=== PATIENT | male | born 1960 | race Caucasian/White ===

== ENCOUNTER 2023-10-11 23:22 | Emergency (ER) | payer BC, OTHER, MEDICAID, SELFPAY ==
[2023-10-11 23:32] VITALS: BP 146/77; PULSE 66; RESP 20; TEMP 37; O2SAT 92; BMI 33.2
--- NOTE | 2023-10-11 23:38 | DI.RAD.S_ITS ---
PROCEDURE: XR KNEE RT 3V INDICATIONS: pain, heard pop while walking up to curb TECHNIQUE: 3 views of the knee were acquired. COMPARISON: None. FINDINGS: Bones: No fractures or dislocations. No suspicious bony lesions. Tricompartmental degenerative changes. Soft tissues: Small joint effusion. No suspicious soft tissue calcifications. IMPRESSION: Right knee without acute fracture or dislocation. Small joint effusion with tricompartmental degenerative changes. If there are persistent symptoms or clinical suspicion for pathology, then repeat radiographs or advanced imaging (CT or MRI) may be considered for further evaluation. Dictated by: Bam Ramon M.D. on 10/12/2023 at 0:08 Approved by: Bam Ramon M.D. on 10/12/2023 at 0:11
--- NOTE | 2023-10-12 00:04 | ED_ITS ---
HPI - Extremity Injury (Lower) General Chief Complaint: Extremity Injury, Lower Stated Complaint: fall rt knee pain Time Seen by Provider: 10/11/23 23:25 Source: patient Mode of arrival: Ambulatory History of Present Illness HPI Narrative: 63-year-old male presents for 1 day of right knee pain. In computer stated complaint states ?fall right knee pain?, however patient states that he felt a ?pop? while walking up hill and did not fall. Denies any traumatic injury to his extremities. Reports pain with ambulation, particularly all over the kneecap area. Denies numbness, weakness, tingling. Significant other at bedside states ?we walked almost a mile to get here?. Related Data Allergies Allergy/AdvReac Type Severity Reaction Status Date / Time No Known Drug Allergies Allergy Verified 10/12/23 00:52 Review of Systems Review of Systems Narrative: See HPI Patient History Social History Smoking Status: Never smoker Smoking Status: Never smoker Substance Use Type: does not use Exam Initial Vital Signs Initial Vital Signs: Vital Signs Temperature 98.6 F 10/11/23 23:32 Pulse Rate 66 10/11/23 23:32 Respiratory Rate 20 10/11/23 23:32 Blood Pressure 146/77 H 10/11/23 23:32 Pulse Oximetry 92 10/11/23 23:32 Oxygen Delivery Method Room Air 10/11/23 23:32 Const: Awake, alert, no acute distress, nontoxic appearing MSK: No deformity, generalized tenderness over patellar region, 2+ DP pulses, sensation and movement intact bilaterally Skin: Warm, Dry, intact, no rashes Neuro: AO x3, CN II-XII grossly intact, moves all extremities Course Orders Ordered: ED Orders 10/11/23 23:36 Consult to ENVIRONMENTAL CONSERVATION OFFICER - Reclamation Kettle Tender Stat 10/11/23 23:38 XR knee RT 3V Stat Discontinued Medications Hydrocodone Bitart/Acetaminophen (Hydrocodone/Acet 5/325 Tablet) 1 tab PO NOW ONE Stop: 10/12/23 00:29 Last Admin: 10/12/23 00:41 Dose: Not Given Documented By: SB Vital Signs Vital signs: Vital Signs - 8 hr 10/11/23 23:32 10/12/23 01:09 Temperature 98.6 F 98.3 F Pulse Rate 66 59 L Respiratory Rate 20 16 Blood Pressure 146/77 H 122/63 Pulse Oximetry 92 93 Oxygen Delivery Method Room Air Room Air MDM - Extremity Injury (Lower) MDM Narrative Medical decision making narrative: Popping noise while walking and subsequent pain. Patient ambulated a great distance to come to the emergency department in his ambulatory in the emergency department. Generalized tenderness over knee without obvious deformity or abnormality. X-ray imaging negative for acute fracture. Possible ligamentous injury, however this would require MRI which can be obtained at a later date. Patient was placed in knee immobilizers, given crutches for support. Counseled on rice instructions and recommended orthopedic follow up. Discharge Plan Departure Patient Disposition: Home Clinical Impression: Knee sprain Qualifiers: Encounter type: initial encounter Laterality: right Instructions: DI for Knee Sprain Activity Restrictions/Additional Instructions: Take Tylenol and ibuprofen as needed for pain. You may apply ice as needed for comfort. Please follow up with Orthopedic surgery if you continued to have pain as you may eventually need an MRI, however this would not be gotten through the emergency department. Referrals: Edilberto Sumner MD [Physician] - Stand Alone Forms: Patient Portal/API
[2023-10-12 01:09] VITALS: BP 122/63; PULSE 59; RESP 16; TEMP 36.8; O2SAT 93
== END 2023-10-12 01:03 | disposition home or self-care (01) ==
PROVIDERS: Emergency Provider Emergency Medicine
DX: S83.91XA Sprain of unspecified site of right knee, initial encounter (principal); Y93.01 Activity, walking, marching and hiking
CPT/HCPCS: 29505; 73562; 99283

== ENCOUNTER 2023-11-02 19:23 | Observation (INO) | payer MEDICARE, BC, MEDICAID, SELFPAY ==
[2023-11-02] VITALS (15 sets, daily range): BP systolic 107–159; BP diastolic 62–81; PULSE 39–48; RESP 14–24; TEMP 36.8; O2SAT 94–97; BMI 32.5
--- NOTE | 2023-11-02 19:35 | DI.RAD.S_ITS ---
PROCEDURE: XR CHEST 1V INDICATIONS: chest pain TECHNIQUE: One view of the chest was acquired. COMPARISON: None. FINDINGS: Surgical changes and devices: None. Lungs and pleura: Lungs are clear. No pleural effusions or pneumothorax. Mediastinum: Mediastinal contours appear normal. Heart size is normal. Bones and chest wall: No suspicious bony lesions. Overlying soft tissues appear unremarkable. IMPRESSION: No acute cardiopulmonary abnormality is seen. Dictated by: Mina Paniagua M.D. on 11/02/2023 at 20:30 Approved by: Mina Paniagua M.D. on 11/02/2023 at 20:31
[2023-11-02 19:57] LABS: Add Manual Diff / Slide Review NO; Basophils Absolute Auto 0 /uL (0-100); Basophils Percent Auto 0.4 % (0-2); Eosinophils Absolute Auto 200 /uL (0-450); Eosinophils Percent Auto 2.4 % (2-4); Hematocrit 46.3 % (41-53); Hemoglobin 15.3 g/dL (13.5-17.5); Lymphocytes Absolute Auto 800 /uL (1100-4500); Lymphocytes Percent Auto 12.2 % (25-40); Mean Corpuscular Volume 81.8 fL (80-100); Monocytes Absolute Auto 400 /uL (0-900); Monocytes Percent Auto 5.4 % (3-14); Neutrophils Absolute Auto 5200 /uL (1500-7000); Neutrophils Percent Auto 79.6 % (50-75); Platelet Count 198 X10^3/uL (150-400); Red Blood Cell Count 5.66 X10^6/uL (4.5-5.9); Red Cell Distribution Width 13.6 % (11.6-14.8); White Blood Cell Count 6.5 X10^3/uL (4.5-11.0)
[2023-11-02 20:03] LABS: Prothrombin Time 11.1 SECONDS (9.4-12.5)
[2023-11-02] MEDS: ASPIRIN 81 MG CHEW TAB 324 MG PO (20:03)
[2023-11-02 20:06] LABS: PTT Partial Thromboplastin Tim 39 SECONDS (25.1-36.5)
[2023-11-02 20:08] LABS: Alanine Aminotransferase 25 IU/L (<50); Albumin 4.7 g/dL (3.5-5.0); Albumin Globulin Ratio 1.6 (1.0-2.8); Alkaline Phosphatase 82 U/L (38-126); Aspartate Aminotransferase 25 IU/L (17-59); BUN Creatinine Ratio 16.9 (6-22); Bilirubin Total 0.5 mg/dL (0.2-1.3); Blood Urea Nitrogen 20 mg/dL (9-20); Calcium 9.2 mg/dL (8.4-10.2); Carbon Dioxide 29 mmol/L (22-32); Chloride 103 mmol/L (98-107); Creatine Kinase 117 U/L (55-170); Estimated Glomerular Filt Rate > 60 mL/min (>60); Glucose 78 mg/dL (80-110); HEMOLYSIS < 15 (0-50); Lipase 46 U/L (23-300); Magnesium 2.1 mg/dL (1.6-2.3); Potassium 3.9 mmol/L (3.4-5.1); Sodium 137 mmol/L (137-145); Total Protein 7.7 g/dL (6.3-8.2)
[2023-11-02 20:19] LABS: Troponin I < 0.012 ng/mL (0.01-0.034)
--- NOTE | 2023-11-02 20:33 | ED_ITS ---
HPI - General Adult General Chief complaint: Chest Pain Stated complaint: shaky, sweaty, has heart issues Time Seen by Provider: 11/02/23 20:33 Source: patient Mode of arrival: Ambulatory History of Present Illness HPI narrative: 63-year-old male with no known CAD, awaiting stress test next week with Dr. Julio, had ZIO patch quality assurance monitor chassis placed in the office of Cardiology earlier today, this afternoon subsequent to that procedure he was sanding wood outside, with a fairly small digester hand, had severe anterior chest pain, became diaphoretic, when inside house and sat/laid down on couch, woke up 2 hours later, thinks he passed out on the couch, upon awakneing was still having chest discomfort aching in right upper anterior but less severe, some nausea, no longer having diaphoresis, residual chest pain not worse with upper extremity movements. Still having some nausea, no emesis. No blunt trauma or injury to his head. No headache. No focal weakness to face arm or leg. He did not try any medications to make the symptoms get better, though he did try to drink some ice tea, no change in symptoms. Here for further evaluation. Still having some chest discomfort. Related Data Home Medications Medication Instructions Recorded Confirmed lisinopril 30 mg tablet 30 mg PO DAILY 11/02/23 11/02/23 methadone 10 mg tablet 80 mg PO DAILY 11/02/23 11/03/23 tamsulosin 0.4 mg capsule (Flomax) 0.4 mg PO BEDTIME 11/02/23 11/02/23 Allergies Allergy/AdvReac Type Severity Reaction Status Date / Time No Known Drug Allergies Allergy Verified 10/12/23 00:52 Patient History Social History household members: spouse Smoking Status: Never smoker alcohol intake: never Smoking Status: Never smoker Substance Use Type: does not use Exam Narrative Exam Narrative: GENERAL: [] year old patient appears stated age. Well-developed patient, in mild distress. HEAD: Atraumatic. Normocephalic. EYES: Pupils equal round and reactive. Extraocular motions intact. No scleral icterus. No injection or drainage. ENT: Nose without bleeding, purulent drainage. Throat without erythema, tonsillar hypertrophy or exudate. Airway patent. NECK: Trachea midline. Non tender CARDIOVASCULAR: Regular rate and rhythm without murmurs, gallops, or rubs. RESPIRATORY: Clear to auscultation. Breath sounds equal bilaterally. No wheezes, rales, or rhonchi. Zio-like device left upper mid chest in place, was placed earlier today in cardiology clinic. GASTROINTESTINAL: Abdomen soft, non-tender, nondistended. EXTREMITIES: No edema or joint tenderness. BACK: Nontender without deformity or crepitance. No flank tenderness. NEURO: AOx3. SKIN: No rash or erythema of visible areas Initial Vital Signs Initial Vital Signs: Vital Signs Temperature 98.3 F 11/02/23 19:28 Pulse Rate 46 L 11/02/23 19:28 Respiratory Rate 18 11/02/23 19:28 Blood Pressure 117/77 11/02/23 19:28 Pulse Oximetry 96 11/02/23 19:28 Oxygen Delivery Method Room Air 11/02/23 19:28 Course Orders Ordered: Discontinued Medications Acetaminophen (Acetaminophen 325 Mg Tablet) 650 mg PO Q6H PRN PRN Reason: Fever/Mild Pain (1-3) Albuterol (Albuterol 2.5 Mg/3 Ml Neb (Adult)) 2.5 mg INH [id number] PRN PRN Reason: Dyspnea Aspirin (Aspirin 81 Mg Chew Tab) 324 mg PO NOW ONE Stop: 11/02/23 19:36 Last Admin: 11/02/23 20:03 Dose: 324 mg Documented By: LORETO Aspirin (Aspirin Ec 81 Mg Tablet) 81 mg PO DAILY [facility] Last Admin: 11/03/23 08:43 Dose: 81 mg Documented By: JACKSON Hydralazine HCl (Hydralazine 20 Mg/Ml Vial) 10 mg IV Q6HR PRN PRN Reason: SBP>= 160 or DBP >=110 Lisinopril (Lisinopril 10 Mg Tablet) 30 mg PO DAILY [facility] [place] Last Admin: 11/03/23 08:43 Dose: 30 mg Documented By: JACKSON Melatonin (Melatonin 3 Mg Tablet) 9 mg PO BEDTIME PRN PRN Reason: insomnia Methadone HCl (Methadone 10 Mg Tablet) 75 mg PO DAILY [facility] Last Admin: 11/03/23 08:42 Dose: 75 mg Documented By: JACKSON Morphine Sulfate (Morphine 2 Mg/Ml Inj) 2 mg IV NOW ONE Stop: 11/02/23 20:45 Last Admin: 05/16/24 21:31 Dose: 2 mg Documented By: LORETO Naloxone HCl (Naloxone 0.4 Mg/Ml Vial) 0.2 mg IV Q2MIN PRN PRN Reason: Opiate Reversal Ondansetron HCl (Ondansetron 4 Mg/2 Ml Inj) 4 mg IV NOW ONE Stop: 11/02/23 20:46 Last Admin: 11/02/23 21:32 Dose: 4 mg Documented By: LORETO Ondansetron HCl (Ondansetron 4 Mg/2 Ml Inj) 4 mg IV Q8HR PRN PRN Reason: Nausea And Vomiting Tamsulosin HCl (Tamsulosin 0.4 Mg Capsule) 0.4 mg PO BEDTIME ALON Vital Signs Vital signs: Vital Signs - 8 hr 11/02/23 19:28 11/02/23 19:53 11/02/23 19:53 Temperature 98.3 F Pulse Rate 46 L 44 L Respiratory Rate 18 23 Blood Pressure 117/77 107/62 Pulse Oximetry 96 96 Oxygen Delivery Method Room Air 11/02/23 20:00 11/02/23 20:00 11/02/23 20:30 Temperature Pulse Rate 48 L 44 L Respiratory Rate 22 20 Blood Pressure 159/81 H Pulse Oximetry 95 94 Oxygen Delivery Method 11/02/23 20:31 11/02/23 20:31 11/02/23 21:00 Temperature Pulse Rate 43 L 43 L Respiratory Rate 16 24 Blood Pressure 134/70 Pulse Oximetry 94 95 Oxygen Delivery Method 11/02/23 21:01 11/02/23 21:01 11/02/23 21:30 Temperature Pulse Rate 43 L 45 L Respiratory Rate 17 20 Blood Pressure 154/70 H Pulse Oximetry 95 94 Oxygen Delivery Method 11/02/23 21:31 11/02/23 21:31 11/02/23 22:00 Temperature Pulse Rate 43 L Respiratory Rate 19 Blood Pressure 148/75 H 135/66 Pulse Oximetry 97 Oxygen Delivery Method 11/02/23 22:00 11/02/23 22:30 11/02/23 22:31 Temperature Pulse Rate 41 L 41 L Respiratory Rate 16 14 Blood Pressure 148/70 H Pulse Oximetry 95 94 Oxygen Delivery Method 11/02/23 22:31 11/02/23 23:00 11/02/23 23:01 Temperature Pulse Rate 41 L 41 L 41 L Respiratory Rate 17 18 18 Blood Pressure Pulse Oximetry 95 94 95 Oxygen Delivery Method 11/02/23 23:01 11/02/23 23:30 11/02/23 23:30 Temperature Pulse Rate 39 L Respiratory Rate 18 Blood Pressure 139/67 148/69 H Pulse Oximetry 94 Oxygen Delivery Method 11/03/23 00:00 11/03/23 00:01 11/03/23 00:01 Temperature Pulse Rate 41 L 40 L Respiratory Rate 20 19 Blood Pressure 142/84 H Pulse Oximetry 93 92 Oxygen Delivery Method 11/03/23 00:30 11/03/23 00:30 Temperature Pulse Rate 43 L Respiratory Rate 14 Blood Pressure 151/81 H Pulse Oximetry 91 Oxygen Delivery Method Medical Decision Making Differential Diagnosis Differential Diagnosis: Exertional chest pain, ACS, PE, syncopal episode possible Lab Data Lab results reviewed: Yes I reviewed the patient's lab results. 11/02/23 19:45 11/03/23 04:53 Labs: Lab Results 11/02/23 11/02/23 Range/Units 19:45 21:41 WBC 6.5 (4.5-11.0) X10^3/uL RBC 5.66 (4.5-5.9) X10^6/uL Hgb 15.3 (13.5-17.5) g/dL Hct 46.3 (41-53) % MCV 81.8 (80-100) fL MCH 27.0 (26-34) PG MCHC 33.0 (30-36) % RDW 13.6 (11.6-14.8) % Plt Count 198 (150-400) X10^3/uL Neut % (Auto) 79.6 H (50-75) % Lymph % (Auto) 12.2 L (25-40) % Dolores % (Auto) 5.4 (3-14) % Eos % (Auto) 2.4 (2-4) % Baso % (Auto) 0.4 (0-2) % Neut # (Auto) 5200 (4807-3556) /uL Lymph # (Auto) 800 L (7064-5660) /uL Dolores # (Auto) 400 (0-900) /uL Eos # (Auto) 200 (0-450) /uL Baso # (Auto) 0 (0-100) /uL PT 11.1 (9.4-12.5) SECONDS INR 1.0 (0.9-1.3) APTT 39 H (25.1-36.5) SECONDS D-Dimer 338 (<500) ng/ml Sodium 137 (137-145) mmol/L Potassium 3.9 (3.4-5.1) mmol/L Chloride 103 (98-107) mmol/L Carbon Dioxide 29 (22-32) mmol/L BUN 20 (9-20) mg/dL Creatinine 1.18 (0.66-1.25) mg/dL Estimated GFR > 60 (>60) mL/min BUN/Creatinine Ratio 16.9 (6-22) Glucose 78 L (80-110) mg/dL Calcium 9.2 (8.4-10.2) mg/dL Magnesium 2.1 (1.6-2.3) mg/dL Total Bilirubin 0.5 (0.2-1.3) mg/dL AST 25 (17-59) IU/L ALT 25 (<50) IU/L Alkaline Phosphatase 82 (38-126) U/L Total Creatine Kinase 117 (55-170) U/L Troponin I < 0.012 < 0.012 (0.01-0.034) ng/mL Total Protein 7.7 (6.3-8.2) g/dL Albumin 4.7 (3.5-5.0) g/dL Globulin 3.0 (1.7-4.1) g/dL Albumin/Globulin Ratio 1.6 (1.0-2.8) Lipase 46 (23-300) U/L ECG Data Attestation: I personally reviewed and interpreted this ECG as follows: Interpretation: Sinus bradycardia with rate 43 bpm, no obvious ST sgment elevation or depression changes, normal PA interval, normal QRS interval, normal QTc MDM Narrative Medical decision making narrative: 63-year-old male with chest pain at onset 3:30 p.m. while standing would outside, sweatiness for about 30 minutes, then substernal chest discomfort, pressure sensation, he laid down, unclear if he fell asleep or if he passed out, woke up 2 hours later with chest discomfort persisting but less intense than prior. Screening EKG shows sinus bradycardia with rate of 43, normal intervals. No ST segment elevation depression changes obvious. T-wave inversion lead 3 but upright in leads F and 2. Initial troponin negative. Creatinine normal, D- dimer pending. CT head noncontrast study. Given oral aspirin here. Trial of morphine/Zofran for residual chest discomfort Additional Information: Interval repeat troponin negative. CT head negative. Syncope and chest pain, patient admits that he has had prior blood clot than tablets of the lungs, no longer on blood thinning medication. CTA chest ordered. CTA chest negative. Consider admission for syncope, we will consult with Cardiology on-call Spoke with Dr. Reynolds cardiology at [facility], who did not feel that patient needed to be transfer at this time. I spoke with Dr. Villegas cardiology on-call here at [place], she can consult, admit to observation telemetry, they can try to review records from [facility] tomorrow, she stated that patient will likely need follow-up Zio-device interrogation to evaluate if there was any bradycardia/tachycardia event causing syncope. We will contact hospitalist Dr. Phillips Case discussed with Dr. Phillips, accepts patient for admission to observation Critical Care Time Critical Care Time Total Critical Care Time: 35 Attestation: The high probability of a clinically significant, sudden or life threatening deterioration of the [cardiopulmonary] system(s) required my full and direct attention, intervention and personal management. The aggregate critical care time was [35] minutes. This time is in addition to time spent performing reported procedures but includes the following: [x] Data Review and interpretation [x] Patient assessment and monitoring of vital signs [x] Documentation [x] Medication orders and management Discharge Plan Departure Patient Disposition: Admitted as Observation Clinical Impression: Chest pain, Bradycardia Admit Date/Time: 11/03/23 01:03 Admit Provider: Brian Phillips
--- NOTE | 2023-11-02 20:43 | DI.CT.S_ITS ---
PROCEDURE: CT HEAD/BRAIN WO CON INDICATIONS: passed out, ?syncope TECHNIQUE: Noncontrast 4.5 mm thick angled axial sections acquired from the foramen magnum to the vertex, with coronal and sagittal reformats. For radiation dose reduction, the following was used: automated exposure control, adjustment of mA and/or kV according to patient size. COMPARISON: None. FINDINGS: Image quality: Diagnostic. CSF spaces: Basal cisterns are patent. No extra-axial fluid collections. Ventricles are normal in size and shape. Brain: No midline shift. No intracranial masses or hemorrhage. Delvalle-white matter interface is within normal limits. Skull and face: Calvarium and visualized facial bones are intact, without suspicious lesions. Sinuses: Visualized sinuses and mastoids are clear. IMPRESSION: No acute intracranial pathology. Dictated by: Mina Paniagua M.D. on 11/02/2023 at 22:19 Approved by: Mina Paniagua M.D. on 11/02/2023 at 22:21
[2023-11-02 20:58] LABS: D Dimer 338 ng/ml (<500)
[2023-11-02] MEDS: MORPHINE 2 MG/ML INJ IV (21:31)
[2023-11-02] MEDS: ONDANSETRON 4 MG/2 ML INJ IV (21:32)
[2023-11-02 22:32] LABS: Troponin I < 0.012 ng/mL (0.01-0.034)
--- NOTE | 2023-11-02 22:55 | DI.CT.S_ITS ---
PROCEDURE: CT ANGIO CHEST PE PROTOCOL INDICATIONS: syncope, chest pain, hx PE TECHNIQUE: After the administration of intravenous contrast, 2 mm thick sections acquired from the pulmonary apices to the posterior costophrenic angles. 3-dimensional maximum intensity projection (MIP) coronal and sagittal reformats were then acquired through the thorax. For radiation dose reduction, the following was used: automated exposure control, adjustment of mA and/or kV according to patient size. COMPARISON: [facility], CR, XR CHEST 1V, 11/02/2023, 19:52. FINDINGS: Image quality: Diagnostic. Pulmonary arteries: Pulmonary arteries are normal in size, and demonstrate no intraluminal filling defects to suggest central pulmonary embolism. Reflux into the IVC and hepatic veins. Lower Neck: No enlarged lymph nodes. Thyroid: No thyroid nodules which require sonographic follow up, per consensus guidelines. Axillae: No enlarged lymph nodes. Chest Wall: Unremarkable. Bones: Unremarkable. Lungs and Pleura: No pneumothorax or pleural effusions. No consolidation or suspicious nodules. Mild atelectasis at the lung bases. Heart: Heart size is normal. No pericardial effusion. Thoracic Vessels: No aortic aneurysm. Mediastinum and Liat: No enlarged lymph nodes. Esophagus: No wall thickening. No hiatal hernia. Upper Abdomen: Visualized upper abdomen solid organs and bowel loops appear normal. IMPRESSION: No pulmonary embolus. No acute cardiopulmonary process. Reflux of contrast into the IVC and hepatic veins. This could be seen in the setting of diastolic dysfunction. Dictated by: Mina Paniagua M.D. on 11/03/2023 at 0:23 Approved by: Mina Paniagua M.D. on 11/03/2023 at 0:28
[2023-11-03] VITALS (10 sets, daily range): BP systolic 122–179; BP diastolic 64–84; PULSE 40–53; RESP 14–20; TEMP 36.4–36.7; O2SAT 91–97; BMI 32.5
--- NOTE | 2023-11-03 01:13 | DI.ECHO.S_ITS ---
[facility]+ [facility] : : [address] : : [place] : : [id number] : : Phone: [phone] Echocardiogram Report + + :Name: RONNIE CARBAJAL Study Date: 11/03/2023 Height: 72 in : :[facility] ReadingLocation: Weight: 240 lb : : Gender: Male BSA: 2.3 m2 : :: 1960 Age: 63 yrs BP: 125/72 mmHg: :Reason For Study: SYNCOPE : :Ordering Physician: JOSÉ ANTONIO, : :HALEY Performed By: Antoni Maurice : :Referring: HALEY CHOU : + + Interpretation Summary 1. The left ventricular contractility is normal. Estimated ejection fraction is greater than 60% with no segmental wall motion abnormalities. No left ventricular hypertrophy is noted. No diastolic dysfunction present. 2. The right ventricular contractility is normal. 3. All cardiac chambers are of normal size. 4. There is mild aortic insufficiency noted. 5. No obvious intracardiac shunts noted. 6. No obvious intracardiac masses nor thrombi are appreciated. 7. No hemodynamically significant pericardial effusion present. Conclusion: Normal biventricular function with no significant valvular abnormalities. Procedure: A two-dimensional transthoracic echocardiogram with color flow and Doppler was performed. The study quality was technically adequate. There is no prior echocardiogram noted for this patient. The patient was in sinus bradycardia with heart rates between 38-47 bpm during the exam. Left Ventricle: Left ventricular wall thickness is borderline increased. The left ventricle is normal in size. The ejection fraction is estimated to be 60- 65%. Right Ventricle: The right ventricle is normal in size and function. Atria: The left atrial size is normal. The right atrium is normal in size. The interatrial septum grossly appears intact with no obvious evidence for an atrial septal defect. Mitral Valve: The mitral valve is normal in structure and function. There is no mitral valve stenosis. There is trace mitral regurgitation. Aortic Valve: The aortic valve is trileaflet. There is no aortic valve stenosis. There is mild aortic regurgitation. Tricuspid Valve: The tricuspid valve is normal. There is no tricuspid stenosis. There is trace tricuspid regurgitation. The right ventricular systolic pressure is estimated to be at least 37.8 mmHg based on an estimated right atrial pressure of 3 mm Hg. Pulmonic Valve: The pulmonic valve is not well visualized. There is no pulmonic valvular stenosis. There is no pulmonic valvular regurgitation. Great Vessels: The aortic root is mildly dilated. The dimensions of the ascending aorta are normal. The IVC is of normal diameter and collapses greater than 50% with a sniff. This suggests a low right atrial pressure of 3 mm Hg. Pericardium/ Pleura There is no pericardial effusion. There is no pleural effusion. MMode/2D Measurements & Calculations LVIDd: 5.6 cm LVOT diam: 2.5 cm LVIDs: 3.6 cm Ao root diam: 4.0 cm FS: 35.4 % asc Aorta Diam: 3.3 cm IVSd: 1.2 cm Ao Arch Diam (Prox Trans): 3.3 cm LVPWd: 1.0 cm LV larson. diameter/BSA (cm/m^2): 2.4 LV sys. diameter/BSA (cm/m^2): 1.6 LA A2 area: 20.9 cm2 RA long axis: 5.8 cm LA A4 area: 22.7 cm2 RA area: 21.6 cm2 LA length (vol): 5.5 cm RA vol: 68.2 ml LA vol: 72.5 ml RA : 29.6 ml/m2 LA vol index: 31.5 ml/m2 IVC diam: 1.8 cm RVD1 (basal): 3.6 cm RVD2 (mid): 3.3 cm TAPSE: 2.5 cm Doppler Measurements & Calculations Ao V2 max: 134.8 cm/sec LVOT Max Kieran: 108.4 cm/sec Ao V2 mean: 91.6 cm/sec LV V1 max P.7 mmHg Ao max P.3 mmHg LV V1 VTI: 27.5 cm Ao mean P.7 mmHg SONY(I,D): 3.7 cm2 Ao V2 VTI: 35.6 cm SONY(V,D): 3.8 cm2 sev ratio: 0.77 SONY indexed to BSA (cm^2/m^2): 1.6 AI P1/2t: 1062 msec AI dec slope: 141.2 cm/sec2 MV E max kieran: 69.6 cm/sec TR max kieran: 294.8 cm/sec MV A max kieran: 56.6 cm/sec TR max P.8 mmHg MV E/A: 1.2 Med Peak E' Kieran: 8.5 cm/sec E/E' med: 8.2 Lat Peak E' Kieran: 8.8 cm/sec E/E' lat: 7.9 E/e' average: 8.1 MV dec time: 0.25 sec SV(LVOT): 131.4 ml Reading Physician:
[2023-11-03 02:08] LABS: Troponin I < 0.012 ng/mL (0.01-0.034)
--- NOTE | 2023-11-03 04:46 | P.HP_ITS ---
History of Present Illness History of Present Illness Chief complaint: shaky, sweaty, has heart issues Narrative: 63 years old male with history of CAD, hypertension, BPH presented to the ER with syncopal episode and symptomatic bradycardia. Earlier today the patient became diaphoretic, dizzy, shaking, feeling thirsty and went inside and laid down. The patient does not remember what happened with him and thinks he might blacked out. Unclear if he laid down and fell asleep or he just passed out. He also was complaining of substernal chest discomfort. The patient was just seen by cardiology and had monitor car operator patch placed for 2 weeks and was supposed to be scheduled for stress test in the next few weeks. Denies any neurodeficits, palpitations, nausea, vomiting, abdominal pain, diarrhea or dysuria. Currently on methadone for several years due to chronic back pain. In the ER he was found to have bradycardia with down to 39 and sustaining mid 40?50. Cardiology was consulted and recommended admission for observation and further workup. CT of the chest was negative, interval repeat troponin negative, CT of the head negative, EKG shows sinus rhythm with T wave inversion in lead III. In the ER he was given aspirin, morphine, Zofran and was decided to be admitted for further management. Laboratory was essentially unremarkable except of glucose 79. [facility] Social History household members: spouse Smoking Status: Never smoker alcohol intake: never Meds Home Medications and Allergies Home Medications Medication Instructions Recorded Confirmed Type lisinopril 30 mg tablet 30 mg PO DAILY 11/02/23 11/02/23 History methadone 10 mg tablet 75 mg PO DAILY 11/02/23 11/02/23 History tamsulosin 0.4 mg capsule (Flomax) 0.4 mg PO BEDTIME 11/02/23 11/02/23 History Allergies Allergy/AdvReac Type Severity Reaction Status Date / Time No Known Drug Allergies Allergy Verified 10/12/23 00:52 Review of Systems Review of Systems ROS: Yes All systems reviewed with the patient and are negative except as otherwise documented Constitutional Constitutional: Reports as per HPI and Reports system reviewed and no additional complaints, except as documented Eyes Eyes: Reports as per HPI and Reports system reviewed and no additional complaints, except as documented ENT Ears, Nose, Mouth, and Throat: Yes as per HPI and Yes system reviewed and no additional complaints, except as documented Cardiovascular Cardiovascular: Reports system reviewed and no additional complaints, except as documented Respiratory Respiratory: Reports system reviewed and no additional complaints, except as documented Gastrointestinal Gastrointestinal: Reports system reviewed and no additional complaints, except as documented Genitourinary Genitourinary: Reports system reviewed and no additional complaints, except as documented Musculoskeletal Musculoskeletal: Reports system reviewed and no additional complaints, except as documented, Reports abnormal gait and Reports numbness Neurologic Neurologic: Reports system reviewed and no additional complaints, except as documented, Reports abnormal gait, Reports confusion and Reports numbness Psychiatric Psychiatric: Reports system reviewed and no additional complaints, except as documented and Reports confusion Exam Vital Signs (past 8 hours): - 11/02/23 21:00 11/02/23 21:01 11/02/23 21:01 Temperature Pulse Rate 43 L 43 L Respiratory Rate 24 17 Blood Pressure 154/70 H Pulse Oximetry 95 95 11/02/23 21:30 11/02/23 21:31 11/02/23 21:31 Temperature Pulse Rate 45 L 43 L Respiratory Rate 20 19 Blood Pressure 148/75 H Pulse Oximetry 94 97 11/02/23 22:00 11/02/23 22:00 11/02/23 22:30 Temperature Pulse Rate 41 L 41 L Respiratory Rate 16 14 Blood Pressure 135/66 Pulse Oximetry 95 94 11/02/23 22:31 11/02/23 22:31 11/02/23 23:00 Temperature Pulse Rate 41 L 41 L Respiratory Rate 17 18 Blood Pressure 148/70 H Pulse Oximetry 95 94 11/02/23 23:01 11/02/23 23:01 11/02/23 23:30 Temperature Pulse Rate 41 L 39 L Respiratory Rate 18 18 Blood Pressure 139/67 Pulse Oximetry 95 94 11/02/23 23:30 11/03/23 00:00 11/03/23 00:01 Temperature Pulse Rate 41 L 40 L Respiratory Rate 20 19 Blood Pressure 148/69 H Pulse Oximetry 93 92 11/03/23 00:01 11/03/23 00:30 11/03/23 00:30 Temperature Pulse Rate 43 L Respiratory Rate 14 Blood Pressure 142/84 H 151/81 H Pulse Oximetry 91 11/03/23 01:00 11/03/23 01:00 11/03/23 01:30 Temperature 97.7 F Pulse Rate 41 L 48 L Respiratory Rate 20 14 Blood Pressure 179/82 H 129/67 Pulse Oximetry 93 97 Oxygen Delivery Method Room Air Const General: cooperative, comfortable and well developed Orientation: alert and oriented x3 [facility] Head: normal to inspection, normocephalic and atraumatic Face and sinus: normal facial exam Mouth: oral mucosae normal and moist mucous membranes Throat: posterior oropharynx normal Eyes General: appearance normal, both eyes and all related structures Pupils: PERRL EOM: EOM intact bilaterally Neck Neck: normal visual inspection and full ROM Chest Chest: normal inspection of the chest Resp Effort & Inspection: normal respiratory effort and able to speak in complete sentences Auscultation: clear to auscultation bilaterally Cardio Palpation: normal PMI Rate: regular rate Rhythm: regular rhythm Heart Sounds: S1 normal and S2 normal GI Inspection: normal to inspection Palpation: soft and no hepatosplenomegaly Auscultation: normal bowel sounds Skin General: no rashes or lesions noted Lesions: no lesions Rashes: no rashes Trauma: no lacerations or abrasions Neuro General: patient alert, patient awake, patient oriented x3 and no focal motor deficits Cranial Nerves: CN's II-XI intact bilaterally Cognition: normal cognition Speech: speech normal Gait: normal gait Motor: muscle tone normal throughout Sensory Exam: no sensory deficits noted Extrem General: full ROM and no calf tenderness Psych Appearance: grossly normal Mental Status: mental status grossly normal Speech and Movement: speech and movement normal Objective Labs 11/02/23 19:45 11/02/23 19:45 Labs: Laboratory Results - last 24 hr 11/02/23 11/02/23 11/03/23 19:45 21:41 01:27 WBC 6.5 RBC 5.66 Hgb 15.3 Hct 46.3 MCV 81.8 MCH 27.0 MCHC 33.0 RDW 13.6 Plt Count 198 Neut % (Auto) 79.6 H Lymph % (Auto) 12.2 L Gilliam % (Auto) 5.4 Eos % (Auto) 2.4 Baso % (Auto) 0.4 Neut # (Auto) 5200 Lymph # (Auto) 800 L Gilliam # (Auto) 400 Eos # (Auto) 200 Baso # (Auto) 0 PT 11.1 INR 1.0 APTT 39 H D-Dimer 338 Sodium 137 Potassium 3.9 Chloride 103 Carbon Dioxide 29 BUN 20 Creatinine 1.18 Estimated GFR > 60 BUN/Creatinine Ratio 16.9 Glucose 78 L Calcium 9.2 Magnesium 2.1 Total Bilirubin 0.5 AST 25 ALT 25 Alkaline Phosphatase 82 Total Creatine Kinase 117 Troponin I < 0.012 < 0.012 < 0.012 Total Protein 7.7 Albumin 4.7 Globulin 3.0 Albumin/Globulin Ratio 1.6 Lipase 46 Assessment & Plan Assessment & Plan narrative: Symptomatic bradycardia with unclear etiology Syncope/Near Syncope -Telemonitoring to r/o any arrhythmias; -monitor K, Mg, Ca and replace as needed; -Check orthostatics; -Serial Troponins to rule out ACS; -check 2D echo, -Fall precautions/PT/OT -Start ASA -Cardiology consul Borderline hypoglycemia. Check A1c and monitor. Hypertension. Restart lisinopril. Monitor blood pressure closely Chronic back pain. Restart methadone. BPH. Restart Flomax. Time Spent With Patient Time with patient: 50 to 69 minutes with 50% spent counseling/coordinating care Quality VTE Deep Vein Thrombosis/Pulmonary Embolism Present on Admission: No MIPS - Admit I confirm the patient?s Advance Care Plan is present, Code status is documented, Surrogate decision maker is in patient?s record [If Yes, STOP here]: Yes MIPS - Meds 'Current medications' to include all prescriptions, [id number] products, herbals, cannabis/cannabidiol products, and vitamin/mineral/dietary (nutritional) supplements. I have utilized all available resources to obtain, update, or review the patient?s current medications. [If Yes, STOP here]: Yes
[2023-11-03 07:57] LABS: Troponin I < 0.012 ng/mL (0.01-0.034)
[2023-11-03] MEDS: METHADONE 10 MG TABLET 75 MG PO (08:42)
[2023-11-03] MEDS: ASPIRIN EC 81 MG TABLET PO (08:43)
[2023-11-03] MEDS: lisinopriL 10 MG TABLET 30 MG PO (08:43)
--- NOTE | 2023-11-03 11:50 | PM.DS.1 ---
History of Present Illness History of Present Illness Date Patient Seen: 11/03/23 Time Patient Seen: 11:50 Chief complaint: shaky, sweaty, has heart issues Narrative: Per admitting provider, 63 years old male with history of CAD, hypertension, BPH presented to the ER with syncopal episode and symptomatic bradycardia. Earlier today the patient became diaphoretic, dizzy, shaking, feeling thirsty and went inside and laid down. The patient does not remember what happened with him and thinks he might blacked out. Unclear if he laid down and fell asleep or he just passed out. He also was complaining of substernal chest discomfort. The patient was just seen by cardiology and had psychological operations officer patch placed for 2 weeks and was supposed to be scheduled for stress test in the next few weeks. Denies any neurodeficits, palpitations, nausea, vomiting, abdominal pain, diarrhea or dysuria. Currently on methadone for several years due to chronic back pain. In the ER he was found to have bradycardia with down to 39 and sustaining mid 40?50. Cardiology was consulted and recommended admission for observation and further workup. CT of the chest was negative, interval repeat troponin negative, CT of the head negative, EKG shows sinus rhythm with T wave inversion in lead III. In the ER he was given aspirin, morphine, Zofran and was decided to be admitted for further management. Laboratory was essentially unremarkable except of glucose 79. Discharge Providers Provider Date of admission: 11/03/23 01:03 Discharge Date: 11/03/23 Primary care physician: Doctor Kyra MD Consults: 11/03/23 01:11 Consult to Occupational Therapy Evaluate & Treat Comment: Physician Instructions: Evaluate and treat Consult to Physical Therapy Evaluate & Treat Comment: Physician Instructions: Evaluate and Treat Discharge provider: Pradeep Cooper DO Summary Hospital Course Discharge Diagnosis: Possible symptomatic bradycardia, Syncope or near syncope Borderline hypoglycemia. Hypertension. Chronic back pain. BPH. Hospital Course: This is a 63 M who presented with HTN, CAD, BPH who presented after a possible episode of diaphoresis with possible syncope. He is unable to recall much of the event, and was not seen until after the event. Initially heart rate was 39 but a sinus bradycardia and it was presumed this was possibly due to symptomatic bradycardia. His HR remained in the mid 40s on telemetry, no block was noted. Echocardiogram was unremarkable. Glucose was 78 on presentation, this may also have represented hypoglycemia however the patient had no recurrence of symptoms while here in the hospital. He already has a Zio patch on and was present during the episode. Outpatient follow up with cardiology is recommended for further review. Methadone can also cause a bradycardia, and patient would like to transition therapies away from methadone for his chronic back pain, and was given a list of local primary care providers to establish care after discharge. Time Spent with Patient Time spent: Greater than 30 minutes Exam Vital Signs (past 8 hours): - 11/03/23 05:19 11/03/23 08:43 11/03/23 08:59 Temperature 98.0 F Pulse Rate 46 L 46 L Pulse Rate [Orthostatic Lying] 44 L Pulse Rate [Orthostatic Sitting] 44 L Pulse Rate [Orthostatic Standing] 45 L Respiratory Rate 15 Blood Pressure 125/72 125/72 Blood Pressure [Orthostatic Lying] 122/64 Blood Pressure [Orthostatic Sitting] 130/73 Blood Pressure [Orthostatic Standing] 149/73 H Pulse Oximetry 95 Oxygen Flow Rate 11/03/23 09:00 Temperature 97.6 F Pulse Rate Pulse Rate [Orthostatic Lying] Pulse Rate [Orthostatic Sitting] Pulse Rate [Orthostatic Standing] Respiratory Rate Blood Pressure Blood Pressure [Orthostatic Lying] Blood Pressure [Orthostatic Sitting] Blood Pressure [Orthostatic Standing] Pulse Oximetry 93 Oxygen Flow Rate 0 Oxygen Delivery Method Room Air Oxygen Flow Rate 0 Narrative Exam Narrative: Gen: NAD CV: RRR Ext: no edema Objective Labs 11/02/23 19:45 11/03/23 04:53 Labs: Laboratory Results - last 24 hr 11/02/23 11/02/23 11/03/23 19:45 21:41 01:27 WBC 6.5 RBC 5.66 Hgb 15.3 Hct 46.3 MCV 81.8 MCH 27.0 MCHC 33.0 RDW 13.6 Plt Count 198 Neut % (Auto) 79.6 H Lymph % (Auto) 12.2 L Lipscomb % (Auto) 5.4 Eos % (Auto) 2.4 Baso % (Auto) 0.4 Neut # (Auto) 5200 Lymph # (Auto) 800 L Lipscomb # (Auto) 400 Eos # (Auto) 200 Baso # (Auto) 0 PT 11.1 INR 1.0 APTT 39 H D-Dimer 338 Sodium 137 Potassium 3.9 Chloride 103 Carbon Dioxide 29 BUN 20 Creatinine 1.18 Estimated GFR > 60 BUN/Creatinine Ratio 16.9 Glucose 78 L Calcium 9.2 Magnesium 2.1 Total Bilirubin 0.5 AST 25 ALT 25 Alkaline Phosphatase 82 Total Creatine Kinase 117 Troponin I < 0.012 < 0.012 < 0.012 Total Protein 7.7 Albumin 4.7 Globulin 3.0 Albumin/Globulin Ratio 1.6 Lipase 46 11/03/23 07:20 WBC RBC Hgb Hct MCV MCH MCHC RDW Plt Count Neut % (Auto) Lymph % (Auto) Lipscomb % (Auto) Eos % (Auto) Baso % (Auto) Neut # (Auto) Lymph # (Auto) Lipscomb # (Auto) Eos # (Auto) Baso # (Auto) PT INR APTT D-Dimer Sodium Potassium Chloride Carbon Dioxide BUN Creatinine Estimated GFR BUN/Creatinine Ratio Glucose Calcium Magnesium Total Bilirubin AST ALT Alkaline Phosphatase Total Creatine Kinase Troponin I < 0.012 Total Protein Albumin Globulin Albumin/Globulin Ratio Lipase PFSH Social History household members: spouse Smoking Status: Never smoker alcohol intake: never Discharge Plan Discharge Plan Patient Disposition: Home Provider Discharge Comment: You were admitted to the hospital with possible bradycardia. Echocardiogram is normal, no indication that you had a heart attack. Please reach out to the local offices for a primary care provider, I think you would benefit from transition away from Methadone to another opiate medication for your low back pain. No medication changes are recommended at this time. Discharge orders & Medications Prescriptions: Continued methadone 10 mg Tablet 80 mg PO DAILY tamsulosin [Flomax] 0.4 mg Capsule 0.4 mg PO BEDTIME lisinopril 30 mg Tablet 30 mg PO DAILY Follow up/Referrals: Doctor Rae MD [Primary Care Provider] - Diet/Activity/Treatments Diet: Diet as Tolerated and Regular Activity: As tolerated, no restrictions. Visit Report/Discharge Packet Stand Alone Forms: Patient Portal/API, Stroke Signs & Symptoms Discharge Data Primary Care Provider: Doctor Kyra Attending Provider: Brian Phillips Admit Date/Time: 11/03/23 01:03 Quality VTE Deep Vein Thrombosis/Pulmonary Embolism Present on Admission: No
[2023-11-03 12:47] LABS: Cholesterol 178 mg/dL (140-199); HDL Cholesterol 52 mg/dL (40-60); LDL Cholesterol Calculated 74 mg/dL (<100); Triglycerides 259 mg/dL (35-150)
[2023-11-03 12:48] LABS: Hemoglobin A1C% w Est Avg Glu 5.2 % (4.0-6.0)
[2023-11-03 12:59] LABS: Alanine Aminotransferase 20 IU/L (<50); Albumin 3.7 g/dL (3.5-5.0); Albumin Globulin Ratio 1.5 (1.0-2.8); Alkaline Phosphatase 77 U/L (38-126); Aspartate Aminotransferase 29 IU/L (17-59); BUN Creatinine Ratio 17.1 (6-22); Bilirubin Total 0.5 mg/dL (0.2-1.3); Blood Urea Nitrogen 18 mg/dL (9-20); Calcium 8.6 mg/dL (8.4-10.2); Carbon Dioxide 27 mmol/L (22-32); Chloride 104 mmol/L (98-107); Estimated Glomerular Filt Rate > 60 mL/min (>60); Globulin 2.4 g/dL (1.7-4.1); Glucose 101 mg/dL (80-110); HEMOLYSIS < 15 (0-50); Magnesium 2.2 mg/dL (1.6-2.3); Potassium 3.6 mmol/L (3.4-5.1); Sodium 134 mmol/L (137-145); Total Protein 6.1 g/dL (6.3-8.2)
[2023-11-03 13:50] LABS: Thyroid Stimulating Hormone 1.85 uIU/mL (0.47-4.68)
--- NOTE | 2023-11-03 14:54 | PC.NURSE ---
Patient is A&OX4, VSS, afebrile, Bradycardia HR in 40's on telemetry. He is ambulatory in the room and denies n/v, dizziness, SOB,CP or palpitations. He is evaluated by the hospitalist today after echo completed and cleared for discharge home today with follow up plan for PCP. He verbalizes understanding of discharge instructions, medications and plan of care. He is escorted to his private vehicle with all of his belongings this afternoon at 1345.
--- NOTE | 2023-11-03 15:26 | CM.DANOTE ---
Discharge Planning/Care Management CM Discharge Assessment Start: 11/03/23 15:24 Freq: Status: Active Protocol: Document 11/03/23 15:24 MATTHEW (Rec: 11/03/23 15:26 MATTHEW [id number]) Discharge Planning Assessment Assigned Line Supervisor RAGHAV Ni DPOA/Assigned Designee Name [place], spouse Contact Information [phone] Advance Directives? No History Provided By Patient,Medical Record Prior Living Arrangements House Household Members spouse Type of transporation used prior to Drives own vehicle admit Independent with ADL's Yes Is patient alert and oriented? Yes Needs Assistance With Home Chores / Shopping Comment Poor activity tolerance some days related to back pain Barriers to Discharge No Comment Home w/spouse, discharge order in. Close outpatient follow up. No needs from this CM team . Discharge Plan Home Transportation Arrangement Family Referrals Initiated None needed RAGHAV Black
== END 2023-11-03 13:45 | disposition home or self-care (01) ==
LOC: ED 11-03 00:51 → AC 11-03 01:04
PROVIDERS: Admitting Provider Internal Medicine; Emergency Provider Emergency Medicine; Visit Provider Internal Medicine
DX: R07.9 Chest pain, unspecified (principal); R00.1 Bradycardia, unspecified; R55 Syncope and collapse; I25.10 Atherosclerotic heart disease of native coronary artery without angina pectoris; I10 Essential (primary) hypertension
CPT/HCPCS: 36415; 70450; 71045; 71275; 80053; 80061; 82550; 83036; 83690; 83735; 84443; 84484; 85025; 85379; 85610; 85730; 93005; 93010; 93306; 96374; 96375; 99284; G0378; J2270; J2405; Q9967

== ENCOUNTER 2023-11-05 15:11 | Emergency (ER) | payer MEDICARE, BC, MEDICAID, SELFPAY ==
[2023-11-03 01:41] VITALS: BMI 32.5
[2023-11-05] VITALS (7 sets, daily range): BP systolic 116–181; BP diastolic 68–82; PULSE 40–48; RESP 15–22; TEMP 36.9; O2SAT 94–99; BMI 33.2
--- NOTE | 2023-11-05 15:26 | DI.RAD.S_ITS ---
PROCEDURE: XR CHEST 1V INDICATIONS: chest pain TECHNIQUE: One view of the chest was acquired. COMPARISON: [facility], CR, XR CHEST 1V, 11/02/2023, 19:52. FINDINGS: Surgical changes and devices: None. Lungs and pleura: Lungs are clear. No pleural effusions or pneumothorax. Mediastinum: Mediastinal contours appear normal. Heart size is normal. Bones and chest wall: No suspicious bony lesions. Overlying soft tissues appear unremarkable. IMPRESSION: No acute cardiopulmonary abnormality is seen. Dictated by: Ramiro Garcia M.D. on 11/05/2023 at 15:15 Approved by: Ramiro Garcia M.D. on 11/05/2023 at 15:16
[2023-11-05 15:51] LABS: INR 0.9 (0.9-1.3); Prothrombin Time 10.5 SECONDS (9.4-12.5)
[2023-11-05 15:53] LABS: PTT Partial Thromboplastin Tim 40 SECONDS (25.1-36.5)
[2023-11-05 15:54] LABS: Alanine Aminotransferase 24 IU/L (<50); Albumin 4.5 g/dL (3.5-5.0); Albumin Globulin Ratio 1.6 (1.0-2.8); Alkaline Phosphatase 90 U/L (38-126); Aspartate Aminotransferase 26 IU/L (17-59); BUN Creatinine Ratio 16.7 (6-22); Bilirubin Total 0.8 mg/dL (0.2-1.3); Blood Urea Nitrogen 18 mg/dL (9-20); Carbon Dioxide 29 mmol/L (22-32); Chloride 104 mmol/L (98-107); Creatine Kinase 86 U/L (55-170); Estimated Glomerular Filt Rate > 60 mL/min (>60); Globulin 2.8 g/dL (1.7-4.1); Glucose 102 mg/dL (80-110); HEMOLYSIS < 15 (0-50); Magnesium 2.3 mg/dL (1.6-2.3); Potassium 4.4 mmol/L (3.4-5.1); Sodium 137 mmol/L (137-145); Total Protein 7.3 g/dL (6.3-8.2)
[2023-11-05 15:56] LABS: Add Manual Diff / Slide Review NO; Basophils Absolute Auto 0 /uL (0-100); Basophils Percent Auto 0.5 % (0-2); Eosinophils Absolute Auto 200 /uL (0-450); Eosinophils Percent Auto 3.5 % (2-4); Hematocrit 46.6 % (41-53); Hemoglobin 15.5 g/dL (13.5-17.5); Lymphocytes Absolute Auto 900 /uL (1100-4500); Lymphocytes Percent Auto 14.2 % (25-40); Mean Corpuscular HGB Conc 33.2 % (30-36); Mean Corpuscular Hemoglobin 27.2 PG (26-34); Mean Corpuscular Volume 81.9 fL (80-100); Monocytes Absolute Auto 300 /uL (0-900); Monocytes Percent Auto 5.2 % (3-14); Neutrophils Absolute Auto 5000 /uL (1500-7000); Neutrophils Percent Auto 76.6 % (50-75); Platelet Count 201 X10^3/uL (150-400); Red Blood Cell Count 5.69 X10^6/uL (4.5-5.9); Red Cell Distribution Width 13.6 % (11.6-14.8); White Blood Cell Count 6.6 X10^3/uL (4.5-11.0)
--- NOTE | 2023-11-05 15:57 | ED.CHESTPAIN ---
HPI - Chest Pain General Chief Complaint: Chest Pain Stated Complaint: complications with his heart Time Seen by Provider: 11/05/23 15:51 Source: patient Mode of arrival: Ambulatory Limitations: no limitations History of Present Illness HPI narrative: Patient is 63-year-old male with known CAD awaiting stress test with Dr. Vasquez if he has ZIO patch monitor placed had a syncopal episode 3 days ago. He came to the ED and was evaluated, he had a full workup and was ultimately admitted for observation, thought that methadone may have caused his bradycardia. He would heart rate 40-41 which may have caused his syncopal episode. Fortunately he had the ZIO patch and at that time. Now he is presenting with just increasing shortness of breath no real chest pain or dizziness still not feeling great. He has not had recurrent episode of passing out. Heart rate remains in 40s at 44. He denies fever or chills feels like he can not take a deep breath. Denies cough, orthopnea or real significant dyspnea with exertion. Related Data Home Medications Medication Instructions Recorded Confirmed lisinopril 30 mg tablet 30 mg PO DAILY 11/02/23 11/02/23 methadone 10 mg tablet 80 mg PO DAILY 11/02/23 11/03/23 tamsulosin 0.4 mg capsule (Flomax) 0.4 mg PO BEDTIME 11/02/23 11/02/23 Allergies Allergy/AdvReac Type Severity Reaction Status Date / Time No Known Drug Allergies Allergy Verified 10/12/23 00:52 Patient History Social History household members: spouse Smoking Status: Never smoker alcohol intake: never Smoking Status: Never smoker Substance Use Type: does not use Exam Initial Vital Signs Initial Vital Signs: Vital Signs Temperature 98.4 F 11/05/23 15:26 Pulse Rate 48 L 11/05/23 15:26 Respiratory Rate 18 11/05/23 15:26 Blood Pressure 181/82 H 11/05/23 15:26 Pulse Oximetry 95 11/05/23 15:26 Oxygen Delivery Method Room Air 11/05/23 15:26 GENERAL: Alert pleasant well-appearing 63-year-old male and in no acute distress. HEENT: Head atraumatic,EOMI, pupils reactive, face symmetric, moist mucous membranes CARDIOVASCULAR: Regular rate and rhythm without murmurs, rubs or gallops. RESPIRATORY: Breath sounds equal bilaterally, no wheezes rales or rhonchi. ABDOMEN: Soft, nontender. Normoactive bowel sounds all 4 quadrants. No guarding or rebound. EXTREMITIES: Normal range of motion, no clubbing or edema. Neurovascularly intact NEUROLOGICAL: Alert and oriented x4.Normal gait and speech. Cranial nerves II through XII grossly intact. Intervention Manager strength equal bilaterally able to lift leg SKIN: Warm, dry, no laceration, no petechiae, no rashes or lesions. Course Orders Ordered: ED Orders 11/05/23 15:26 XR chest 1V Stat EKG-12 Lead Stat 11/05/23 15:33 Complete Blood Count AUTO DIFF Stat Comprehensive Metabolic Panel Stat Magnesium Stat PTT Partial Thromboplastin Jose Stat Prothrombin Time INR Stat Troponin & CK Cardiac Panel Stat Vital Signs Vital signs: Vital Signs - 8 hr 11/05/23 15:26 11/05/23 15:48 11/05/23 15:49 Temperature 98.4 F Pulse Rate 48 L 48 L 47 L Respiratory Rate 18 20 22 Blood Pressure 181/82 H Pulse Oximetry 95 94 94 Oxygen Delivery Method Room Air 11/05/23 15:49 11/05/23 16:00 11/05/23 16:00 Temperature Pulse Rate 46 L Respiratory Rate 22 Blood Pressure 162/77 H 142/78 H Pulse Oximetry 95 Oxygen Delivery Method 11/05/23 16:30 11/05/23 16:30 11/05/23 17:00 Temperature Pulse Rate 43 L 44 L Respiratory Rate 16 18 Blood Pressure 123/70 Pulse Oximetry 95 95 Oxygen Delivery Method 11/05/23 17:00 11/05/23 17:30 11/05/23 17:30 Temperature Pulse Rate 40 L Respiratory Rate 15 Blood Pressure 137/75 116/68 Pulse Oximetry 99 Oxygen Delivery Method MDM - Chest Pain Lab Data 11/05/23 15:33 11/05/23 15:33 Labs: Lab Results 11/05/23 Range/Units 15:33 WBC 6.6 (4.5-11.0) X10^3/uL RBC 5.69 (4.5-5.9) X10^6/uL Hgb 15.5 (13.5-17.5) g/dL Hct 46.6 (41-53) % MCV 81.9 (80-100) fL MCH 27.2 (26-34) PG MCHC 33.2 (30-36) % RDW 13.6 (11.6-14.8) % Plt Count 201 (150-400) X10^3/uL Neut % (Auto) 76.6 H (50-75) % Lymph % (Auto) 14.2 L (25-40) % [place] % (Auto) 5.2 (3-14) % Eos % (Auto) 3.5 (2-4) % Baso % (Auto) 0.5 (0-2) % Neut # (Auto) 5000 (5103-2194) /uL Lymph # (Auto) 900 L (4190-6519) /uL [place] # (Auto) 300 (0-900) /uL Eos # (Auto) 200 (0-450) /uL Baso # (Auto) 0 (0-100) /uL PT 10.5 (9.4-12.5) SECONDS INR 0.9 (0.9-1.3) APTT 40 H (25.1-36.5) SECONDS Sodium 137 (137-145) mmol/L Potassium 4.4 (3.4-5.1) mmol/L Chloride 104 (98-107) mmol/L Carbon Dioxide 29 (22-32) mmol/L BUN 18 (9-20) mg/dL Creatinine 1.08 (0.66-1.25) mg/dL Estimated GFR > 60 (>60) mL/min BUN/Creatinine Ratio 16.7 (6-22) Glucose 102 (80-110) mg/dL Calcium 9.0 (8.4-10.2) mg/dL Magnesium 2.3 (1.6-2.3) mg/dL Total Bilirubin 0.8 (0.2-1.3) mg/dL AST 26 (17-59) IU/L ALT 24 (<50) IU/L Alkaline Phosphatase 90 (38-126) U/L Total Creatine Kinase 86 (55-170) U/L Troponin I < 0.012 (0.01-0.034) ng/mL Total Protein 7.3 (6.3-8.2) g/dL Albumin 4.5 (3.5-5.0) g/dL Globulin 2.8 (1.7-4.1) g/dL Albumin/Globulin Ratio 1.6 (1.0-2.8) Imaging Data Chest x-ray: Radiologist's Impression: PROCEDURE: XR CHEST 1V INDICATIONS: chest pain TECHNIQUE: One view of the chest was acquired. COMPARISON: [facility], CR, XR CHEST 1V, 11/02/2023, 19:52. FINDINGS: Surgical changes and devices: None. Lungs and pleura: Lungs are clear. No pleural effusions or pneumothorax. Mediastinum: Mediastinal contours appear normal. Heart size is normal. Bones and chest wall: No suspicious bony lesions. Overlying soft tissues appear unremarkable. IMPRESSION: No acute cardiopulmonary abnormality is seen. Dictated by: Ramiro Garcia M.D. on 11/05/2023 at 15:15 ECG Data Attestation: I personally reviewed and interpreted this ECG as follows: Prior ECG tracings: available for review Interpretation: Sinus bradycardia rate 47 OK interval 182 QRS 92 QTC 403 no AV lo block no acute ischemic changes similar to previous EKGs MDM Narrative Medical decision making narrative: Patient 63-year-old male presents today with some shortness of breath and feels like he might pass out although he has not. He has known bradycardia he has a ZIO patch on in his recently admitted for a syncopal episode likely related to his bradycardia. Unclear exactly what is causing his bradycardia he has not on medications although he does take methadone which can cause some bradycardia. Patient is a in the process of possibly weaning off his methadone but has not really started yet. Today he did not pass out he has no focal deficits. He has not having any sort of chest pain. Blood work reviewed: No leukocytosis anemia IRINA electrolyte abnormality and a negative troponin. Chest x-ray has been reviewed no acute cardiopulmonary process EKG has been reviewed with out AV block third-degree block or ischemic changes [id number] cardiology on-call at [facility], updated on patient's symptoms, states that patient may actually require pacemaker however not emergently. We will definitely follow up with patient this week in clinic and tried to get an urgent evaluation. Patient updated on cardiology recommendations may require pacemaker he has not had a syncopal episode today he did have 1 this week. I suspect that this is secondary to his bradycardia. His heart rate is 42-46. However it has been this way for a number of days and documented. He has got a ZIO patch on and it was when he had a syncopal episode. Needs to follow up with Cardiology. I have discussed with him that if he should have recurrent syncopal episode or any worsening symptoms and he must return to the ED for evaluation. Discharge Plan Departure Patient Disposition: Home Clinical Impression: Symptomatic bradycardia Instructions: Bradycardia Activity Restrictions/Additional Instructions: *You have been diagnosed with bradycardia *What to do: At this time you need to be evaluated by Cardiology. You may require a pacemaker. Do not smoke cannabis Methadone it may or may not be causing her heart rate to be a little bit slower. *Continue to take medications as directed *Follow up with your primary care provider in 2-3 days or call [phone] Please call your flame brazing machine operator tomorrow to make sure that you have an appointment with them this week *Return to ER if you should have recurrent episode of passing out chest pain dizziness no Cipro or any new, worsening or concerning symptoms Prescriptions: No Action methadone 10 mg Tablet 80 mg PO DAILY tamsulosin [Flomax] 0.4 mg Capsule 0.4 mg PO BEDTIME lisinopril 30 mg Tablet 30 mg PO DAILY Referrals: Miscellaneous,Doctor, [Primary Care Provider] - Stand Alone Forms: Patient Portal/API
[2023-11-05 16:06] LABS: Troponin I < 0.012 ng/mL (0.01-0.034)
--- NOTE | 2023-11-05 16:31 | PC.NURSE ---
pt states he was here a few days ago because he had a syncopal episode that lasted a couple of hours? he was on the phone with his and then the phone rang and he asked her why she hung up on him. she told him she had been trying to get ahold of him for 2 hours. he has seen a environmental technician and currently has zio patch on currently. today he has some blurry vision and continued SOB and severe anxiety. he was worried enough he came to ER
== END 2023-11-05 18:08 | disposition home or self-care (01) ==
PROVIDERS: Emergency Provider Emergency Medicine
DX: R00.1 Bradycardia, unspecified (principal); R07.9 Chest pain, unspecified; R55 Syncope and collapse
CPT/HCPCS: 36415; 71045; 80053; 82550; 83735; 84484; 85025; 85610; 85730; 93005; 99283; 99284

== ENCOUNTER 2023-11-07 16:16 | Observation (INO) | payer MEDICARE, BC, MEDICAID, SELFPAY ==
[2023-11-03 01:41] VITALS: BMI 32.5
[2023-11-07] VITALS (44 sets, daily range): BP systolic 98–166; BP diastolic 52–100; PULSE 42–70; RESP 13–22; TEMP 36.2–36.8; O2SAT 94–99; BMI 33.2
--- NOTE | 2023-11-07 16:19 | ED_ITS ---
HPI - General Adult <Olga Lyman MD - Last Filed: 11/22/23 23:42> General Chief complaint: Chest Pain Stated complaint: chest pain/sweating/weak legs Time Seen by Provider: 11/07/23 16:19 History of Present Illness HPI narrative: 63-year-old gentleman with his 3rd visit now to the emergency department with chest pain and/or bradycardia. 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 He was seen in the emergency department on the of this month with severe anterior chest pain after doing some work in his shop. Workup at that time included CTs of the head CTA of the chest admission for syncope. Echocardiogram time of admission was unremarkable with no evidence of acute coronary syndrome. He was seen again in the emergency department on November 04 for general malaise no recurrent episodes of syncope, was found to be bradycardic with a heart rate sinus rhythm at 47. Only medication that could interfere with heart rate is methadone workup again was unremarkable. Throughout both of these visits he has had a Zio patch in place. Today he notes that he is having chest pressure and tightness that he rates as a 7/10 at home while I was working in his garage and currently at 6/10. He has been increasingly fatigued, complaining of central to right-sided chest pressure diaphoresis tremulous weakness. He had 30 minutes of nausea that has since resolved Related Data Home Medications Medication Instructions Recorded Confirmed lisinopril 30 mg tablet 30 mg PO BEDTIME 11/02/23 11/07/23 methadone 10 mg tablet 75 mg PO DAILY 11/02/23 11/07/23 tamsulosin 0.4 mg capsule (Flomax) 0.4 mg PO BEDTIME 11/02/23 11/07/23 Allergies Allergy/AdvReac Type Severity Reaction Status Date / Time No Known Drug Allergies Allergy Verified 11/20/23 18:21 Review of Systems <Olga Lyman MD - Last Filed: 11/22/23 23:42> Review of Systems Narrative: Pertinent positive and negative findings as per HPI Patient History <Olga Lyman MD - Last Filed: 11/22/23 23:42> Medical History Methadone maintenance therapy patient Hypertension BPH (benign prostatic hyperplasia) Chronic back pain Social History household members: spouse Smoking Status: Never smoker alcohol intake: never Smoking Status: Never smoker Substance Use Type: does not use Exam <Olga Lyman MD - Last Filed: 11/22/23 23:42> Initial Vital Signs Initial Vital Signs: Vital Signs Pulse Rate 60 11/07/23 16:22 Blood Pressure 166/86 H 11/07/23 16:22 General: Healthy appearing, in no acute distress. Able to give a complete and coherent history. Well-nourished well-developed HEENT: Moist mucous membranes, normal sclera with reactive pupils, Neck: No JVD, supple Respiratory: Lungs are clear to auscultation, no wheezing no rales no rhonchi. Full and symmetrical air movement Cardiac: Regular rate and rhythm no murmurs no bruits, does not have reproducible chest pain on palpation Abdomen: Soft, nontender, good bowel tones, no flank pain Skin: Warm and dry, no rashes Neurologic: Grossly neurologically intact with no obvious asymmetries or abnormalities Extremities: No trauma, well perfused Psych: Cooperative, appropriate insight and affect <Heri Isaacs DO - Last Filed: 11/07/23 21:01> Initial Vital Signs Initial Vital Signs: Vital Signs Pulse Rate 60 11/07/23 16:22 Blood Pressure 166/86 H 11/07/23 16:22 Course <Olga Lyman MD - Last Filed: 11/22/23 23:42> Orders Ordered: Discontinued Medications Acetaminophen (Acetaminophen 325 Mg Tablet) 650 mg PO Q6H PRN PRN Reason: Fever/Mild Pain (1-3) Aspirin (Aspirin 81 Mg Chew Tab) 324 mg PO NOW ONE Stop: 11/07/23 16:26 Last Admin: 11/07/23 16:31 Dose: 324 mg Documented By: ENEDELIA Aspirin (Aspirin Ec 81 Mg Tablet) 81 mg PO DAILY [facility] Last Admin: 11/08/23 08:27 Dose: 81 mg Documented By: DIEGO Enoxaparin Sodium (Enoxaparin 40 Mg/0.4 Ml Syringe) 40 mg SUBCUT DAILY [facility] Last Admin: 11/08/23 08:28 Dose: 40 mg Documented By: DIEGO Fish Oil (Fish Oil 1,000 Mg Capsule) 1,000 mg PO DAILY [facility] Last Admin: 11/08/23 08:27 Dose: 1,000 mg Documented By: DIEGO Sodium Chloride (Normal Saline 0.9%) 500 mls @ 1,000 mls/hr IV BOLUS ONE Stop: 11/07/23 17:23 Last Infusion: 11/07/23 17:35 Dose: Infused Documented By: Admin: 11/07/23 16:55 Dose: 1,000 mls/hr Documented By: ENEDELIA Lisinopril (Lisinopril 10 Mg Tablet) 30 mg PO DAILY [facility] Last Admin: 11/08/23 08:23 Dose: 30 mg Documented By: DIEGO Melatonin (Melatonin 3 Mg Tablet) 6 mg PO BEDTIME PRN PRN Reason: insomnia Methadone HCl (Methadone 10 Mg Tablet) 80 mg PO DAILY [facility] Last Admin: 11/08/23 08:27 Dose: 80 mg Documented By: DIEGO Morphine Sulfate (Morphine 4 Mg/Ml Inj) 3 mg IV Q2HR [facility] Last Admin: 11/07/23 23:21 Dose: Not Given Documented By: SH Morphine Sulfate (Morphine 4 Mg/Ml Inj) 3 mg IV Q2HR PRN PRN Reason: chest pain Nitroglycerin (Nitroglycerin 0.4 Mg Sl Tab) 0.4 mg SL [id number] PRN PRN Reason: Chest Pain Last Admin: 11/07/23 16:52 Dose: 0.4 mg Documented By: Admin: 11/07/23 16:36 Dose: 0.4 mg Documented By: ENEDELIA Nitroglycerin (Nitroglycerin 0.4 Mg Sl Tab) 0.4 mg SL [id number] PRN PRN Reason: Chest Pain Ondansetron HCl (Ondansetron 4 Mg/2 Ml Inj) 4 mg IV NOW ONE Stop: 11/07/23 16:29 Last Admin: 11/07/23 16:34 Dose: 4 mg Documented By: ENEDELIA Tamsulosin HCl (Tamsulosin 0.4 Mg Capsule) 0.4 mg PO BEDTIME [facility] Vital Signs Vital signs: Vital Signs - 8 hr 11/07/23 16:22 11/07/23 16:22 11/07/23 16:23 Temperature 97.2 F L Pulse Rate 60 59 L Respiratory Rate 18 Blood Pressure 166/86 H 166/86 H Pulse Oximetry 94 Oxygen Delivery Method Room Air 11/07/23 16:30 11/07/23 16:36 11/07/23 16:36 Temperature Pulse Rate 57 L 66 Respiratory Rate Blood Pressure 148/56 H 148/56 H Pulse Oximetry Oxygen Delivery Method 11/07/23 16:36 11/07/23 16:42 11/07/23 16:43 Temperature Pulse Rate 65 70 Respiratory Rate 21 21 Blood Pressure 116/57 L Pulse Oximetry 97 97 Oxygen Delivery Method 11/07/23 16:43 11/07/23 16:46 11/07/23 16:46 Temperature Pulse Rate 69 64 Respiratory Rate 22 19 Blood Pressure 114/59 L Pulse Oximetry 96 94 Oxygen Delivery Method Room Air 11/07/23 16:52 11/07/23 16:59 11/07/23 16:59 Temperature Pulse Rate 58 L 64 Respiratory Rate 17 Blood Pressure 114/59 L 116/56 L Pulse Oximetry 94 Oxygen Delivery Method 11/07/23 17:00 11/07/23 17:00 11/07/23 17:04 Temperature Pulse Rate 65 59 L Respiratory Rate 17 Blood Pressure 111/52 L Pulse Oximetry 94 95 Oxygen Delivery Method 11/07/23 17:04 11/07/23 17:10 11/07/23 17:10 Temperature Pulse Rate 55 L Respiratory Rate Blood Pressure 117/56 L 98/70 Pulse Oximetry 96 Oxygen Delivery Method 11/07/23 17:20 11/07/23 17:20 11/07/23 17:30 Temperature Pulse Rate 53 L Respiratory Rate 17 Blood Pressure 101/60 98/55 L Pulse Oximetry 97 Oxygen Delivery Method Room Air 11/07/23 17:30 11/07/23 17:38 11/07/23 17:38 Temperature Pulse Rate 50 L 51 L Respiratory Rate 17 Blood Pressure 107/58 L Pulse Oximetry 96 97 Oxygen Delivery Method 11/07/23 17:41 11/07/23 17:41 11/07/23 17:50 Temperature Pulse Rate 50 L Respiratory Rate 13 Blood Pressure 108/58 L 106/58 L Pulse Oximetry 97 Oxygen Delivery Method 11/07/23 17:50 11/07/23 18:00 11/07/23 18:00 Temperature Pulse Rate 50 L 50 L Respiratory Rate 16 19 Blood Pressure 99/57 L Pulse Oximetry 97 97 Oxygen Delivery Method 11/07/23 18:10 11/07/23 18:10 11/07/23 18:20 Temperature Pulse Rate 51 L 52 L Respiratory Rate 18 15 Blood Pressure 102/55 L Pulse Oximetry 97 97 Oxygen Delivery Method Room Air 11/07/23 18:20 11/07/23 18:30 11/07/23 18:30 Temperature Pulse Rate 49 L Respiratory Rate 15 Blood Pressure 105/58 L 105/56 L Pulse Oximetry 98 Oxygen Delivery Method 11/07/23 18:40 11/07/23 18:40 11/07/23 18:50 Temperature Pulse Rate 48 L Respiratory Rate 18 Blood Pressure 111/58 L 125/100 H Pulse Oximetry 99 Oxygen Delivery Method 11/07/23 18:50 11/07/23 19:00 11/07/23 19:00 Temperature Pulse Rate 47 L 46 L Respiratory Rate 21 13 Blood Pressure 111/93 H Pulse Oximetry 99 98 Oxygen Delivery Method 11/07/23 19:11 11/07/23 19:20 11/07/23 19:20 Temperature Pulse Rate 45 L Respiratory Rate 15 Blood Pressure 116/58 L 115/61 Pulse Oximetry 98 Oxygen Delivery Method 11/07/23 19:30 11/07/23 19:30 11/07/23 19:40 Temperature Pulse Rate 44 L Respiratory Rate 13 Blood Pressure 112/63 113/64 Pulse Oximetry 97 Oxygen Delivery Method 11/07/23 19:40 11/07/23 19:50 11/07/23 20:00 Temperature Pulse Rate 43 L 43 L Respiratory Rate 14 14 Blood Pressure 115/63 Pulse Oximetry 98 98 Oxygen Delivery Method Room Air 11/07/23 20:00 11/07/23 20:10 11/07/23 20:10 Temperature Pulse Rate 42 L Respiratory Rate 19 Blood Pressure 113/61 120/63 Pulse Oximetry 99 Oxygen Delivery Method 11/07/23 20:20 11/07/23 20:30 11/07/23 20:30 Temperature Pulse Rate 42 L Respiratory Rate 14 Blood Pressure 113/60 119/64 Pulse Oximetry 96 Oxygen Delivery Method 11/07/23 20:40 11/07/23 20:40 Temperature Pulse Rate 42 L Respiratory Rate 16 Blood Pressure 120/61 Pulse Oximetry 96 Oxygen Delivery Method Room Air <Heri Isaacs DO - Last Filed: 11/07/23 21:01> Orders Ordered: Discontinued Medications Acetaminophen (Acetaminophen 325 Mg Tablet) 650 mg PO Q6H PRN PRN Reason: Fever/Mild Pain (1-3) Aspirin (Aspirin 81 Mg Chew Tab) 324 mg PO NOW ONE Stop: 11/07/23 16:26 Last Admin: 11/07/23 16:31 Dose: 324 mg Documented By: ENEDELIA Aspirin (Aspirin Ec 81 Mg Tablet) 81 mg PO DAILY [facility] Last Admin: 11/08/23 08:27 Dose: 81 mg Documented By: DIEGO Enoxaparin Sodium (Enoxaparin 40 Mg/0.4 Ml Syringe) 40 mg SUBCUT DAILY [facility] Last Admin: 11/08/23 08:28 Dose: 40 mg Documented By: DIEGO Fish Oil (Fish Oil 1,000 Mg Capsule) 1,000 mg PO DAILY [facility] Last Admin: 11/08/23 08:27 Dose: 1,000 mg Documented By: DIEGO Sodium Chloride (Normal Saline 0.9%) 500 mls @ 1,000 mls/hr IV BOLUS ONE Stop: 11/07/23 17:23 Last Infusion: 11/07/23 17:35 Dose: Infused Documented By: Admin: 11/07/23 16:55 Dose: 1,000 mls/hr Documented By: ENEDELIA Lisinopril (Lisinopril 10 Mg Tablet) 30 mg PO DAILY [facility] Last Admin: 11/08/23 08:23 Dose: 30 mg Documented By: DIEGO Melatonin (Melatonin 3 Mg Tablet) 6 mg PO BEDTIME PRN PRN Reason: insomnia Methadone HCl (Methadone 10 Mg Tablet) 80 mg PO DAILY [facility] Last Admin: 11/08/23 08:27 Dose: 80 mg Documented By: DIEGO Morphine Sulfate (Morphine 4 Mg/Ml Inj) 3 mg IV Q2HR [facility] Last Admin: 11/07/23 23:21 Dose: Not Given Documented By: Morphine Sulfate (Morphine 4 Mg/Ml Inj) 3 mg IV Q2HR PRN PRN Reason: chest pain Nitroglycerin (Nitroglycerin 0.4 Mg Sl Tab) 0.4 mg SL [id number] PRN PRN Reason: Chest Pain Last Admin: 11/07/23 16:52 Dose: 0.4 mg Documented By: Admin: 11/07/23 16:36 Dose: 0.4 mg Documented By: ENEDELIA Nitroglycerin (Nitroglycerin 0.4 Mg Sl Tab) 0.4 mg SL [id number] PRN PRN Reason: Chest Pain Ondansetron HCl (Ondansetron 4 Mg/2 Ml Inj) 4 mg IV NOW ONE Stop: 11/07/23 16:29 Last Admin: 11/07/23 16:34 Dose: 4 mg Documented By: ENEDELIA Tamsulosin HCl (Tamsulosin 0.4 Mg Capsule) 0.4 mg PO BEDTIME ALON Vital Signs Vital signs: Vital Signs - 8 hr 11/07/23 16:22 11/07/23 16:22 11/07/23 16:23 Temperature 97.2 F L Pulse Rate 60 59 L Respiratory Rate 18 Blood Pressure 166/86 H 166/86 H Pulse Oximetry 94 Oxygen Delivery Method Room Air 11/07/23 16:30 11/07/23 16:36 11/07/23 16:36 Temperature Pulse Rate 57 L 66 Respiratory Rate Blood Pressure 148/56 H 148/56 H Pulse Oximetry Oxygen Delivery Method 11/07/23 16:36 11/07/23 16:42 11/07/23 16:43 Temperature Pulse Rate 65 70 Respiratory Rate 21 21 Blood Pressure 116/57 L Pulse Oximetry 97 97 Oxygen Delivery Method 11/07/23 16:43 11/07/23 16:46 11/07/23 16:46 Temperature Pulse Rate 69 64 Respiratory Rate 22 19 Blood Pressure 114/59 L Pulse Oximetry 96 94 Oxygen Delivery Method Room Air 11/07/23 16:52 11/07/23 16:59 11/07/23 16:59 Temperature Pulse Rate 58 L 64 Respiratory Rate 17 Blood Pressure 114/59 L 116/56 L Pulse Oximetry 94 Oxygen Delivery Method 11/07/23 17:00 11/07/23 17:00 11/07/23 17:04 Temperature Pulse Rate 65 59 L Respiratory Rate 17 Blood Pressure 111/52 L Pulse Oximetry 94 95 Oxygen Delivery Method 11/07/23 17:04 11/07/23 17:10 11/07/23 17:10 Temperature Pulse Rate 55 L Respiratory Rate Blood Pressure 117/56 L 98/70 Pulse Oximetry 96 Oxygen Delivery Method 11/07/23 17:20 11/07/23 17:20 11/07/23 17:30 Temperature Pulse Rate 53 L Respiratory Rate 17 Blood Pressure 101/60 98/55 L Pulse Oximetry 97 Oxygen Delivery Method Room Air 11/07/23 17:30 11/07/23 17:38 11/07/23 17:38 Temperature Pulse Rate 50 L 51 L Respiratory Rate 17 Blood Pressure 107/58 L Pulse Oximetry 96 97 Oxygen Delivery Method 11/07/23 17:41 11/07/23 17:41 11/07/23 17:50 Temperature Pulse Rate 50 L Respiratory Rate 13 Blood Pressure 108/58 L 106/58 L Pulse Oximetry 97 Oxygen Delivery Method 11/07/23 17:50 11/07/23 18:00 11/07/23 18:00 Temperature Pulse Rate 50 L 50 L Respiratory Rate 16 19 Blood Pressure 99/57 L Pulse Oximetry 97 97 Oxygen Delivery Method 11/07/23 18:10 11/07/23 18:10 11/07/23 18:20 Temperature Pulse Rate 51 L 52 L Respiratory Rate 18 15 Blood Pressure 102/55 L Pulse Oximetry 97 97 Oxygen Delivery Method Room Air 11/07/23 18:20 11/07/23 18:30 11/07/23 18:30 Temperature Pulse Rate 49 L Respiratory Rate 15 Blood Pressure 105/58 L 105/56 L Pulse Oximetry 98 Oxygen Delivery Method 11/07/23 18:40 11/07/23 18:40 11/07/23 18:50 Temperature Pulse Rate 48 L Respiratory Rate 18 Blood Pressure 111/58 L 125/100 H Pulse Oximetry 99 Oxygen Delivery Method 11/07/23 18:50 11/07/23 19:00 11/07/23 19:00 Temperature Pulse Rate 47 L 46 L Respiratory Rate 21 13 Blood Pressure 111/93 H Pulse Oximetry 99 98 Oxygen Delivery Method 11/07/23 19:11 11/07/23 19:20 11/07/23 19:20 Temperature Pulse Rate 45 L Respiratory Rate 15 Blood Pressure 116/58 L 115/61 Pulse Oximetry 98 Oxygen Delivery Method 11/07/23 19:30 11/07/23 19:30 11/07/23 19:40 Temperature Pulse Rate 44 L Respiratory Rate 13 Blood Pressure 112/63 113/64 Pulse Oximetry 97 Oxygen Delivery Method 11/07/23 19:40 11/07/23 19:50 11/07/23 20:00 Temperature Pulse Rate 43 L 43 L Respiratory Rate 14 14 Blood Pressure 115/63 Pulse Oximetry 98 98 Oxygen Delivery Method Room Air 11/07/23 20:00 11/07/23 20:10 11/07/23 20:10 Temperature Pulse Rate 42 L Respiratory Rate 19 Blood Pressure 113/61 120/63 Pulse Oximetry 99 Oxygen Delivery Method 11/07/23 20:20 11/07/23 20:30 11/07/23 20:30 Temperature Pulse Rate 42 L Respiratory Rate 14 Blood Pressure 113/60 119/64 Pulse Oximetry 96 Oxygen Delivery Method 11/07/23 20:40 11/07/23 20:40 Temperature Pulse Rate 42 L Respiratory Rate 16 Blood Pressure 120/61 Pulse Oximetry 96 Oxygen Delivery Method Room Air Medical Decision Making <Olga Lyman MD - Last Filed: 11/22/23 23:42> Lab Data 11/08/23 04:59 11/08/23 04:59 Labs: Lab Results 11/07/23 11/07/23 Range/Units 16:26 18:52 WBC 7.0 (4.5-11.0) X10^3/uL RBC 5.80 (4.5-5.9) X10^6/uL Hgb 16.0 (13.5-17.5) g/dL Hct 48.0 (41-53) % MCV 82.7 (80-100) fL MCH 27.6 (26-34) PG MCHC 33.3 (30-36) % RDW 13.7 (11.6-14.8) % Plt Count 197 (150-400) X10^3/uL Neut % (Auto) 68.8 (50-75) % Lymph % (Auto) 22.5 L (25-40) % [place] % (Auto) 5.7 (3-14) % Eos % (Auto) 2.1 (2-4) % Baso % (Auto) 0.9 (0-2) % Neut # (Auto) 4900 (4766-3668) /uL Lymph # (Auto) 1600 (7667-6743) /uL [place] # (Auto) 400 (0-900) /uL Eos # (Auto) 100 (0-450) /uL Baso # (Auto) 100 (0-100) /uL PT 10.8 (9.4-12.5) SECONDS INR 0.9 (0.9-1.3) APTT 44 H (25.1-36.5) SECONDS Sodium 136 L (137-145) mmol/L Potassium 4.0 (3.4-5.1) mmol/L Chloride 102 (98-107) mmol/L Carbon Dioxide 29 (22-32) mmol/L BUN 21 H (9-20) mg/dL Creatinine 1.29 H (0.66-1.25) mg/dL Estimated GFR > 60 (>60) mL/min BUN/Creatinine Ratio 16.3 (6-22) Glucose 96 (80-110) mg/dL Calcium 9.2 (8.4-10.2) mg/dL Magnesium 2.2 (1.6-2.3) mg/dL Total Bilirubin 0.9 (0.2-1.3) mg/dL AST 26 (17-59) IU/L ALT 28 (<50) IU/L Alkaline Phosphatase 99 (38-126) U/L Total Creatine Kinase 75 51 L (55-170) U/L Troponin I < 0.012 < 0.012 (0.01-0.034) ng/mL NT-Pro-B Natriuret Pep 89 (<125) pg/mL Total Protein 7.7 (6.3-8.2) g/dL Albumin 4.7 (3.5-5.0) g/dL Globulin 3.0 (1.7-4.1) g/dL Albumin/Globulin Ratio 1.6 (1.0-2.8) Lipase 35 (23-300) U/L MDM Narrative Medical decision making narrative: CC: Chest pressure and tightness Complicating co-morbidities: Hypertension, chronic back pain. This is his 3rd visit for similar complaints including an overnight hospital evaluation since November 01 Data collected from: patient Medical records reviewed: ER notes from the , discharge summary from the hospitalization in the , ER notes from the and all lab studies and echocardiogram etcetera are reviewed in detail Differential considered: Acute coronary syndrome. For similar complaints he has already had a CT angiogram to rule out pulmonary embolism or significant pulmonary abnormality. He has had an echocardiogram that does not show significant wall abnormalities. Lab work repeatedly has not had elevated troponins Exam documented above, pertinent findings include: Patient appears to be uncomfortable, left-sided chest tightness otherwise benign Lab Test results independently reviewed as above. Pertinent findings: CBC is unremarkable Coagulation studies are unremarkable Chemistries show slight bump in creatinine from 1-1.3 over 3 day period. No liver abnormalities Troponin is undetectable Lipase is reassuring Independently reviewed EKG: Sinus rhythm, leftward axis, normal intervals. No acute ischemic changes Imaging studies independently reviewed: Chest x-ray is unremarkable Consultations: Treatments: Re-evaluations: Discussion: <Heri Isaacs DO - Last Filed: 11/07/23 21:01> Medical Records Medical records reviewed: Yes I reviewed the patient's medical records. Lab Data Lab results reviewed: Yes I reviewed the patient's lab results. Labs: Lab Results 11/07/23 11/07/23 Range/Units 16:26 18:52 WBC 7.0 (4.5-11.0) X10^3/uL RBC 5.80 (4.5-5.9) X10^6/uL Hgb 16.0 (13.5-17.5) g/dL Hct 48.0 (41-53) % MCV 82.7 (80-100) fL MCH 27.6 (26-34) PG MCHC 33.3 (30-36) % RDW 13.7 (11.6-14.8) % Plt Count 197 (150-400) X10^3/uL Neut % (Auto) 68.8 (50-75) % Lymph % (Auto) 22.5 L (25-40) % [place] % (Auto) 5.7 (3-14) % Eos % (Auto) 2.1 (2-4) % Baso % (Auto) 0.9 (0-2) % Neut # (Auto) 4900 (6797-6521) /uL Lymph # (Auto) 1600 (5621-2505) /uL [place] # (Auto) 400 (0-900) /uL Eos # (Auto) 100 (0-450) /uL Baso # (Auto) 100 (0-100) /uL PT 10.8 (9.4-12.5) SECONDS INR 0.9 (0.9-1.3) APTT 44 H (25.1-36.5) SECONDS Sodium 136 L (137-145) mmol/L Potassium 4.0 (3.4-5.1) mmol/L Chloride 102 (98-107) mmol/L Carbon Dioxide 29 (22-32) mmol/L BUN 21 H (9-20) mg/dL Creatinine 1.29 H (0.66-1.25) mg/dL Estimated GFR > 60 (>60) mL/min BUN/Creatinine Ratio 16.3 (6-22) Glucose 96 (80-110) mg/dL Calcium 9.2 (8.4-10.2) mg/dL Magnesium 2.2 (1.6-2.3) mg/dL Total Bilirubin 0.9 (0.2-1.3) mg/dL AST 26 (17-59) IU/L ALT 28 (<50) IU/L Alkaline Phosphatase 99 (38-126) U/L Total Creatine Kinase 75 51 L (55-170) U/L Troponin I < 0.012 < 0.012 (0.01-0.034) ng/mL NT-Pro-B Natriuret Pep 89 (<125) pg/mL Total Protein 7.7 (6.3-8.2) g/dL Albumin 4.7 (3.5-5.0) g/dL Globulin 3.0 (1.7-4.1) g/dL Albumin/Globulin Ratio 1.6 (1.0-2.8) Lipase 35 (23-300) U/L MDM Narrative Medical decision making narrative: CC: Chest pressure and tightness Complicating co-morbidities: Hypertension, chronic back pain. This is his 3rd visit for similar complaints including an overnight hospital evaluation since November 01 Data collected from: patient Medical records reviewed: ER notes from the , discharge summary from the hospitalization in the , ER notes from the and all lab studies and echocardiogram etcetera are reviewed in detail Differential considered: Acute coronary syndrome. For similar complaints he has already had a CT angiogram to rule out pulmonary embolism or significant pulmonary abnormality. He has had an echocardiogram that does not show significant wall abnormalities. Lab work repeatedly has not had elevated troponins Exam documented above, pertinent findings include: Patient appears to be uncomfortable, left-sided chest tightness otherwise benign Lab Test results independently reviewed as above. Pertinent findings: CBC is unremarkable Coagulation studies are unremarkable Chemistries show slight bump in creatinine from 1-1.3 over 3 day period. No liver abnormalities Troponin is undetectable Lipase is reassuring Independently reviewed EKG: Sinus rhythm, leftward axis, normal intervals. No acute ischemic changes Imaging studies independently reviewed: Chest x-ray is unremarkable Consultations: Treatments: Re-evaluations: Discussion: Dr Isaacs: Received turned over. Review patient's history and physical and workup up to this point. Patient has had 2- troponins. A nonischemic EKG. He returns for the 3rd time for cardiac symptoms. He remains bradycardic which is most likely related to his methadone. He did get some improvement with the chest discomfort with nitro. When he was admitted here to the hospital a couple days ago he had an echocardiogram but no stress test. I did discuss the case with Dr. 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 Torres recommended admission to the hospital for stress test as he stated that he was going to need a stress test at some point whether that has with an admission to the hospital or as an outpatient and given this is his 3rd visit to the emergency department who recommended admission for further testing. Discussed the case with Dr. Duncan who will admit for further evaluation and treatment. Discharge Plan Departure Patient Disposition: Admitted as Observation Clinical Impression: Chest pain, Bradycardia Admit Date/Time: 11/07/23 20:56 Admit Provider: Arnav Lino
--- NOTE | 2023-11-07 16:25 | DI.RAD.S_ITS ---
PROCEDURE: XR CHEST 1V INDICATIONS: chest pain TECHNIQUE: One view of the chest was acquired. COMPARISON: [facility], CR, XR CHEST 1V, 11/05/2023, 15:54. [facility], CR, XR CHEST 1V, 11/02/2023, 19:52. FINDINGS: Surgical changes and devices: Left chest wall generator Lungs and pleura: Lungs are clear. No pleural effusions or pneumothorax. Mediastinum: Mediastinal contours appear normal. Heart size is normal. Bones and chest wall: No suspicious bony lesions. Overlying soft tissues appear unremarkable. IMPRESSION: No acute cardiopulmonary abnormality is seen. Dictated by: Martin Day M.D. on 11/07/2023 at 17:19 Approved by: Martin Day M.D. on 11/07/2023 at 17:19
[2023-11-07] MEDS: ASPIRIN 81 MG CHEW TAB 324 MG PO (16:31)
[2023-11-07] MEDS: ONDANSETRON 4 MG/2 ML INJ IV (16:34)
[2023-11-07 16:36] LABS: Add Manual Diff / Slide Review NO; Basophils Absolute Auto 100 /uL (0-100); Basophils Percent Auto 0.9 % (0-2); Eosinophils Absolute Auto 100 /uL (0-450); Eosinophils Percent Auto 2.1 % (2-4); Lymphocytes Absolute Auto 1600 /uL (1100-4500); Lymphocytes Percent Auto 22.5 % (25-40); Mean Corpuscular HGB Conc 33.3 % (30-36); Mean Corpuscular Hemoglobin 27.6 PG (26-34); Mean Corpuscular Volume 82.7 fL (80-100); Monocytes Absolute Auto 400 /uL (0-900); Monocytes Percent Auto 5.7 % (3-14); Neutrophils Absolute Auto 4900 /uL (1500-7000); Neutrophils Percent Auto 68.8 % (50-75); Platelet Count 197 X10^3/uL (150-400); Red Cell Distribution Width 13.7 % (11.6-14.8)
[2023-11-07] MEDS: NITROGLYCERIN 0.4 MG SL TAB SL ×2 (16:36→16:52)
[2023-11-07 16:41] LABS: INR 0.9 (0.9-1.3); Prothrombin Time 10.8 SECONDS (9.4-12.5)
--- NOTE | 2023-11-07 16:41 | PC.NURSE ---
Pt RIGHT hand is cold and cap refill is greater than 2 seconds with blue discoloration to his RIGHT hand fingers.
[2023-11-07 16:43] LABS: PTT Partial Thromboplastin Tim 44 SECONDS (25.1-36.5)
[2023-11-07 16:54] LABS: Alanine Aminotransferase 28 IU/L (<50); Albumin 4.7 g/dL (3.5-5.0); Albumin Globulin Ratio 1.6 (1.0-2.8); Alkaline Phosphatase 99 U/L (38-126); Aspartate Aminotransferase 26 IU/L (17-59); BUN Creatinine Ratio 16.3 (6-22); Bilirubin Total 0.9 mg/dL (0.2-1.3); Blood Urea Nitrogen 21 mg/dL (9-20); Calcium 9.2 mg/dL (8.4-10.2); Carbon Dioxide 29 mmol/L (22-32); Chloride 102 mmol/L (98-107); Creatine Kinase 75 U/L (55-170); Estimated Glomerular Filt Rate > 60 mL/min (>60); Glucose 96 mg/dL (80-110); HEMOLYSIS < 15 (0-50); Lipase 35 U/L (23-300); Magnesium 2.2 mg/dL (1.6-2.3); Sodium 136 mmol/L (137-145); Total Protein 7.7 g/dL (6.3-8.2)
[2023-11-07] MEDS: SODIUM CHLORIDE 0.9% 500 ML 1000 ML IV (16:55)
--- NOTE | 2023-11-07 16:57 | PC.NURSE ---
Pt right hand now warm after being wrapped in warm blanket. Cap refill is less than 2 seconds and color is normal.
[2023-11-07 17:05] LABS: Troponin I < 0.012 ng/mL (0.01-0.034)
[2023-11-07 18:56] LABS: NT-proBNP (BNP-Adult 18+) 89 pg/mL (<125)
[2023-11-07 19:19] LABS: Creatine Kinase 51 U/L (55-170)
[2023-11-07 19:32] LABS: Troponin I < 0.012 ng/mL (0.01-0.034)
--- NOTE | 2023-11-07 21:13 | P.HP_ITS ---
History of Present Illness History of Present Illness Date Patient Seen: 11/07/23 Time Patient Seen: 22:15 Chief complaint: chest pain/sweating/weak legs Narrative: 63 y/o with PMH of HTN, BPH, methadone treatment for chronic back pain / opiate use, who had several visits to hospital over the past few weeks with recurrent chest pain, SOB, diaphoresis. He was placed in observation last week, had negative troponins, unremarkable echocardiogram. He was bradycardic on both prior and today's visit. He had one syncopal episode that was suspected to be related to it. He established with cardiology at [facility] and has currently Zio patch. Supposed to see Dr Julio this week. ED attending, Dr Isaacs discussed patient's 3rd visit for chest pain in 1-[address] Torres, connie scratcher for [facility] cardiology who recommended placement in observation for stress test. [facility] Medical History (Updated 11/07/23 @ 21:44 by Arnav Gill MD) Methadone maintenance therapy patient Hypertension BPH (benign prostatic hyperplasia) Chronic back pain Social History household members: spouse Smoking Status: Never smoker alcohol intake: never Meds Home Medications and Allergies Home Medications Medication Instructions Recorded Confirmed Type lisinopril 30 mg tablet 30 mg PO BEDTIME 11/02/23 11/07/23 History methadone 10 mg tablet 75 mg PO DAILY 11/02/23 11/07/23 History tamsulosin 0.4 mg capsule (Flomax) 0.4 mg PO BEDTIME 11/02/23 11/07/23 History Allergies Allergy/AdvReac Type Severity Reaction Status Date / Time No Known Drug Allergies Allergy Verified 10/12/23 00:52 Review of Systems Constitutional Comments: w/o fever, chills, weight changes, malaise, generalized weakness, sweats Cardiovascular Comments: chest pain - substernal, sharp, sometimes radiates to left sometimes to right. Occasionally accompanied by diaphoresis and SOB. No aggravating or alleviating factors. Intensity anywhere from 3-9/10 Respiratory Comments: No cough, episodic SOB Gastrointestinal Comments: w/o N/V, bloody or dark stool Genitourinary Comments: some voiding hesitancy, on Flomax. Without dysuria or hematuria Musculoskeletal Comments: severe degenerative disease of LS with chronic LBP, sciatica, claudication and Rt foot drop. He had limited surgery with Dr Campbell, remains in pain. Neurologic Comments: RLE weakness - neurogenic claudication Hematologic/Lymphatic Comments: w/o easy bruising or bleeding Exam Vital Signs (past 8 hours): - 11/07/23 16:22 11/07/23 16:22 11/07/23 16:23 Temperature 97.2 F L Pulse Rate 60 59 L Respiratory Rate 18 Blood Pressure 166/86 H 166/86 H Pulse Oximetry 94 Oxygen Delivery Method Room Air 11/07/23 16:30 11/07/23 16:36 11/07/23 16:36 Temperature Pulse Rate 57 L 66 Respiratory Rate Blood Pressure 148/56 H 148/56 H Pulse Oximetry Oxygen Delivery Method 11/07/23 16:36 11/07/23 16:42 11/07/23 16:43 Temperature Pulse Rate 65 70 Respiratory Rate 21 21 Blood Pressure 116/57 L Pulse Oximetry 97 97 Oxygen Delivery Method 11/07/23 16:43 11/07/23 16:46 11/07/23 16:46 Temperature Pulse Rate 69 64 Respiratory Rate 22 19 Blood Pressure 114/59 L Pulse Oximetry 96 94 Oxygen Delivery Method Room Air 11/07/23 16:52 11/07/23 16:59 11/07/23 16:59 Temperature Pulse Rate 58 L 64 Respiratory Rate 17 Blood Pressure 114/59 L 116/56 L Pulse Oximetry 94 Oxygen Delivery Method 11/07/23 17:00 11/07/23 17:00 11/07/23 17:04 Temperature Pulse Rate 65 59 L Respiratory Rate 17 Blood Pressure 111/52 L Pulse Oximetry 94 95 Oxygen Delivery Method 11/07/23 17:04 11/07/23 17:10 11/07/23 17:10 Temperature Pulse Rate 55 L Respiratory Rate Blood Pressure 117/56 L 98/70 Pulse Oximetry 96 Oxygen Delivery Method 11/07/23 17:20 11/07/23 17:20 11/07/23 17:30 Temperature Pulse Rate 53 L Respiratory Rate 17 Blood Pressure 101/60 98/55 L Pulse Oximetry 97 Oxygen Delivery Method Room Air 11/07/23 17:30 11/07/23 17:38 11/07/23 17:38 Temperature Pulse Rate 50 L 51 L Respiratory Rate 17 Blood Pressure 107/58 L Pulse Oximetry 96 97 Oxygen Delivery Method 11/07/23 17:41 11/07/23 17:41 11/07/23 17:50 Temperature Pulse Rate 50 L Respiratory Rate 13 Blood Pressure 108/58 L 106/58 L Pulse Oximetry 97 Oxygen Delivery Method 11/07/23 17:50 11/07/23 18:00 11/07/23 18:00 Temperature Pulse Rate 50 L 50 L Respiratory Rate 16 19 Blood Pressure 99/57 L Pulse Oximetry 97 97 Oxygen Delivery Method 11/07/23 18:10 11/07/23 18:10 11/07/23 18:20 Temperature Pulse Rate 51 L 52 L Respiratory Rate 18 15 Blood Pressure 102/55 L Pulse Oximetry 97 97 Oxygen Delivery Method Room Air 11/07/23 18:20 11/07/23 18:30 11/07/23 18:30 Temperature Pulse Rate 49 L Respiratory Rate 15 Blood Pressure 105/58 L 105/56 L Pulse Oximetry 98 Oxygen Delivery Method 11/07/23 18:40 11/07/23 18:40 11/07/23 18:50 Temperature Pulse Rate 48 L Respiratory Rate 18 Blood Pressure 111/58 L 125/100 H Pulse Oximetry 99 Oxygen Delivery Method 11/07/23 18:50 11/07/23 19:00 11/07/23 19:00 Temperature Pulse Rate 47 L 46 L Respiratory Rate 21 13 Blood Pressure 111/93 H Pulse Oximetry 99 98 Oxygen Delivery Method 11/07/23 19:11 11/07/23 19:20 11/07/23 19:20 Temperature Pulse Rate 45 L Respiratory Rate 15 Blood Pressure 116/58 L 115/61 Pulse Oximetry 98 Oxygen Delivery Method 11/07/23 19:30 11/07/23 19:30 11/07/23 19:40 Temperature Pulse Rate 44 L Respiratory Rate 13 Blood Pressure 112/63 113/64 Pulse Oximetry 97 Oxygen Delivery Method 11/07/23 19:40 11/07/23 19:50 11/07/23 20:00 Temperature Pulse Rate 43 L 43 L Respiratory Rate 14 14 Blood Pressure 115/63 Pulse Oximetry 98 98 Oxygen Delivery Method Room Air 11/07/23 20:00 11/07/23 20:10 11/07/23 20:10 Temperature Pulse Rate 42 L Respiratory Rate 19 Blood Pressure 113/61 120/63 Pulse Oximetry 99 Oxygen Delivery Method 11/07/23 20:20 11/07/23 20:30 11/07/23 20:30 Temperature Pulse Rate 42 L Respiratory Rate 14 Blood Pressure 113/60 119/64 Pulse Oximetry 96 Oxygen Delivery Method 11/07/23 20:40 11/07/23 20:40 Temperature Pulse Rate 42 L Respiratory Rate 16 Blood Pressure 120/61 Pulse Oximetry 96 Oxygen Delivery Method Room Air Oxygen Delivery Method Room Air Const Other: Sitting in bed in no distress HENMT Other: normocephalic, glasses, EOMI Neck Other: supple Resp Other: normal respiratory effort Cardio Other: Sinus bradycardia - in 50-ies GI Other: w/o abdominal distension or tenderness Back/Spine/Pelvis Other: severe degenerative disease of LS with chric LBP, sciatica, claudication and Rt foot drop. He had limited surgery with Dr Campbell, remains in pain. Skin Other: no rashes Neuro Other: w/o focal weakness or numbness, headache. Extrem Other: w/lo swelling Psych Other: Lucid, appropriate mood Objective ECG Impression: NSR, w/o ischemic changes, 1st degree AV block Labs 11/07/23 16:26 11/07/23 16:26 Labs: Laboratory Results - last 24 hr 11/07/23 11/07/23 16:26 18:52 WBC 7.0 RBC 5.80 Hgb 16.0 Hct 48.0 MCV 82.7 MCH 27.6 MCHC 33.3 RDW 13.7 Plt Count 197 Neut % (Auto) 68.8 Lymph % (Auto) 22.5 L [place] % (Auto) 5.7 Eos % (Auto) 2.1 Baso % (Auto) 0.9 Neut # (Auto) 4900 Lymph # (Auto) 1600 [place] # (Auto) 400 Eos # (Auto) 100 Baso # (Auto) 100 PT 10.8 INR 0.9 APTT 44 H Sodium 136 L Potassium 4.0 Chloride 102 Carbon Dioxide 29 BUN 21 H Creatinine 1.29 H Estimated GFR > 60 BUN/Creatinine Ratio 16.3 Glucose 96 Calcium 9.2 Magnesium 2.2 Total Bilirubin 0.9 AST 26 ALT 28 Alkaline Phosphatase 99 Total Creatine Kinase 75 51 L Troponin I < 0.012 < 0.012 NT-Pro-B Natriuret Pep 89 Total Protein 7.7 Albumin 4.7 Globulin 3.0 Albumin/Globulin Ratio 1.6 Lipase 35 Assessment & Plan Assessment and plan (1) Drug-induced sinus bradycardia: Status: Acute (2) Chest pain: Status: Acute (3) Hypertriglyceridemia: Status: Acute (4) Hypertension: Status: Acute (5) BPH (benign prostatic hyperplasia): Status: Acute (6) Methadone maintenance therapy patient: Status: Acute (7) S/P spinal surgery: Status: Acute Assessment & Plan narrative: 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 - stress test - started ASA Methadone Maintenance / Chronic LBP with sciatica - 80 mg / day for several months, prescribed in [place], recently moved to [place] - possibly causing bradycardia - he used to be on Oxycontin and Dilaudid HTN - Lisinopril 30 mg daily Hypertryglicidemia - > 300, not diabetic, LDL, HDL WNR - started fish oil BPH - Flomax DVT prophylaxis - Lovenox Time Spent With Patient Time with patient: 50 to 69 minutes with 50% spent counseling/coordinating care Quality MIPS - Admit I confirm the patient?s Advance Care Plan is present, Code status is documented, Surrogate decision maker is in patient?s record [If Yes, STOP here]: Yes MIPS - Meds 'Current medications' to include all prescriptions, [id number] products, herbals, cannabis/cannabidiol products, and vitamin/mineral/dietary (nutritional) supplements. I have utilized all available resources to obtain, update, or review the patient?s current medications. [If Yes, STOP here]: Yes
[2023-11-08] VITALS: BP 130/74; PULSE 53; RESP 18; TEMP 37.1; O2SAT 94
[2023-11-08 04:00] VITALS: BP 127/70; PULSE 47; RESP 16; TEMP 36.4; O2SAT 96
[2023-11-08 05:46] LABS: Add Manual Diff / Slide Review NO; Basophils Absolute Auto 0 /uL (0-100); Basophils Percent Auto 0.4 % (0-2); Eosinophils Absolute Auto 200 /uL (0-450); Eosinophils Percent Auto 3.6 % (2-4); Hematocrit 43.1 % (41-53); Hemoglobin 14.4 g/dL (13.5-17.5); Lymphocytes Absolute Auto 1200 /uL (1100-4500); Lymphocytes Percent Auto 22.1 % (25-40); Mean Corpuscular HGB Conc 33.3 % (30-36); Mean Corpuscular Hemoglobin 27.5 PG (26-34); Mean Corpuscular Volume 82.5 fL (80-100); Monocytes Absolute Auto 400 /uL (0-900); Monocytes Percent Auto 6.7 % (3-14); Neutrophils Absolute Auto 3800 /uL (1500-7000); Neutrophils Percent Auto 67.2 % (50-75); Platelet Count 180 X10^3/uL (150-400); Red Blood Cell Count 5.23 X10^6/uL (4.5-5.9); Red Cell Distribution Width 13.8 % (11.6-14.8); White Blood Cell Count 5.6 X10^3/uL (4.5-11.0)
--- NOTE | 2023-11-08 05:53 | PC.ADMIT ---
[email or web address] Admission Note: Patient admitted to AC unit at 22:00. Alert and oriented x 4, ambulating independently. NPO @ 04:00. Oriented to room and call light, call light within reach. The patient,Mahendra Norwood,63 y/o, was given written information regarding hospital policies, unit procedures and contact persons. Patient's smoking status: Never smoker. Vital Signs - 8 hr 11/07/23 22:00 11/08/23 00:00 11/08/23 04:00 Temperature 98.2 F 98.8 F 97.6 F Pulse Rate 44 L 53 L 47 L Respiratory Rate 17 18 16 Blood Pressure 122/79 130/74 127/70 Pulse Oximetry 96 94 96 Oxygen Flow Rate 0 0 0
[2023-11-08 05:57] LABS: BUN Creatinine Ratio 16.5 (6-22); Blood Urea Nitrogen 20 mg/dL (9-20); Calcium 8.2 mg/dL (8.4-10.2); Carbon Dioxide 28 mmol/L (22-32); Chloride 104 mmol/L (98-107); Estimated Glomerular Filt Rate > 60 mL/min (>60); Glucose 103 mg/dL (80-110); HEMOLYSIS < 15 (0-50); Potassium 4.1 mmol/L (3.4-5.1); Sodium 135 mmol/L (137-145)
[2023-11-08 08:00] VITALS: BP 111/56; PULSE 50; RESP 20; TEMP 37.1; O2SAT 94; O2SAT 99
[2023-11-08 08:23] VITALS: BP 111/56
[2023-11-08] MEDS: lisinopriL 10 MG TABLET 30 MG PO (08:23)
[2023-11-08] MEDS: FISH OIL 1,000 MG CAPSULE 1000 MG PO (08:27)
[2023-11-08] MEDS: ASPIRIN EC 81 MG TABLET PO (08:27)
[2023-11-08] MEDS: METHADONE 10 MG TABLET 80 MG PO (08:27)
[2023-11-08] MEDS: ENOXAPARIN 40 MG/0.4 ML SYRINGE SUBCUT (08:28)
--- NOTE | 2023-11-08 10:56 | CM.DANOTE ---
DCP Assessment Note Pt is a 63yo M here following chest pain. Pt had a recent admission 11/03/23 and two recent ED visits, 10/11/23 and 11/05/23, for similar reasons. PCP None listed. SPRING BENDER gave him info card for arranging SOC with provider here. Payer out of state [employer] and [facility]. SPRING BENDER reviewed EMR. Per hospitalist in morning rounds, stress test pending, potential dc today pending results. SPRING BENDER met with pt in room. Pt reports is active/indep/drives at baseline. Pt lives with spouse in [place]. Pt denies any CM needs at this time. Pt hopeful to dc by 2pm. SPRING BENDER updated RN/provider on hopeful dc by 2pm. Plan: Anticipate home later today, denies any CM need. No barriers to safe dc home identified at this time. Transport with friend in POV. CM team will continue to follow as needed. RAGHAV Sosa Discharge Planning/Care Management CM Discharge Assessment Start: 11/08/23 10:55 Freq: Status: Active Protocol: Document 11/08/23 10:55 (Rec: 11/08/23 10:56 [email or web address]) Discharge Planning Assessment Assigned Lumber Carrier Operator RAGHAV Ge DPOA/Assigned Designee Name roby Golden Contact Information [phone] Advance Directives? No History Provided By Patient,Medical Record Prior Living Arrangements House Household Members spouse Type of transporation used prior to Drives own vehicle admit Independent with ADL's Yes Is patient alert and oriented? Yes Barriers to Discharge No Comment Home w/spouse, Close outpatient follow up. No needs from this CM team. Discharge Plan Home Transportation Arrangement Family Referrals Initiated None needed Whiteboard Updated in Patient Room with Yes name and ext. # of Lumber Carrier Operator Review Status In Process Please Provide Date Initial DC 11/08/23 Assessment Was Performed Next Review Type Continued Stay Review
--- NOTE | 2023-11-08 11:15 | PC.NURSE ---
Pt to Nuclear Medicine for Stress test.
--- NOTE | 2023-11-08 12:53 | PM.DS.1 ---
History of Present Illness History of Present Illness Chief complaint: chest pain/sweating/weak legs Narrative: 63 y/o with PMH of HTN, BPH, methadone treatment for chronic back pain / opiate use, who had several visits to hospital over the past few weeks with recurrent chest pain, SOB, diaphoresis. He was placed in observation last week, had negative troponins, unremarkable echocardiogram. He was bradycardic on both prior and today's visit. He had one syncopal episode that was suspected to be related to it. He established with cardiology at [facility] and has currently Zio patch. Supposed to see Dr Julio this week. ED attending, Dr Isaacs discussed patient's 3rd visit for chest pain in 1-[address] Torres, commercial production editor for [facility] cardiology who recommended placement in observation for stress test. 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 Underwent nuclear stress test which showed no ischemic changes and was therefore a low-risk study. Already had normal outpatient echo. Will f/up with stitcher standard machine Dr. Julio as outpatient. Exam Vital Signs (past 8 hours): - 11/08/23 08:00 11/08/23 08:00 11/08/23 08:23 Temperature 98.7 F 98.7 F Pulse Rate 50 L 50 L Respiratory Rate 20 20 Blood Pressure 111/56 L 111/56 L 111/56 L Pulse Oximetry 94 99 Oxygen Flow Rate 0 Oxygen Delivery Method Room Air Oxygen Flow Rate 0 Const Other: Sitting in bed in no distress HENMT Other: normocephalic, glasses, EOMI Neck Other: supple Resp Other: normal respiratory effort Cardio Other: Sinus bradycardia - in 50-ies GI Other: w/o abdominal distension or tenderness Back/Spine/Pelvis Other: severe degenerative disease of LS with chric LBP, sciatica, claudication and Rt foot drop. He had limited surgery with Dr Campbell, remains in pain. Skin Other: no rashes Neuro Other: w/o focal weakness or numbness, headache. Extrem Other: w/lo swelling Psych Other: Lucid, appropriate mood Objective Labs 11/08/23 04:59 11/08/23 04:59 Labs: Laboratory Results - last 24 hr 11/07/23 11/07/23 11/08/23 16:26 18:52 04:59 WBC 7.0 5.6 RBC 5.80 5.23 Hgb 16.0 14.4 Hct 48.0 43.1 MCV 82.7 82.5 MCH 27.6 27.5 MCHC 33.3 33.3 RDW 13.7 13.8 Plt Count 197 180 Neut % (Auto) 68.8 67.2 Lymph % (Auto) 22.5 L 22.1 L [place] % (Auto) 5.7 6.7 Eos % (Auto) 2.1 3.6 Baso % (Auto) 0.9 0.4 Neut # (Auto) 4900 3800 Lymph # (Auto) 1600 1200 [place] # (Auto) 400 400 Eos # (Auto) 100 200 Baso # (Auto) 100 0 PT 10.8 INR 0.9 APTT 44 H Sodium 136 L 135 L Potassium 4.0 4.1 Chloride 102 104 Carbon Dioxide 29 28 BUN 21 H 20 Creatinine 1.29 H 1.21 Estimated GFR > 60 > 60 BUN/Creatinine Ratio 16.3 16.5 Glucose 96 103 Calcium 9.2 8.2 L Magnesium 2.2 Total Bilirubin 0.9 AST 26 ALT 28 Alkaline Phosphatase 99 Total Creatine Kinase 75 51 L Troponin I < 0.012 < 0.012 NT-Pro-B Natriuret Pep 89 Total Protein 7.7 Albumin 4.7 Globulin 3.0 Albumin/Globulin Ratio 1.6 Lipase 35 PFSH Medical History (Updated 11/07/23 @ 21:44 by Arnav Gill MD) Methadone maintenance therapy patient Hypertension BPH (benign prostatic hyperplasia) Chronic back pain Social History household members: spouse Smoking Status: Never smoker alcohol intake: never Discharge Plan Discharge Plan Patient Disposition: Home Provider Discharge Comment: Your stress test was normal suggesting your chest pain is not from your heart. Please follow-up with your stitcher standard machine. Discharge orders & Medications Prescriptions: Continued methadone 10 mg Tablet 75 mg PO DAILY tamsulosin [Flomax] 0.4 mg Capsule 0.4 mg PO BEDTIME lisinopril 30 mg Tablet 30 mg PO BEDTIME Follow up/Referrals: Doctor Rae MD [Primary Care Provider] - Visit Report/Discharge Packet Stand Alone Forms: Patient Portal/API, Stroke Signs & Symptoms Discharge Data Primary Care Provider: Doctor Kyra Attending Provider: Arnav Lino Admit Date/Time: 11/07/23 20:56
--- NOTE | 2023-11-08 13:13 | PC.NURSE ---
Pt is dressed and ready for discharge home. IV and tele have been removed. No change in prescriptions. Went over d/c instructions with Pt-discussed d/c meds, time of last dose, reviewed stroke education, encouraged Pt to drink plenty of fluids to prevent constipation or dehydration, discussed coming to the ER if he has chest pain or shortness of breath that does not resolve with rest. 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 Pt denied further questions and will be taken out via w/c by TECHNICAL PROGRAMS MANAGER to POV with friend and all belongings when he finishes his lunch.
--- NOTE | 2023-11-08 13:32 | PC.NURSE ---
Pt decided that he would just walk home rather than calling a friend since he lives only a few blocks away. Pt out via w/c to front entrance to go home.
--- NOTE | 2023-11-08 19:31 | DI.NM.S_ITS ---
DATE OF SERVICE: 11/07/2023 PROCEDURE: Exercise perfusion study. INDICATIONS: Hypertension, recurrent chest pain. RADIOPHARMACEUTICAL: 27.5 mCi technetium-99m Myoview IV was injected at stress and 10.7 mCi technetium-99m Myoview IV was injected at rest. It is a 1-day protocol. CARDIAC STRESS: The patient underwent exercise stress test under the supervision of an attending staff using standard Pieter protocol. The patient walked on Pieter protocol for 10.1 minutes. Achieved maximum heart rate of 144, which was 93% of target heart rate. Resting blood pressure 116/80 and peak blood pressure 152/86. Achieved 10.1 METs of workload. SORAYA 0%. Baseline rhythm sinus with sinus bradycardia, heart rate in the 40s. During stress, no convincing ischemic changes seen. No significant arrhythmias. The patient had atypical left mid axillary chest discomfort, which was on a scale of 1 to 10, 6 in intensity at peak exercise, which got resolved at rest. This was a different pain than the pain he had at the time of admission. At that time, he had right chest and shoulder pressure. RAW DATA: There is increased subdiaphragmatic activity. The patient's weight is 245 pounds. GATED STUDY: Stress LV ejection fraction 65% without any obvious wall motion abnormalities. Resting end-diastolic volume 146 mL. TID ratio 0.84, which is within normal limit. Lung/heart ratio 0.38, which is within normal limit. MYOCARDIAL PERFUSION SCAN: Stress supine, resting supine and stress prone images were compared to each other. Stress supine and resting supine images revealed moderate-size, mildly decreased perfusion of inferior wall extending into the inferoapex, which got significantly resolved during stress prone images, suggestive of diaphragmatic tissue attenuation artifact. Summed stress score and summed rest score is zero. CONCLUSION: This is a normal myocardial perfusion study with evidence of diaphragmatic tissue attenuation artifact, which got resolved during stress prone images. Summed stress score and summed rest score is zero. Preserved LV function. Average exercise tolerance. Normal hemodynamic response. Baseline sinus bradycardia with preserved chronotropic response. No significant arrhythmias. Atypical chest discomfort. Overall, low-risk exercise perfusion study. Mahendra Norwood - HARMONY/alejandrina/AY doc#: [id number]/job#: [id number] dd: 11/08/2023 12:55:00 dt: 11/08/2023 19:05:00 DICTATING MD/COPIES TO: Sera Hayward MD COPIES MNE: ZAIDA;
== END 2023-11-08 13:33 | disposition home or self-care (01) ==
LOC: ED 20:56 → AC 20:57
PROVIDERS: Emergency Medicine; Admitting Provider Internal Medicine; Emergency Provider Emergency Medicine; Referring Provider Emergency Medicine; Visit Provider Internal Medicine
DX: R07.9 Chest pain, unspecified (principal); R00.1 Bradycardia, unspecified; T40.2X5A Adverse effect of other opioids, initial encounter; F11.21 Opioid dependence, in remission; I10 Essential (primary) hypertension; E78.1 Pure hyperglyceridemia; N40.0 Benign prostatic hyperplasia without lower urinary tract symptoms; Z98.890 Other specified postprocedural states
CPT/HCPCS: 36415; 71045; 78452; 80048; 80053; 82550; 83690; 83735; 83880; 84484; 85025; 85610; 85730; 93005; 93017; 96361; 96372; 96374; 99284; G0378; A9270; A9502; J1650; J2405

== ENCOUNTER 2023-11-20 18:17 | Emergency (ER) | payer BC, OTHER, MEDICAID, SELFPAY ==
[2023-11-07 21:09] VITALS: BMI 33.2
[2023-11-20 18:21] VITALS: BP 153/81; PULSE 56; RESP 17; TEMP 36.5; O2SAT 97; BMI 32.5
--- NOTE | 2023-11-20 18:24 | DI.RAD.S_ITS ---
PROCEDURE: XR CHEST 1V INDICATIONS: chest pain TECHNIQUE: One view of the chest was acquired. COMPARISON: [facility], CR, XR CHEST 1V, 11/07/2023, 16:35. FINDINGS: Surgical changes and devices: None. Lungs and pleura: Lungs are clear. No pleural effusions or pneumothorax. Mediastinum: Mediastinal contours appear normal. Heart size is normal. Bones and chest wall: No suspicious bony lesions. Overlying soft tissues appear unremarkable. IMPRESSION: No acute cardiopulmonary abnormality is seen. Approved by: Laney Morton M.D.,Ph.D. on 11/20/2023 at 21:25
[2023-11-20] MEDS: ASPIRIN 81 MG CHEW TAB 324 MG PO (18:45)
[2023-11-20 18:57] LABS: Add Manual Diff / Slide Review NO; Basophils Absolute Auto 0 /uL (0-100); Basophils Percent Auto 0.4 % (0-2); Eosinophils Absolute Auto 100 /uL (0-450); Eosinophils Percent Auto 2.2 % (2-4); Hematocrit 45.6 % (41-53); Hemoglobin 15.5 g/dL (13.5-17.5); Lymphocytes Absolute Auto 1000 /uL (1100-4500); Lymphocytes Percent Auto 15.5 % (25-40); Mean Corpuscular Hemoglobin 27.9 PG (26-34); Mean Corpuscular Volume 82.2 fL (80-100); Monocytes Absolute Auto 400 /uL (0-900); Monocytes Percent Auto 6.8 % (3-14); Neutrophils Absolute Auto 4800 /uL (1500-7000); Neutrophils Percent Auto 75.1 % (50-75); Platelet Count 201 X10^3/uL (150-400); Red Blood Cell Count 5.54 X10^6/uL (4.5-5.9); Red Cell Distribution Width 13.7 % (11.6-14.8); White Blood Cell Count 6.4 X10^3/uL (4.5-11.0)
[2023-11-20 19:02] LABS: Prothrombin Time 11.7 SECONDS (9.4-12.5)
[2023-11-20 19:04] LABS: PTT Partial Thromboplastin Tim 41 SECONDS (25.1-36.5)
[2023-11-20 19:06] LABS: Alanine Aminotransferase 23 IU/L (<50); Albumin 4.4 g/dL (3.5-5.0); Albumin Globulin Ratio 1.5 (1.0-2.8); Alkaline Phosphatase 90 U/L (38-126); Aspartate Aminotransferase 26 IU/L (17-59); Bilirubin Total 0.9 mg/dL (0.2-1.3); Blood Urea Nitrogen 14 mg/dL (9-20); Calcium 8.9 mg/dL (8.4-10.2); Carbon Dioxide 30 mmol/L (22-32); Chloride 104 mmol/L (98-107); Creatine Kinase 108 U/L (55-170); Estimated Glomerular Filt Rate > 60 mL/min (>60); Globulin 2.9 g/dL (1.7-4.1); Glucose 95 mg/dL (80-110); HEMOLYSIS < 15 (0-50); Lipase 30 U/L (23-300); Magnesium 2.2 mg/dL (1.6-2.3); Potassium 4.2 mmol/L (3.4-5.1); Sodium 137 mmol/L (137-145); Total Protein 7.3 g/dL (6.3-8.2)
[2023-11-20 19:17] LABS: Troponin I < 0.012 ng/mL (0.01-0.034)
[2023-11-20 21:08] VITALS: O2SAT 96
[2023-11-20 21:09] VITALS: BP 148/80; PULSE 47; RESP 15; O2SAT 96
[2023-11-20 21:30] VITALS: BP 161/80; PULSE 52; RESP 18; O2SAT 93
[2023-11-20 21:45] LABS: Creatine Kinase 107 U/L (55-170)
[2023-11-20 21:58] LABS: Troponin I < 0.012 ng/mL (0.01-0.034)
[2023-11-20 22:00] VITALS: PULSE 51; RESP 25; O2SAT 95
[2023-11-20 22:01] VITALS: BP 148/72; PULSE 50; RESP 24; O2SAT 95
--- NOTE | 2023-11-20 22:23 | ED_ITS ---
HPI - Chest Pain General Chief Complaint: Chest Pain Stated Complaint: chest px Time Seen by Provider: 11/20/23 21:04 Source: patient Mode of arrival: Ambulatory Limitations: no limitations History of Present Illness HPI narrative: Patient is a 63-year-old male. Is here for evaluation of chest discomfort that he states has been intermittent since this morning. No shortness of breath. Not worse with palpation and movement. No fevers. He has had discomfort like this in the past. He states he was scheduled for a cardiac catheterization approximately 24 hours from now as an outpatient. At the time my evaluation he was not having any chest discomfort. He denies any lightheadedness. No abdominal pain, nausea vomiting. No lower extremity swelling. Related Data Home Medications Medication Instructions Recorded Confirmed lisinopril 30 mg tablet 30 mg PO BEDTIME 11/02/23 11/07/23 methadone 10 mg tablet 75 mg PO DAILY 11/02/23 11/07/23 tamsulosin 0.4 mg capsule (Flomax) 0.4 mg PO BEDTIME 11/02/23 11/07/23 Allergies Allergy/AdvReac Type Severity Reaction Status Date / Time No Known Drug Allergies Allergy Verified 11/20/23 18:21 Review of Systems Review of Systems ROS Unobtainable: All systems reviewed & are unremarkable except as noted in HPI and below Patient History Medical History Methadone maintenance therapy patient Hypertension BPH (benign prostatic hyperplasia) Chronic back pain Social History household members: spouse Smoking Status: Never smoker alcohol intake: never Smoking Status: Never smoker Substance Use Type: does not use Exam Initial Vital Signs Initial Vital Signs: Vital Signs Temperature 97.7 F 11/20/23 18:21 Pulse Rate 56 L 11/20/23 18:21 Respiratory Rate 17 11/20/23 18:21 Blood Pressure 153/81 H 11/20/23 18:21 Pulse Oximetry 97 11/20/23 18:21 Oxygen Delivery Method Room Air 11/20/23 18:21 Const General: cooperative, comfortable and No ill appearing HENMT Head: normal to inspection and normocephalic Resp Effort & Inspection: normal respiratory effort Auscultation: clear to auscultation bilaterally Cardio Rate: regular rate Rhythm: regular rhythm GI Inspection: normal to inspection and non-distended Skin General: no rashes or lesions noted Neuro General: patient alert, patient awake, patient oriented x3 and moves all extremities Extrem General: capillary refill normal Course Orders Ordered: ED Orders 11/20/23 21:23 Troponin & CK Cardiac Panel Stat Discontinued Medications Aspirin (Aspirin 81 Mg Chew Tab) 324 mg PO NOW ONE Stop: 11/20/23 18:25 Last Admin: 11/20/23 18:45 Dose: 324 mg Documented By: CASEY Vital Signs Vital signs: Vital Signs - 8 hr 11/20/23 21:08 11/20/23 21:09 11/20/23 21:09 Pulse Rate 47 L Respiratory Rate 15 Blood Pressure 148/80 H Pulse Oximetry 96 96 11/20/23 21:30 11/20/23 21:30 11/20/23 22:00 Pulse Rate 52 L 51 L Respiratory Rate 18 25 H Blood Pressure 161/80 H Pulse Oximetry 93 95 11/20/23 22:01 11/20/23 22:01 Pulse Rate 50 L Respiratory Rate 24 Blood Pressure 148/72 H Pulse Oximetry 95 MDM - Chest Pain Lab Data Attestation: I reviewed the patient's lab results. 11/20/23 18:32 11/20/23 18:32 Labs: Lab Results 11/20/23 11/20/23 Range/Units 18:32 21:23 WBC 6.4 (4.5-11.0) X10^3/uL RBC 5.54 (4.5-5.9) X10^6/uL Hgb 15.5 (13.5-17.5) g/dL Hct 45.6 (41-53) % MCV 82.2 (80-100) fL MCH 27.9 (26-34) PG MCHC 34.0 (30-36) % RDW 13.7 (11.6-14.8) % Plt Count 201 (150-400) X10^3/uL Neut % (Auto) 75.1 H (50-75) % Lymph % (Auto) 15.5 L (25-40) % [place] % (Auto) 6.8 (3-14) % Eos % (Auto) 2.2 (2-4) % Baso % (Auto) 0.4 (0-2) % Neut # (Auto) 4800 (9730-5159) /uL Lymph # (Auto) 1000 L (5381-6181) /uL [place] # (Auto) 400 (0-900) /uL Eos # (Auto) 100 (0-450) /uL Baso # (Auto) 0 (0-100) /uL PT 11.7 (9.4-12.5) SECONDS INR 1.0 (0.9-1.3) APTT 41 H (25.1-36.5) SECONDS Sodium 137 (137-145) mmol/L Potassium 4.2 (3.4-5.1) mmol/L Chloride 104 (98-107) mmol/L Carbon Dioxide 30 (22-32) mmol/L BUN 14 (9-20) mg/dL Creatinine 1.27 H (0.66-1.25) mg/dL Estimated GFR > 60 (>60) mL/min BUN/Creatinine Ratio 11.0 (6-22) Glucose 95 (80-110) mg/dL Calcium 8.9 (8.4-10.2) mg/dL Magnesium 2.2 (1.6-2.3) mg/dL Total Bilirubin 0.9 (0.2-1.3) mg/dL AST 26 (17-59) IU/L ALT 23 (<50) IU/L Alkaline Phosphatase 90 (38-126) U/L Total Creatine Kinase 108 107 (55-170) U/L Troponin I < 0.012 < 0.012 (0.01-0.034) ng/mL Total Protein 7.3 (6.3-8.2) g/dL Albumin 4.4 (3.5-5.0) g/dL Globulin 2.9 (1.7-4.1) g/dL Albumin/Globulin Ratio 1.5 (1.0-2.8) Lipase 30 (23-300) U/L Imaging Data Chest x-ray: Radiologist's Impression: PROCEDURE: XR CHEST 1V INDICATIONS: chest pain TECHNIQUE: One view of the chest was acquired. COMPARISON: [facility], CR, XR CHEST 1V, 11/07/2023, 16:35. FINDINGS: Surgical changes and devices: None. Lungs and pleura: Lungs are clear. No pleural effusions or pneumothorax. Mediastinum: Mediastinal contours appear normal. Heart size is normal. Bones and chest wall: No suspicious bony lesions. Overlying soft tissues appear unremarkable. IMPRESSION: No acute cardiopulmonary abnormality is seen. ECG Data Attestation: I personally reviewed and interpreted this ECG as follows: Interpretation: Sinus bradycardia Ventricular rate of 57 Left axis deviation Normal QRS No ST T wave changes MDM Narrative Medical decision making narrative: Patient has negative troponin. Nonischemic EKG. Chest x-ray is unremarkable. He is currently asymptomatic. Patient has a scheduled cardiac catheterization approximately 24 hours now by his piece goods clerk. Plan will be is to discharge patient home so that he can keep that appointment to have the catheterizations. Do feel the patient needs admitted today for emergent catheterization. He was given return precautions follow-up instructions. He expressed understanding and agreement. Discharge Plan Departure Patient Disposition: Home Clinical Impression: Chest pain Instructions: DI for Chest Pain Activity Restrictions/Additional Instructions: Continue to take all of your medications as directed and keep your scheduled appointment on Monday morning with your piece goods clerk. Return to the emergency department for new or worsening symptoms. Prescriptions: No Action methadone 10 mg Tablet 75 mg PO DAILY tamsulosin [Flomax] 0.4 mg Capsule 0.4 mg PO BEDTIME lisinopril 30 mg Tablet 30 mg PO BEDTIME Referrals: Miscellaneous,Doctor, [Primary Care Provider] - Stand Alone Forms: Patient Portal/API
== END 2023-11-20 22:32 | disposition home or self-care (01) ==
PROVIDERS: Emergency Provider Emergency Medicine
DX: R07.9 Chest pain, unspecified (principal)
CPT/HCPCS: 36415; 71045; 80053; 82550; 83690; 83735; 84484; 85025; 85610; 85730; 93005; 99283; 99284

== ENCOUNTER 2023-12-04 23:54 | Emergency (ER) | payer MEDICARE, BC, MEDICAID, SELFPAY ==
[2023-11-07 21:09] VITALS: BMI 33.2
--- NOTE | 2023-12-05 00:04 | DI.RAD.S_ITS ---
PROCEDURE: XR CHEST 1V INDICATIONS: chest pain TECHNIQUE: One view of the chest was acquired. COMPARISON: [facility], CR, XR CHEST 1V, 11/20/2023, 18:43. FINDINGS: Surgical changes and devices: None. Lungs and pleura: Lungs are clear. No pleural effusions or pneumothorax. Mediastinum: Mediastinal contours appear normal. Heart size is normal. Bones and chest wall: No suspicious bony lesions. Overlying soft tissues appear unremarkable. IMPRESSION: No acute cardiopulmonary abnormality is seen. Dictated by: Bam Ramon M.D. on 12/05/2023 at 0:30 Approved by: Bam Ramon M.D. on 12/05/2023 at 0:30
[2023-12-05 00:05] VITALS: BP 149/75; PULSE 53; RESP 16; TEMP 36.5; O2SAT 94; BMI 32.5
--- NOTE | 2023-12-05 00:05 | EKG_ITS ---
[address] [address] Test Date: 2023-12-05 Pat Name: Mahendra Norwood Department: Room: Gender: Male Physician Assistant Certified: Gui CRUZ RN : 1960 Requested By: Order Number: [id number] Reading MD: Rene Perez Measurements Intervals [place] Rate: 51 P: 45 [place]: 182 QRS: -47 QRSD: 96 T: 6 QT: 444 QTc: 409 Interpretive Statements Sinus bradycardia Left axis deviation Inferior infarct , age undetermined Electronically Signed On 12-06-2023 18:37:30 PDT by Rene Perez
[2023-12-05 00:19] LABS: Add Manual Diff / Slide Review NO; Basophils Absolute Auto 0 /uL (0-100); Basophils Percent Auto 0.5 % (0-2); Eosinophils Absolute Auto 200 /uL (0-450); Eosinophils Percent Auto 3.7 % (2-4); Hematocrit 44.8 % (41-53); Hemoglobin 14.9 g/dL (13.5-17.5); Lymphocytes Absolute Auto 1100 /uL (1100-4500); Lymphocytes Percent Auto 16.6 % (25-40); Mean Corpuscular HGB Conc 33.3 % (30-36); Mean Corpuscular Hemoglobin 27.3 PG (26-34); Mean Corpuscular Volume 82.1 fL (80-100); Monocytes Absolute Auto 500 /uL (0-900); Monocytes Percent Auto 7.1 % (3-14); Neutrophils Absolute Auto 4800 /uL (1500-7000); Neutrophils Percent Auto 72.1 % (50-75); Platelet Count 184 X10^3/uL (150-400); Red Blood Cell Count 5.45 X10^6/uL (4.5-5.9); Red Cell Distribution Width 13.4 % (11.6-14.8); White Blood Cell Count 6.6 X10^3/uL (4.5-11.0)
[2023-12-05 00:24] VITALS: BP 98/65; PULSE 68; RESP 15; TEMP 36.9; O2SAT 98
[2023-12-05 00:31] LABS: Alanine Aminotransferase 22 IU/L (<50); Albumin 4.4 g/dL (3.5-5.0); Albumin Globulin Ratio 1.5 (1.0-2.8); Alkaline Phosphatase 87 U/L (38-126); Aspartate Aminotransferase 25 IU/L (17-59); Bilirubin Total 0.5 mg/dL (0.2-1.3); Blood Urea Nitrogen 23 mg/dL (9-20); Calcium 8.8 mg/dL (8.4-10.2); Carbon Dioxide 29 mmol/L (22-32); Chloride 105 mmol/L (98-107); Creatine Kinase 129 U/L (55-170); Estimated Glomerular Filt Rate 58 mL/min (>60); Globulin 2.9 g/dL (1.7-4.1); Glucose 83 mg/dL (80-110); HEMOLYSIS < 15 (0-50); Lipase 30 U/L (23-300); Potassium 3.8 mmol/L (3.4-5.1); Sodium 137 mmol/L (137-145); Total Protein 7.3 g/dL (6.3-8.2)
[2023-12-05 00:43] LABS: Troponin I < 0.012 ng/mL (0.01-0.034)
[2023-12-05] MEDS: ASPIRIN 81 MG CHEW TAB 324 MG PO (00:50)
[2023-12-05] MEDS: SODIUM CHLORIDE 0.9% 1,000 ML 150 ML IV (00:55)
--- NOTE | 2023-12-05 01:08 | ED.CHESTPAIN ---
HPI - Chest Pain General Chief Complaint: Chest Pain Stated Complaint: chest pain Time Seen by Provider: 12/05/23 00:10 Source: patient Mode of arrival: Ambulatory Limitations: no limitations History of Present Illness HPI narrative: 63-year-old gentleman with a history of hypertension, chronic pain on methadone, BPH on Flomax was seen on November 19 with complaints of chest pain with unremarkable workup. Was reportedly having a outpatient scheduled heart catheterization that was reportedly done last week [facility]. He has not outpatient cardiology appointment on the to find out results. He was started on isosorbide and atorvastatin at that time. 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 Slight dyspnea no palpitations. This is similar to prior pain. Currently describes it as minimal but gives a a 5/6 for pressure. He does not note that he has had increased swelling in his lower extremities. No exertional dyspnea or exertional chest pain. No recent orthopnea. Related Data Home Medications Medication Instructions Recorded Confirmed lisinopril 30 mg tablet 30 mg PO BEDTIME 11/02/23 11/07/23 methadone 10 mg tablet 75 mg PO DAILY 11/02/23 11/07/23 tamsulosin 0.4 mg capsule (Flomax) 0.4 mg PO BEDTIME 11/02/23 11/07/23 Allergies Allergy/AdvReac Type Severity Reaction Status Date / Time No Known Drug Allergies Allergy Verified 11/20/23 18:21 Review of Systems Review of Systems Narrative: Pertinent positive and negative findings as per HPI Patient History Medical History Methadone maintenance therapy patient Hypertension BPH (benign prostatic hyperplasia) Chronic back pain Social History household members: spouse Smoking Status: Never smoker alcohol intake: never Smoking Status: Never smoker Substance Use Type: does not use Exam Initial Vital Signs Initial Vital Signs: Vital Signs Temperature 97.7 F 12/05/23 00:05 Pulse Rate 53 L 12/05/23 00:05 Respiratory Rate 16 12/05/23 00:05 Blood Pressure 149/75 H 12/05/23 00:05 Pulse Oximetry 94 12/05/23 00:05 Oxygen Delivery Method Room Air 12/05/23 00:05 General: Healthy appearing, in no acute distress. Able to give a complete and coherent history. Well-nourished well-developed HEENT: Moist mucous membranes, normal sclera with reactive pupils, Neck: No JVD, supple Respiratory: Lungs are clear to auscultation, no wheezing no rales no rhonchi. Full and symmetrical air movement Cardiac: Regular rate and rhythm no murmurs no bruits Abdomen: Soft, nontender, good bowel tones, no flank pain Skin: Warm and dry, no rashes Neurologic: Grossly neurologically intact with no obvious asymmetries or abnormalities Extremities: No trauma, well perfused Psych: Cooperative, appropriate insight and affect Course Orders Ordered: ED Orders 12/05/23 00:04 XR chest 1V Stat EKG-12 Lead Stat 12/05/23 00:10 Complete Blood Count AUTO DIFF Stat Comprehensive Metabolic Panel Stat Lipase Stat Troponin & CK Cardiac Panel Stat 12/05/23 02:09 Trop I [Troponin I] Stat Sodium Chloride (Normal Saline 0.9%) 1,000 mls @ 150 mls/hr IV CONT ALON Last Admin: 12/05/23 00:55 Dose: 150 mls/hr Documented By: Nitroglycerin (Nitroglycerin 0.4 Mg Sl Tab) 0.4 mg SL [id number] PRN PRN Reason: Chest Pain Last Admin: 12/05/23 01:24 Dose: 0.4 mg Documented By: Discontinued Medications Aspirin (Aspirin 81 Mg Chew Tab) 324 mg PO NOW ONE Stop: 12/05/23 00:04 Last Admin: 12/05/23 00:50 Dose: 324 mg Documented By: Vital Signs Vital signs: Vital Signs - 8 hr 12/05/23 00:05 12/05/23 00:24 12/05/23 01:24 Temperature 97.7 F 98.5 F Pulse Rate 53 L 68 45 L Respiratory Rate 16 15 Blood Pressure 149/75 H 98/65 117/64 Pulse Oximetry 94 98 Oxygen Delivery Method Room Air Room Air 12/05/23 01:30 Temperature Pulse Rate 51 L Respiratory Rate Blood Pressure 116/72 Pulse Oximetry Oxygen Delivery Method MDM - Chest Pain Lab Data 12/05/23 00:10 12/05/23 00:10 Labs: Lab Results 12/05/23 12/05/23 Range/Units 00:10 02:09 WBC 6.6 (4.5-11.0) X10^3/uL RBC 5.45 (4.5-5.9) X10^6/uL Hgb 14.9 (13.5-17.5) g/dL Hct 44.8 (41-53) % MCV 82.1 (80-100) fL MCH 27.3 (26-34) PG MCHC 33.3 (30-36) % RDW 13.4 (11.6-14.8) % Plt Count 184 (150-400) X10^3/uL Neut % (Auto) 72.1 (50-75) % Lymph % (Auto) 16.6 L (25-40) % [place] % (Auto) 7.1 (3-14) % Eos % (Auto) 3.7 (2-4) % Baso % (Auto) 0.5 (0-2) % Neut # (Auto) 4800 (4110-7040) /uL Lymph # (Auto) 1100 (6351-6302) /uL [place] # (Auto) 500 (0-900) /uL Eos # (Auto) 200 (0-450) /uL Baso # (Auto) 0 (0-100) /uL Sodium 137 (137-145) mmol/L Potassium 3.8 (3.4-5.1) mmol/L Chloride 105 (98-107) mmol/L Carbon Dioxide 29 (22-32) mmol/L BUN 23 H (9-20) mg/dL Creatinine 1.35 H (0.66-1.25) mg/dL Estimated GFR 58 L (>60) mL/min BUN/Creatinine Ratio 17.0 (6-22) Glucose 83 (80-110) mg/dL Calcium 8.8 (8.4-10.2) mg/dL Total Bilirubin 0.5 (0.2-1.3) mg/dL AST 25 (17-59) IU/L ALT 22 (<50) IU/L Alkaline Phosphatase 87 (38-126) U/L Total Creatine Kinase 129 (55-170) U/L Troponin I < 0.012 < 0.012 (0.01-0.034) ng/mL Total Protein 7.3 (6.3-8.2) g/dL Albumin 4.4 (3.5-5.0) g/dL Globulin 2.9 (1.7-4.1) g/dL Albumin/Globulin Ratio 1.5 (1.0-2.8) Lipase 30 (23-300) U/L MDM Narrative Medical decision making narrative: CC: Chest pain Complicating co-morbidities: Seen on November 19 for chest pain, apparently had a heart catheterization on November 20. Was started on isosorbide and atorvastatin at that time and has a follow up appointment scheduled on the to review results Data collected from: patient Medical records reviewed: ED visit on November 19 for similar complaints reviewed Hospitalization November 02 for chest pain is reviewed. Similar complaints to today possible syncopal episode, CT angiogram at that time was unremarkable. He was noted to be in a sinus bradycardia through out his hospital stay. Echocardiogram at that time was unremarkable. Recommendation with this visit was to consider transitioning away from methadone for his chronic back pain Hospitalization on October 28 with recurrent episodes of chest pain hospitalize this time for a stress test. Nuclear medicine stress test showed no ischemic changes and was felt to be low risk. Differential considered: Acute coronary syndrome, costochondritis, pleurisy Exam documented above, pertinent findings include: Patient is still having chest pressure but exam is otherwise benign Lab Test results independently reviewed as above. Pertinent findings: Initial chemistries are unremarkable Initial CBC is reassuring Initial troponin is undetectable, repeat at 2:00 a.m. remains undetectable Independently reviewed EKG: Sinus bradycardia at a rate of 51. Left axis deviation. No acute ischemic changes Imaging studies independently reviewed: Chest x-ray shows no acute finding cardiac workup to date: ER visits 11/01 for chest pain with admission, 11/04 for bradycardia, 11/06 for chest pain with hospital admission, November 19 for chest pain Cardiac catheterization November 20 shows essentially no significant cardiac disease Zio patch has been in place for much of October. I do not have results of this immediately available He has had head CT that was unremarkable CT angiogram of the chest that did not show abnormality Echocardiogram demonstrating relative bradycardia at 02/15/2047 with ejection fraction at 60-65%. Myocardial perfusion scan is interpreted as normal Consultations: We will discuss with his [place]'s email marketing specialist and see if we can review findings of the recently completed heart catheterization 150am Dr [place], cardiology. Heart catheterization done on November 21 was basically normal. He has mild, 10-30% disease that should not be causing his recurrent chest pain. Treatments: Aspirin, sublingual nitro Re-evaluations: 150am patient states that his pain has not changed with 2 sublingual nitroglycerin. Still short of breath and now with a good pleth oxygen saturations were dropping to 88%. He remains relatively bradycardic in the 50 range. Discussion: 63-year-old gentleman with recurrent episodes of chest pain and bradycardia. Zio patch results are still outstanding. He is recently moved from [place] does not have a primary care physician. Is following up with Cardiology. He has had a thorough cardiac workup with no cardiac etiology identified. He currently is on 75 mg of methadone for chronic back pain. Methadone can be associated with bradycardia as well as decreased respiratory drive. Apparently somebody had talked to him about starting Suboxone which may be an excellent idea. Unfortunately they it also consider the idea of simultaneous methadone and Suboxone which can cause significant precipitated withdrawals. Told him that typically the recommendation is being off methadone for at least a week and beginning with a very small Suboxone doses. I think Suboxone maybe a very good option for him in terms of pain control for his chronic back issues. At this time I am seeing no evidence of acute coronary findings. His pain is similar to that that has been bothering him for almost a month with extensive workup as outlined above. Encouraged him to follow up with his email marketing specialist as scheduled and to continue working on finding a primary care physician. Discharge Plan Departure Patient Disposition: Home Clinical Impression: Atypical chest pain Instructions: DI for Atypical Chest Pain Activity Restrictions/Additional Instructions: Thank you for coming in today You had multiple ER visits, hospital admissions and extensive workup for your heart pain. To date, your heart catheterization is essentially normal, your heart stress test is normal, CT of your chest looking for blood clots is normal, CT of your brain looking for any additional abnormalities is reassuring, your echocardiogram(ultrasound picture of your heart) is reassuring. The Zio patch results (the heart monitor that was in place for approximately 2 weeks) still needs to be factored in. Your workup today was equally unremarkable. Your pain does not seem to resolve with any cardiac interventions. It is possible that the pain is related to arthritis or muscles, joints or similar type finding. One of the side effects of methadone can be bradycardia. This may be contributing to your problems. You had mentioned that 1 of your physicians had discussed with you switching from methadone to Suboxone. I think this may be an excellent option for you. Suboxone can be quite helpful for chronic pain. Sometimes getting off of methadone and onto Suboxone can be a bit of a process but in the end I believe it will be time while spent Please make sure you follow up with your email marketing specialist. Please continue to work on finding a primary care physician. Primary care physicians are in high demand in the entire [place] and you may be told that it is months before our 1st visit, please accept that 1st visit and do continue to look for other options. If you find that you are getting worse or develop any new symptoms, please feel free to return to the emergency department for further evaluation. Prescriptions: No Action methadone 10 mg Tablet 75 mg PO DAILY tamsulosin [Flomax] 0.4 mg Capsule 0.4 mg PO BEDTIME lisinopril 30 mg Tablet 30 mg PO BEDTIME Referrals: Miscellaneous,Doctor, [Primary Care Provider] - Stand Alone Forms: Patient Portal/API
[2023-12-05 01:24] VITALS: BP 117/64; PULSE 45
[2023-12-05] MEDS: NITROGLYCERIN 0.4 MG SL TAB SL ×2 (01:24→01:30)
[2023-12-05 01:30] VITALS: BP 116/72; PULSE 51
[2023-12-05 02:35] LABS: Troponin I < 0.012 ng/mL (0.01-0.034)
[2023-12-05 03:04] VITALS: BP 117/62; PULSE 46; RESP 16; O2SAT 94
== END 2023-12-05 03:06 | disposition home or self-care (01) ==
PROVIDERS: Emergency Provider Emergency Medicine
DX: R07.89 Other chest pain (principal)
CPT/HCPCS: 36415; 71045; 80053; 82550; 83690; 84484; 85025; 93005; 99284

== ENCOUNTER 2023-12-25 19:00 | Emergency (ER) | payer BC, OTHER, MEDICAID, SELFPAY ==
[2023-11-07 21:09] VITALS: BMI 33.2
[2023-12-25] VITALS (20 sets, daily range): BP systolic 105–145; BP diastolic 59–76; PULSE 41–58; RESP 16–25; TEMP 37.3; O2SAT 88–97; BMI 32.5
--- NOTE | 2023-12-25 19:09 | DI.RAD.S_ITS ---
PROCEDURE: XR CHEST 1V INDICATIONS: chest pain TECHNIQUE: One view of the chest was acquired. COMPARISON: [facility], CR, XR CHEST 1V, 12/05/2023, 0:04. FINDINGS: Surgical changes and devices: None. Lungs and pleura: Lungs are clear. No pleural effusions or pneumothorax. Mediastinum: Mediastinal contours appear normal. Heart size is normal. Bones and chest wall: No suspicious bony lesions. Overlying soft tissues appear unremarkable. IMPRESSION: No acute cardiopulmonary pathology. Dictated by: Rikki George M.D. on 12/25/2023 at 19:36 Approved by: Rikki George M.D. on 12/25/2023 at 19:36
--- NOTE | 2023-12-25 19:09 | EKG_ITS ---
[place] [id number] [place] [id number] Test Date: 2023-12-25 Pat Name: Mahendra Norwood Department: [facility] Room: Gender: Male Tenter Frame Back Tender: LILA Villafana : 1960 Requested By: Order Number: [id number] Reading MD: Riley Kaiser MD Measurements Intervals [place] Rate: 55 P: 35 ID: [id number] QRS: -44 QRSD: 96 T: 63 QT: 438 QTc: 419 Interpretive Statements Sinus bradycardia Left axis deviation Inferior infarct , age undetermined Electronically Signed On 12-26-2023 7:28:27 PDT by Riley Kaiser MD
[2023-12-25] MEDS: ASPIRIN 81 MG CHEW TAB 324 MG PO (19:10)
[2023-12-25 19:33] LABS: Add Manual Diff / Slide Review NO; Basophils Absolute Auto 0 /uL (0-100); Basophils Percent Auto 0.5 % (0-2); Eosinophils Absolute Auto 200 /uL (0-450); Eosinophils Percent Auto 3.8 % (2-4); Hematocrit 41.5 % (41-53); Lymphocytes Absolute Auto 1100 /uL (1100-4500); Lymphocytes Percent Auto 20.3 % (25-40); Mean Corpuscular HGB Conc 33.7 % (30-36); Mean Corpuscular Hemoglobin 27.6 PG (26-34); Mean Corpuscular Volume 81.9 fL (80-100); Monocytes Absolute Auto 400 /uL (0-900); Monocytes Percent Auto 7.1 % (3-14); Neutrophils Absolute Auto 3800 /uL (1500-7000); Neutrophils Percent Auto 68.3 % (50-75); Platelet Count 192 X10^3/uL (150-400); Red Blood Cell Count 5.06 X10^6/uL (4.5-5.9); Red Cell Distribution Width 13.5 % (11.6-14.8); White Blood Cell Count 5.6 X10^3/uL (4.5-11.0)
[2023-12-25 19:43] LABS: Prothrombin Time 11.5 SECONDS (9.4-12.5)
[2023-12-25 19:45] LABS: PTT Partial Thromboplastin Tim 38 SECONDS (25.1-36.5)
--- NOTE | 2023-12-25 19:50 | ED.CHESTPAIN ---
HPI - Chest Pain General Chief Complaint: Chest Pain Stated Complaint: chest pressure Time Seen by Provider: 12/25/23 19:07 Source: patient Mode of arrival: Ambulatory Limitations: no limitations History of Present Illness HPI narrative: 63-year-old male with chronic pain for which he takes methadone, ongoing chest discomfort, evaluated in November 2023 at [facility] with cardiac catheterization that he reports seemed okay, no coronary interventions from that hospitalization. Complains of left upper anterior sharp pain, somewhat worse with deep breathing, some radiation to left shoulder. No blunt truncal trauma, no new activities, no injuries known. Patient equivocal about prior blood clots, seemed to think that he had had blood clots in the past. He denies pain to his legs or arms, no swelling legs or arms. No recent cough, fevers, chills. Related Data Home Medications Medication Instructions Recorded Confirmed lisinopril 30 mg tablet 30 mg PO BEDTIME 11/02/23 11/07/23 methadone 10 mg tablet 75 mg PO DAILY 11/02/23 11/07/23 tamsulosin 0.4 mg capsule (Flomax) 0.4 mg PO BEDTIME 11/02/23 11/07/23 Allergies Allergy/AdvReac Type Severity Reaction Status Date / Time No Known Drug Allergies Allergy Verified 11/20/23 18:21 Review of Systems Review of Systems Narrative: Per HPI Patient History Medical History Methadone maintenance therapy patient Hypertension BPH (benign prostatic hyperplasia) Chronic back pain Social History household members: spouse Smoking Status: Never smoker alcohol intake: never Smoking Status: Never smoker alcohol intake frequency: 0-2 drinks per day Substance Use Type: does not use Exam Narrative Exam Narrative: GENERAL: Well-developed patient, in mild distress. HEAD: Atraumatic. Normocephalic. EYES: Pupils equal round and reactive. Extraocular motions intact. No scleral icterus. No injection or drainage. ENT: Nose without bleeding, purulent drainage. Throat without erythema, tonsillar hypertrophy or exudate. Airway patent. NECK: Trachea midline. Non tender CARDIOVASCULAR: Regular rate and rhythm without murmurs, gallops, or rubs. RESPIRATORY: Clear to auscultation. Breath sounds equal bilaterally. No wheezes, rales, or rhonchi. GASTROINTESTINAL: Abdomen soft, non-tender, nondistended. EXTREMITIES: No edema or joint tenderness. BACK: Nontender without deformity or crepitance. No flank tenderness. NEURO: AOx3. SKIN: No rash or erythema of visible areas Initial Vital Signs Initial Vital Signs: Vital Signs Pulse Rate 53 L 12/25/23 19:10 Blood Pressure 145/76 H 12/25/23 19:10 Pulse Oximetry 96 12/25/23 19:10 Oxygen Delivery Method Nasal Cannula 12/25/23 19:10 Oxygen Flow Rate 3 12/25/23 19:10 Course Orders Ordered: ED Orders 12/25/23 19:09 XR chest 1V Stat EKG-12 Lead Stat 12/25/23 19:25 Complete Blood Count AUTO DIFF Stat Comprehensive Metabolic Panel Stat D Dimer Stat Lipase Stat Magnesium Stat NT-proBNP (BNP-Adult 18+) Stat PTT Partial Thromboplastin Jose Stat Prothrombin Time INR Stat Troponin & CK Cardiac Panel Stat 12/25/23 21:00 Respiratory Panel (Film Array) Stat 12/25/23 21:18 Trop I [Troponin I] Stat 12/25/23 21:41 CT angio chest PE protocol Stat Discontinued Medications Albuterol (Albuterol 2.5 Mg/3 Ml Neb (Adult)) 2.5 mg INH NOW ONE Stop: 12/25/23 21:57 Last Admin: 12/25/23 22:09 Dose: 2.5 mg Documented By: MASON Aspirin (Aspirin 81 Mg Chew Tab) 324 mg PO NOW ONE Stop: 12/25/23 19:10 Last Admin: 12/25/23 19:10 Dose: 324 mg Documented By: TALA Sodium Chloride (Normal Saline 0.9%) 1,000 mls @ 1,000 mls/hr IV BOLUS ONE Stop: 12/25/23 21:11 Last Infusion: 12/25/23 21:04 Dose: Infused Documented By: Admin: 12/25/23 20:19 Dose: 1,000 mls/hr Documented By: HUONG Morphine Sulfate (Morphine 2 Mg/Ml Inj) 2 mg IV NOW ONE Stop: 12/25/23 20:12 Last Admin: 12/25/23 20:19 Dose: 2 mg Documented By: HUONG Nitroglycerin (Nitroglycerin 0.4 Mg Sl Tab) 0.4 mg SL [id number] PRN PRN Reason: Chest Pain Last Admin: 12/25/23 19:56 Dose: 0.4 mg Documented By: HUONG Ondansetron HCl (Ondansetron 4 Mg/2 Ml Inj) 4 mg IV NOW ONE Stop: 12/25/23 20:30 Last Admin: 12/25/23 20:30 Dose: 4 mg Documented By: HUONG Vital Signs Vital signs: Vital Signs - 8 hr 12/25/23 19:10 12/25/23 19:10 12/25/23 19:20 Temperature 99.2 F Pulse Rate 53 L 54 L Respiratory Rate 18 Blood Pressure 145/76 H 145/76 H Pulse Oximetry 96 94 Oxygen Delivery Method Nasal Cannula Room Air Oxygen Flow Rate 3 Fraction of Inspired Oxygen 12/25/23 19:30 12/25/23 19:56 12/25/23 19:58 Temperature Pulse Rate 55 L 54 L Respiratory Rate Blood Pressure 119/59 L 119/59 L Pulse Oximetry 93 Oxygen Delivery Method Nasal Cannula Oxygen Flow Rate 3 Fraction of Inspired Oxygen 12/25/23 19:58 12/25/23 20:00 12/25/23 20:06 Temperature Pulse Rate 56 L 58 L 55 L Respiratory Rate 22 23 23 Blood Pressure Pulse Oximetry 92 94 90 L Oxygen Delivery Method Nasal Cannula Oxygen Flow Rate 3 Fraction of Inspired Oxygen 12/25/23 20:06 12/25/23 20:15 12/25/23 20:18 Temperature Pulse Rate Respiratory Rate Blood Pressure 105/61 Pulse Oximetry 88 L 93 Oxygen Delivery Method Room Air Nasal Cannula Oxygen Flow Rate 3 Fraction of Inspired Oxygen 12/25/23 20:23 12/25/23 20:23 12/25/23 20:30 Temperature Pulse Rate 52 L 54 L Respiratory Rate 19 16 Blood Pressure 106/61 Pulse Oximetry 92 92 Oxygen Delivery Method Nasal Cannula Nasal Cannula Oxygen Flow Rate 3 3 Fraction of Inspired Oxygen 12/25/23 20:30 12/25/23 21:00 12/25/23 21:01 Temperature Pulse Rate 45 L 45 L Respiratory Rate 17 18 Blood Pressure 110/60 Pulse Oximetry 96 96 Oxygen Delivery Method Nasal Cannula Oxygen Flow Rate 3 Fraction of Inspired Oxygen 12/25/23 21:01 12/25/23 21:30 12/25/23 21:31 Temperature Pulse Rate 43 L 41 L Respiratory Rate 18 18 Blood Pressure 129/71 Pulse Oximetry 96 97 Oxygen Delivery Method Oxygen Flow Rate Fraction of Inspired Oxygen 12/25/23 21:31 12/25/23 22:00 12/25/23 22:09 Temperature Pulse Rate 42 L 41 L Respiratory Rate 18 18 Blood Pressure 113/65 Pulse Oximetry 96 97 Oxygen Delivery Method Nasal Cannula Oxygen Flow Rate 3 Fraction of Inspired Oxygen 32 12/25/23 22:30 12/25/23 23:00 12/25/23 23:33 Temperature Pulse Rate 47 L 47 L Respiratory Rate 25 H 23 Blood Pressure 113/65 Pulse Oximetry 95 95 Oxygen Delivery Method Oxygen Flow Rate Fraction of Inspired Oxygen MDM - Chest Pain Lab Data Attestation: I reviewed the patient's lab results. 12/25/23 19:25 12/25/23 19:25 Labs: Lab Results 12/25/23 12/25/23 12/25/23 Range/Units 19:25 21:00 21:18 WBC 5.6 (4.5-11.0) X10^3/uL RBC 5.06 (4.5-5.9) X10^6/uL Hgb 14.0 (13.5-17.5) g/dL Hct 41.5 (41-53) % MCV 81.9 (80-100) fL MCH 27.6 (26-34) PG MCHC 33.7 (30-36) % RDW 13.5 (11.6-14.8) % Plt Count 192 (150-400) X10^3/uL Neut % (Auto) 68.3 (50-75) % Lymph % (Auto) 20.3 L (25-40) % Kern % (Auto) 7.1 (3-14) % Eos % (Auto) 3.8 (2-4) % Baso % (Auto) 0.5 (0-2) % Neut # (Auto) 3800 (6060-4840) /uL Lymph # (Auto) 1100 (1433-3296) /uL Kern # (Auto) 400 (0-900) /uL Eos # (Auto) 200 (0-450) /uL Baso # (Auto) 0 (0-100) /uL PT 11.5 (9.4-12.5) SECONDS INR 1.0 (0.9-1.3) APTT 38 H (25.1-36.5) SECONDS D-Dimer 418 (<500) ng/ml Sodium 136 L (137-145) mmol/L Potassium 3.9 (3.4-5.1) mmol/L Chloride 105 (98-107) mmol/L Carbon Dioxide 27 (22-32) mmol/L BUN 14 (9-20) mg/dL Creatinine 1.25 (0.66-1.25) mg/dL Estimated GFR > 60 (>60) mL/min BUN/Creatinine Ratio 11.2 (6-22) Glucose 90 (80-110) mg/dL Calcium 8.5 (8.4-10.2) mg/dL Magnesium 2.2 (1.6-2.3) mg/dL Total Bilirubin 0.6 (0.2-1.3) mg/dL AST 33 (17-59) IU/L ALT 26 (<50) IU/L Alkaline Phosphatase 93 (38-126) U/L Total Creatine Kinase 288 H (55-170) U/L Troponin I < 0.012 < 0.012 (0.01-0.034) ng/mL NT-Pro-B Natriuret Pep 146 H (<125) pg/mL Total Protein 6.9 (6.3-8.2) g/dL Albumin 4.1 (3.5-5.0) g/dL Globulin 2.8 (1.7-4.1) g/dL Albumin/Globulin Ratio 1.5 (1.0-2.8) Lipase 30 (23-300) U/L Chlamy pneumoniae PCR Not detected (Not Detect) Adenovirus (PCR) Not detected (Not Detect) B.parapertussis DNA PCR Not detected (Not Detecte) Coronavirus OC43 (PCR) Not detected (Not Detect) Coronavirus HKU1 (PCR) Not detected (Not Detect) Coronavirus 229E (PCR) Not detected (Not Detect) SARS-CoV-2 (PCR) Not detected (Not Detecte) Coronavirus NL63 (PCR) Not detected (Not Detect) Human Metapneumovir PCR Not detected (Not Detect) Influenza Type A (PCR) Not detected (Not Detect) Influenza Type B (PCR) Not detected (Not Detect) M. pneumoniae (PCR) Not detected (Not Detect) Parainfluenza 1 (PCR) Not detected (Not Detect) Parainfluenza 2 (PCR) Not detected (Not Detect) Parainfluenza 3 (PCR) Not detected (Not Detect) Parainfluenza 4 (PCR) Not detected (Not Detect) RSV (PCR) Not detected (Not Detect) Entero/Rhino (PCR) Not detected (Not Detect) Imaging Data Chest x-ray: Radiologist's Impression: Close Chest X-Ray (Signed) Rikki George - 12/25/23 Launch?Image [address] [address] XRay Report Signed Patient: Mahendra Norwood MR#: [id number] : 1960 Acct:[id number] Age/Sex: 63 / M Date of Service: 12/25/23 Loc: ED Accession Number: [id number] Procedure: XR chest 1V Ordering Provider: Buck Stein MD PROCEDURE: XR CHEST 1V INDICATIONS: chest pain TECHNIQUE: One view of the chest was acquired. COMPARISON: [facility], , XR CHEST 1V, 12/05/2023, 0:04. FINDINGS: Surgical changes and devices: None. Lungs and pleura: Lungs are clear. No pleural effusions or pneumothorax. Mediastinum: Mediastinal contours appear normal. Heart size is normal. Bones and chest wall: No suspicious bony lesions. Overlying soft tissues appear unremarkable. IMPRESSION: No acute cardiopulmonary pathology. Dictated by: Rikki George M.D. on 12/25/2023 at 19:36 Approved by: Rikki George M.D. on 12/25/2023 at 19:36 CT Angio Chest: Radiologist's Impression: [address] [address] [address] Scan Report Signed Patient: Mahendra Norwood MR#: [id number] : 1960 Acct:[id number] Age/Sex: 63 / M Date of Service: 12/25/23 Loc: ED Accession Number: [id number] Procedure: CT angio chest PE protocol Ordering Provider: Buck Stein MD PROCEDURE: CT ANGIO CHEST PE PROTOCOL INDICATIONS: chest pain, hypoxia, eval for PE TECHNIQUE: After the administration of intravenous contrast, 2 mm thick sections acquired from the pulmonary apices to the posterior costophrenic angles. 3-dimensional maximum intensity projection (MIP) coronal and sagittal reformats were then acquired through the thorax. For radiation dose reduction, the following was used: automated exposure control, adjustment of mA and/or kV according to patient size. COMPARISON: [facility], CT, CT ANGIO CHEST PE PROTOCOL, 11/02/2023, 23:06. FINDINGS: Image quality: Diagnostic. Pulmonary arteries: Pulmonary arteries are normal in size, and demonstrate no intraluminal filling defects to suggest central pulmonary embolism. Lower Neck: No enlarged lymph nodes. Thyroid: No thyroid nodules which require sonographic follow up, per consensus guidelines. Axillae: No enlarged lymph nodes. Chest Wall: Unremarkable. Bones: Unremarkable. Lungs and Pleura: No pneumothorax or pleural effusions. No consolidation or suspicious nodules. Heart: Heart size is normal. No pericardial effusion. Thoracic Vessels: No aortic aneurysm. Mediastinum and Liat: No enlarged lymph nodes. Esophagus: No wall thickening. No hiatal hernia. Upper Abdomen: Visualized upper abdomen solid organs and bowel loops appear normal. IMPRESSION: No pulmonary embolus. No acute cardiopulmonary process. Approved by: Laney Morton M.D.,Ph.D. on 12/25/2023 at 22:44 ECG Data Interpretation: Sinus bradycardia with rate 55, movement baseline artifact noted, but no obvious ST segment elevation or depression changes, limited study. MA 200, QRS 96, QTC 419. MDM Narrative Medical decision making narrative: 63-year-old male with history of recurrent chest pain, on methadone for chronic pain, had cardiac catheterization [place] last month November 2023 requiring no coronary interventions, seen later in November with chest pain with negative workup and was sent home, now with chest discomfort since this morning left sided left upper, not usually on oxygen, hypoxia noted. thinks he has had blood clots before, no leg pain or swelling symptoms, no recent trauma. Left arm is not swollen from recent procedure last month. Screening EKG without obvious ischemic changes, initial troponin negative. Chest x-ray unremarkable. Aspirin given. First nitroglycerin given, low blood pressure, IV fluids, no further nitroglycerin. IV morphine 2 mg when blood pressure recovered, chest pain significantly decreased. D-dimer 400s, not elevated, BNP normal, chest x-ray unremarkable, respiratory panel unremarkable, moving air well, no obvious wheezes, chest discomfort. Albuterol SVN, did not change chest discomfort symptoms. IV morphine, chest pain resolved. CT angiogram further evaluation PE protocol patient agreeable. CT angiogram chest showed no pulmonary embolus, no acute changes. Interval repeat troponin also negative. Further evaluation as outpatient, discharged home with . Return precautions discussed Critical Care Time Critical Care Time Critical Care Time: Yes Total Critical Care Time: 31 Attestation: The high probability of a clinically significant, sudden or life threatening deterioration of the [cardiopulmonary] system(s) required my full and direct attention, intervention and personal management. The aggregate critical care time was [31] minutes. This time is in addition to time spent performing reported procedures but includes the following: [x] Data Review and interpretation [x] Patient assessment and monitoring of vital signs [x] Documentation [x] Medication orders and management Discharge Plan Departure Patient Disposition: Home Clinical Impression: Chest pain Activity Restrictions/Additional Instructions: Left chest pain unclear cause. Heart catheterization November 2023 in [place] did not show coronary artery disease to warrant any interventions. Tonight EKG showed no obvious ischemic changes, blood testing not showing evidence of heart attack at this time. CT angiogram of the chest showed normal arteries including the aorta, and no acute changes, no blood clots to the lungs. Take Tylenol and or Motrin as needed for chest discomfort. Follow up with your regular provider in the next couple of days. Continue to take your methadone for chronic pain. Return to this/nearest emergency department for any change worsening symptoms or any concerns prior Prescriptions: No Action methadone 10 mg Tablet 75 mg PO DAILY tamsulosin [Flomax] 0.4 mg Capsule 0.4 mg PO BEDTIME lisinopril 30 mg Tablet 30 mg PO BEDTIME Referrals: Miscellaneous,DoctorMD [Primary Care Provider] - Stand Alone Forms: Patient Portal/API
[2023-12-25 19:52] LABS: Alanine Aminotransferase 26 IU/L (<50); Albumin 4.1 g/dL (3.5-5.0); Albumin Globulin Ratio 1.5 (1.0-2.8); Alkaline Phosphatase 93 U/L (38-126); Aspartate Aminotransferase 33 IU/L (17-59); BUN Creatinine Ratio 11.2 (6-22); Bilirubin Total 0.6 mg/dL (0.2-1.3); Blood Urea Nitrogen 14 mg/dL (9-20); Calcium 8.5 mg/dL (8.4-10.2); Carbon Dioxide 27 mmol/L (22-32); Chloride 105 mmol/L (98-107); Creatine Kinase 288 U/L (55-170); Estimated Glomerular Filt Rate > 60 mL/min (>60); Globulin 2.8 g/dL (1.7-4.1); Glucose 90 mg/dL (80-110); HEMOLYSIS < 15 (0-50); Lipase 30 U/L (23-300); Magnesium 2.2 mg/dL (1.6-2.3); Potassium 3.9 mmol/L (3.4-5.1); Sodium 136 mmol/L (137-145); Total Protein 6.9 g/dL (6.3-8.2)
[2023-12-25] MEDS: NITROGLYCERIN 0.4 MG SL TAB SL (19:56)
[2023-12-25 20:04] LABS: NT-proBNP (BNP-Adult 18+) 146 pg/mL (<125); Troponin I < 0.012 ng/mL (0.01-0.034)
--- NOTE | 2023-12-25 20:07 | PC.NURSE ---
gave first dose of nitro and patients systolic pressure dropped 15 points to 105/61, pain remained at 7/[address] Stein notified
[2023-12-25] MEDS: MORPHINE 2 MG/ML INJ IV (20:19)
[2023-12-25] MEDS: SODIUM CHLORIDE 0.9% 1,000 ML 1000 ML IV (20:19)
[2023-12-25] MEDS: ONDANSETRON 4 MG/2 ML INJ IV (20:30)
[2023-12-25 21:13] LABS: D Dimer 418 ng/ml (<500)
--- NOTE | 2023-12-25 21:41 | DI.CT.S_ITS ---
PROCEDURE: CT ANGIO CHEST PE PROTOCOL INDICATIONS: chest pain, hypoxia, eval for PE TECHNIQUE: After the administration of intravenous contrast, 2 mm thick sections acquired from the pulmonary apices to the posterior costophrenic angles. 3-dimensional maximum intensity projection (MIP) coronal and sagittal reformats were then acquired through the thorax. For radiation dose reduction, the following was used: automated exposure control, adjustment of mA and/or kV according to patient size. COMPARISON: [facility], CT, CT ANGIO CHEST PE PROTOCOL, 11/02/2023, 23:06. FINDINGS: Image quality: Diagnostic. Pulmonary arteries: Pulmonary arteries are normal in size, and demonstrate no intraluminal filling defects to suggest central pulmonary embolism. Lower Neck: No enlarged lymph nodes. Thyroid: No thyroid nodules which require sonographic follow up, per consensus guidelines. Axillae: No enlarged lymph nodes. Chest Wall: Unremarkable. Bones: Unremarkable. Lungs and Pleura: No pneumothorax or pleural effusions. No consolidation or suspicious nodules. Heart: Heart size is normal. No pericardial effusion. Thoracic Vessels: No aortic aneurysm. Mediastinum and Liat: No enlarged lymph nodes. Esophagus: No wall thickening. No hiatal hernia. Upper Abdomen: Visualized upper abdomen solid organs and bowel loops appear normal. IMPRESSION: No pulmonary embolus. No acute cardiopulmonary process. Approved by: Laney Morton M.D.,Ph.D. on 12/25/2023 at 22:44
[2023-12-25 21:46] LABS: Troponin I < 0.012 ng/mL (0.01-0.034)
[2023-12-25] MEDS: ALBUTEROL 2.5 MG/3 ML NEB (ADULT) INH (22:09)
[2023-12-25 22:28] LABS: Adenovirus Not Detected (Not Detect); B. parapertussis Not Detected (Not Detecte); Bordetella pertussis Not Detected (Not Detect); Chlamydophila pneumoniae Not Detected (Not Detect); Coronavirus 229E Not Detected (Not Detect); Coronavirus HKU1 Not Detected (Not Detect); Coronavirus NL 63 Not Detected (Not Detect); Coronavirus OC43 Not Detected (Not Detect); Human Metapneumovirus Not Detected (Not Detect); Human Rhinovirus/Enterovirus Not Detected (Not Detect); Influenza A Not Detected (Not Detect); Influenza B Not Detected (Not Detect); Mycoplasma pneumoniae Not Detected (Not Detect); Parainfluenza Virus 1 Not Detected (Not Detect); Parainfluenza Virus 2 Not Detected (Not Detect); Parainfluenza Virus 3 Not Detected (Not Detect); Parainfluenza Virus 4 Not Detected (Not Detect); Respiratory Syncytial Virus Not Detected (Not Detect); SARS- CoV-2 Not Detected (Not Detecte)
--- NOTE | 2023-12-25 23:25 | PC.NURSE ---
BAKERY WORKER note: Ambulated patient around department with a pulse oximeter. Patient was 94% on room air. Told Annabella Astorga RN about it.
== END 2023-12-25 23:38 | disposition home or self-care (01) ==
PROVIDERS: Emergency Provider Emergency Medicine
DX: R07.9 Chest pain, unspecified (principal); R10.12 Left upper quadrant pain
CPT/HCPCS: 36415; 71045; 71275; 80053; 82550; 83690; 83735; 83880; 84484; 85025; 85379; 85610; 85730; 87633; 93005; 94640; 96374; 96375; 99284; 99285; J2270; J2405; J7613; Q9967

== ENCOUNTER 2024-02-07 22:06 | Emergency (ER) | payer BC, OTHER, MEDICAID, SELFPAY ==
[2023-11-07 21:09] VITALS: BMI 33.2
[2024-02-07 22:17] VITALS: BP 138/65; PULSE 53; RESP 16; TEMP 37.1; O2SAT 96; BMI 32.5
--- NOTE | 2024-02-07 22:22 | DI.RAD.S_ITS ---
PROCEDURE: XR HAND LT MIN 3V INDICATIONS: Injury/pain/wound TECHNIQUE: 3 views of the hand(s) acquired. COMPARISON: None. FINDINGS: Bones: No fractures or dislocations. Carpal bones are normally aligned. No suspicious bony lesions. Soft tissues: No suspicious soft tissue calcifications. IMPRESSION: No acute bony abnormality. Dictated by: Yony Adams M.D. on 02/07/2024 at 22:39 Approved by: Yony Adams M.D. on 02/07/2024 at 22:40
--- NOTE | 2024-02-07 22:52 | ED.WOUNDLAC ---
HPI - Wound/Laceration General Chief Complaint: Wound/Laceration Stated Complaint: lt hand injury, possible infection Time Seen by Provider: 02/07/24 22:32 Source: patient Mode of arrival: Ambulatory History of Present Illness HPI narrative: Patient is a 64-year-old male who stated that a couple days ago he injured his left middle finger last evening when a piece of wood fell on it. He states that today he was noticed increased redness and swelling and then this morning noticed drainage from the knuckle on the back of his left middle finger. He is right-hand dominant. He states it has been draining all day. Also feels like the back of his hand is also swollen. Related Data Home Medications Medication Instructions Recorded Confirmed lisinopril 30 mg tablet 30 mg PO BEDTIME 11/02/23 11/07/23 methadone 10 mg tablet 75 mg PO DAILY 11/02/23 11/07/23 tamsulosin 0.4 mg capsule (Flomax) 0.4 mg PO BEDTIME 11/02/23 11/07/23 Previous Rx's Medication Instructions Recorded doxycycline hyclate 100 mg capsule 100 mg PO BID 7 days #14 caps 02/07/24 Allergies Allergy/AdvReac Type Severity Reaction Status Date / Time No Known Drug Allergies Allergy Verified 11/20/23 18:21 Review of Systems Constitutional Constitutional: Reports system reviewed and no additional complaints, except as documented Musculoskeletal Musculoskeletal: Reports system reviewed and no additional complaints, except as documented Integumentary/Breasts Skin/Breast: Reports system reviewed and no additional complaints, except as documented Neurologic Neurologic: Reports system reviewed and no additional complaints, except as documented Patient History Medical History Methadone maintenance therapy patient Hypertension BPH (benign prostatic hyperplasia) Chronic back pain Social History household members: spouse Smoking Status: Never smoker alcohol intake: never Smoking Status: Never smoker alcohol intake frequency: 0-2 drinks per day Substance Use Type: does not use Exam Initial Vital Signs Initial Vital Signs: Vital Signs Temperature 98.7 F 02/07/24 22:17 Pulse Rate 53 L 02/07/24 22:17 Respiratory Rate 16 02/07/24 22:17 Blood Pressure 138/65 02/07/24 22:17 Pulse Oximetry 96 02/07/24 22:17 Oxygen Delivery Method Room Air 02/07/24 22:17 Cardio Pulses: radial pulses present on the left Skin Other: Patient has areas of what appeared to be infection over the dorsum of the left middle finger specifically over the PIP joint. Extrem Other: Swelling of the left middle finger in between the MCP and PIP joint. Course Orders Ordered: ED Orders 02/07/24 22:22 XR hand LT min 3V Stat 02/07/24 22:50 Wound Culture and Gram Stain Stat Discontinued Medications Doxycycline Hyclate (Doxycycline Hyclate 100 Mg Tablet) 100 mg PO NOW ONE Stop: 02/07/24 22:54 Last Admin: 02/07/24 22:58 Dose: 100 mg Documented By: HNGlory Vital Signs Vital signs: Vital Signs - 8 hr 02/07/24 22:17 02/07/24 23:06 Temperature 98.7 F Pulse Rate 53 L 47 L Respiratory Rate 16 15 Blood Pressure 138/65 130/62 Pulse Oximetry 96 93 Oxygen Delivery Method Room Air Room Air MDM - Wound/Laceration Imaging Data Extremity x-ray #1: Radiologist's Impression: PROCEDURE: XR HAND LT MIN 3V INDICATIONS: Injury/pain/wound TECHNIQUE: 3 views of the hand(s) acquired. COMPARISON: None. FINDINGS: Bones: No fractures or dislocations. Carpal bones are normally aligned. No suspicious bony lesions. Soft tissues: No suspicious soft tissue calcifications. IMPRESSION: No acute bony abnormality. [facility] Narrative Medical decision making narrative: Small area of drainage over the PIP joint of the left middle finger. This was cultured. His findings are consistent with a cellulitis. Will place on antibiotics. X-ray showed no signs of fracture. Low suspicion for septic joint. He was given 1st dose of antibiotics here in the ER. Prescription was sent to the pharmacy of his choice. He was given return precautions and follow-up instructions. He expressed understanding and agreement with plan. Discharge Plan Departure Patient Disposition: Home Clinical Impression: Cellulitis Instructions: DI for Cellulitis -- Adult Activity Restrictions/Additional Instructions: You can wash your hands like normal. Take the antibiotics as directed. Return to the emergency department for new or worsening symptoms. Prescriptions: New doxycycline hyclate 100 mg capsule 100 mg PO BID 7 Days Qty: 14 0RF No Action methadone 10 mg Tablet 75 mg PO DAILY tamsulosin [Flomax] 0.4 mg Capsule 0.4 mg PO BEDTIME lisinopril 30 mg Tablet 30 mg PO BEDTIME Referrals: Miscellaneous,Doctor, MD [Primary Care Provider] - Stand Alone Forms: Patient Portal/API
[2024-02-07] MEDS: DOXYCYCLINE HYCLATE 100 MG TABLET PO (22:58)
[2024-02-07 23:06] VITALS: BP 130/62; PULSE 47; RESP 15; O2SAT 93
== END 2024-02-07 23:07 | disposition home or self-care (01) ==
PROVIDERS: Emergency Provider Emergency Medicine
DX: L03.012 Cellulitis of left finger (principal)
CPT/HCPCS: 73130; 87070; 87075; 87077; 87147; 87205; 99283

== ENCOUNTER 2024-02-18 18:17 | Emergency (ER) | payer BC, OTHER, MEDICAID, SELFPAY ==
[2023-11-07 21:09] VITALS: BMI 33.2
[2024-02-18 18:26] VITALS: BP 151/77; PULSE 68; RESP 18; TEMP 37; O2SAT 95; BMI 32.5
--- NOTE | 2024-02-18 20:45 | PC.NURSE ---
pt c/o continued infection in the left hand after round of antibiotics
--- NOTE | 2024-02-18 21:18 | ED.SKABFB ---
HPI - Skin/Abscess/Foreign Bdy General Chief complaint: Skin/Abscess/Foreign Body Stated complaint: swollen possibly infected left hand Time Seen by Provider: 02/18/24 20:43 History of Present Illness HPI narrative: 64-year-old male presents for evaluation of wounds on his hands. 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 His wounds were cultured and he was discharged with antibiotics. He states that he has completed the antibiotics but he still has wounds on his hands and he was concerned that they are still infected. He states that his hand will throb if he keeps his hand down too long. Related Data Home Medications Medication Instructions Recorded Confirmed lisinopril 30 mg tablet 30 mg PO BEDTIME 11/02/23 11/07/23 methadone 10 mg tablet 75 mg PO DAILY 11/02/23 11/07/23 tamsulosin 0.4 mg capsule (Flomax) 0.4 mg PO BEDTIME 11/02/23 11/07/23 Previous Rx's Medication Instructions Recorded sulfamethoxazole 800 1 tab PO BID #10 tabs 02/18/24 mg-trimethoprim 160 mg tablet Allergies Allergy/AdvReac Type Severity Reaction Status Date / Time No Known Drug Allergies Allergy Verified 11/20/23 18:21 Patient History Medical History Methadone maintenance therapy patient Hypertension BPH (benign prostatic hyperplasia) Chronic back pain Social History household members: spouse Smoking Status: Never smoker alcohol intake: never Smoking Status: Never smoker alcohol intake frequency: 0-2 drinks per day Substance Use Type: does not use Exam Initial Vital Signs Initial Vital Signs: Vital Signs Temperature 98.6 F 02/18/24 18:26 Pulse Rate 68 02/18/24 18:26 Respiratory Rate 18 02/18/24 18:26 Blood Pressure 151/77 H 02/18/24 18:26 Pulse Oximetry 95 02/18/24 18:26 Oxygen Delivery Method Room Air 02/18/24 18:26 Const: Awake, alert, no acute distress, nontoxic appearing MSK: Atraumatic, full range of motion, pulses equal Skin: Warm, Dry, paronychia R index finger, scabs middle and index finger L hand. No obvious surrounding erythema or fluctuance Neuro: AO x3, CN II-XII grossly intact, moves all extremities Course Orders Ordered: ED Orders 02/18/24 21:19 XR hand LT min 3V Stat Vital Signs Vital signs: Vital Signs - 8 hr 02/18/24 18:26 Temperature 98.6 F Pulse Rate 68 Respiratory Rate 18 Blood Pressure 151/77 H Pulse Oximetry 95 Oxygen Delivery Method Room Air MDM - Skin/Abscess/Foreign Bdy MDM Narrative Medical decision making narrative: Well-appearing patient with concerned that wounds on his hands are persistent and not correctly healing. 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 Patient has paronychia at the base of his R index finger, some wouund on his L hand in various stages of healing. I do not appreciate any obvious infection, however based out of precaution antibiotics will be continued for several extra days. Culture results reviewed, antibiotics sent to pharmacy of choice. Discharge Plan Departure Patient Disposition: Home Clinical Impression: Cellulitis Instructions: DI for Cellulitis -- Adult Activity Restrictions/Additional Instructions: Your hand x-ray appears normal. I do not have a strong suspicion for an underlying abscess, but to cover you for cellulitis and antibiotic has been sent to your pharmacy. I reviewed the sensitivities and the bacteria is susceptible to this antibiotic. Prescriptions: New sulfamethoxazole-trimethoprim 800-160 mg tablet 1 tab PO BID Qty: 10 0RF No Action methadone 10 mg Tablet 75 mg PO DAILY tamsulosin [Flomax] 0.4 mg Capsule 0.4 mg PO BEDTIME lisinopril 30 mg Tablet 30 mg PO BEDTIME Referrals: Miscellaneous,Doctor, MD [Primary Care Provider] - Stand Alone Forms: Patient Portal/API
--- NOTE | 2024-02-18 21:19 | DI.RAD.S_ITS ---
PROCEDURE: XR HAND LT MIN 3V INDICATIONS: L MIDDLE AND RING FINGER PERSISTENT SWELLING TECHNIQUE: 3 views of the hand(s) acquired. COMPARISON: [facility], CR, XR HAND LT MIN 3V, 02/07/2024, 22:23. FINDINGS: Bones: No fractures or dislocations. Carpal bones are normally aligned. No suspicious bony lesions. Soft tissues: No suspicious soft tissue calcifications. IMPRESSION: No acute bony abnormality. Dictated by: Dennise Jordan M.D. on 02/18/2024 at 22:34 Approved by: Dennise Jordan M.D. on 02/18/2024 at 22:34
[2024-02-18 22:54] VITALS: BP 160/81; PULSE 57; RESP 14; O2SAT 97
== END 2024-02-18 22:59 | disposition home or self-care (01) ==
PROVIDERS: Emergency Provider Emergency Medicine
DX: L03.114 Cellulitis of left upper limb (principal)
CPT/HCPCS: 73130; 99281; 99283

== ENCOUNTER 2024-03-11 23:24 | Emergency (ER) | payer MEDICARE, BC, MEDICAID, SELFPAY ==
[2023-11-07 21:09] VITALS: BMI 33.2
[2024-03-11 23:37] VITALS: BP 159/84; PULSE 56; RESP 18; TEMP 37.3; O2SAT 93; BMI 31.8
--- NOTE | 2024-03-12 00:07 | ED.FALL ---
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 However since that time he has had headache, neck pain, upper back pain, mid lower back pain, left lower quadrant abdominal pain, right lower chest discomfort, left ankle pain. No nausea or vomiting. No weakness to face arm or leg. No other extremity injuries recalled. He does not take blood thinner medications. Related Data Home Medications Medication Instructions Recorded Confirmed lisinopril 30 mg tablet 30 mg PO BEDTIME 11/02/23 11/07/23 methadone 10 mg tablet 75 mg PO DAILY 11/02/23 11/07/23 tamsulosin 0.4 mg capsule (Flomax) 0.4 mg PO BEDTIME 11/02/23 11/07/23 Previous Rx's Medication Instructions Recorded sulfamethoxazole 800 1 tab PO BID #10 tabs 02/18/24 mg-trimethoprim 160 mg tablet cephalexin 500 mg capsule 500 mg PO QID 7 days #28 caps 03/12/24 methocarbamol 500 mg tablet 500 mg PO TID 7 days #21 tabs 03/12/24 Allergies Allergy/AdvReac Type Severity Reaction Status Date / Time No Known Drug Allergies Allergy Verified 11/20/23 18:21 Review of Systems Review of Systems Narrative: see HPI Patient History Medical History Methadone maintenance therapy patient Hypertension BPH (benign prostatic hyperplasia) Chronic back pain Social History household members: spouse Smoking Status: Never smoker alcohol intake: never Smoking Status: Never smoker alcohol intake frequency: 0-2 drinks per day Substance Use Type: does not use Exam Narrative Exam Narrative: GENERAL: Well-developed patient, in mild distress. HEAD: Atraumatic. Normocephalic. EYES: Pupils equal round and reactive. Extraocular motions intact. No scleral icterus. No injection or drainage. ENT: Nose without bleeding, purulent drainage. Throat without erythema, tonsillar hypertrophy or exudate. Airway patent. NECK: Trachea midline. Non tender CARDIOVASCULAR: Regular rate and rhythm without murmurs, gallops, or rubs. RESPIRATORY: Clear to auscultation. Breath sounds equal bilaterally. No wheezes, rales, or rhonchi. GASTROINTESTINAL: Abdomen soft, old well-healed scars, some tenderness left mid quadrant left lower quadrant, no guarding or rebound tenderness, nondistended. EXTREMITIES: Left ankle tenderness lateral malleolus without gross deformity. Left forearm redness consistent with cellulitis BACK: Nontender without deformity or crepitance. No flank tenderness. Tenderness to upper lumbar lower thoracic paraspinal musculature, not tender midline. NEURO: AOx3. Motor functions grossly nonfocal SKIN: No rash or erythema of visible areas Initial Vital Signs Initial Vital Signs: Vital Signs Temperature 99.1 F 03/11/24 23:37 Pulse Rate 56 L 03/11/24 23:37 Respiratory Rate 18 03/11/24 23:37 Blood Pressure 159/84 H 03/11/24 23:37 Pulse Oximetry 93 03/11/24 23:37 Oxygen Delivery Method Room Air 03/11/24 23:37 Course Orders Ordered: ED Orders 03/12/24 00:50 CT Trauma Chest Abdomen Pelvis Stat 03/12/24 00:51 CT cervical spine wo con Stat CT head/brain wo con Stat 03/12/24 00:52 XR ankle LT min 3V Stat 03/12/24 01:15 Complete Blood Count AUTO DIFF Stat Comprehensive Metabolic Panel Stat Lipase Stat Prothrombin Time INR Stat 03/12/24 03:33 Urinalysis and Microscopic Stat Urine Drug Screen, Rapid Stat Discontinued Medications Cephalexin HCl (Cephalexin 250 Mg Capsule) 500 mg PO NOW ONE Stop: 03/12/24 03:28 Last Admin: 03/12/24 03:33 Dose: 500 mg Documented By: Sodium Chloride (Normal Saline 0.9%) 1,000 mls @ 150 mls/hr IV CONT ALON Last Infusion: 03/12/24 03:36 Dose: Infused Documented By: Admin: 03/12/24 03:17 Dose: 150 mls/hr Documented By: Vital Signs Vital signs: Vital Signs - 8 hr 03/11/24 23:37 03/12/24 03:36 Temperature 99.1 F Pulse Rate 56 L 42 L Respiratory Rate 18 16 Blood Pressure 159/84 H 164/85 H Pulse Oximetry 93 94 Oxygen Delivery Method Room Air fall Lab Data Attestation: I reviewed the patient's lab results. 03/12/24 01:15 03/12/24 01:15 Labs: Lab Results 03/12/24 03/12/24 03/12/24 Range/Units 01:15 03:33 03:33 WBC 7.3 (4.5-11.0) X10^3/uL RBC 4.89 (4.5-5.9) X10^6/uL Hgb 13.2 L (13.5-17.5) g/dL Hct 40.0 L (41-53) % MCV 81.9 (80-100) fL MCH 27.1 (26-34) PG MCHC 33.1 (30-36) % RDW 13.8 (11.6-14.8) % Plt Count 183 (150-400) X10^3/uL Neut % (Auto) 71.2 (50-75) % Lymph % (Auto) 18.3 L (25-40) % [place] % (Auto) 6.8 (3-14) % Eos % (Auto) 2.9 (2-4) % Baso % (Auto) 0.8 (0-2) % Neut # (Auto) 5200 (0109-6315) /uL Lymph # (Auto) 1300 (4358-2228) /uL [place] # (Auto) 500 (0-900) /uL Eos # (Auto) 200 (0-450) /uL Baso # (Auto) 100 (0-100) /uL PT 11.9 (9.4-12.5) SECONDS INR 1.0 (0.9-1.3) Sodium 135 L (137-145) mmol/L Potassium 3.7 (3.4-5.1) mmol/L Chloride 105 (98-107) mmol/L Carbon Dioxide 27 (22-32) mmol/L BUN 16 (9-20) mg/dL Creatinine 1.14 (0.66-1.25) mg/dL Estimated GFR > 60 (>60) mL/min BUN/Creatinine Ratio 14.0 (6-22) Glucose 95 (80-110) mg/dL Calcium 8.8 (8.4-10.2) mg/dL Total Bilirubin 0.4 (0.2-1.3) mg/dL AST 27 (17-59) IU/L ALT 22 (<50) IU/L Alkaline Phosphatase 82 (38-126) U/L Total Protein 6.3 (6.3-8.2) g/dL Albumin 3.6 (3.5-5.0) g/dL Globulin 2.7 (1.7-4.1) g/dL Albumin/Globulin Ratio 1.3 (1.0-2.8) Lipase 27 (23-300) U/L Urine Color Yellow Urine Appearance Clear Urine pH 7.0 TNP (4.5-8.0) Ur Specific [place] <=1.005 (1.000-1.035) Urine Protein Negative (Negative) Urine Glucose (UA) Negative (Negative) g/dL Urine Ketones Negative (NEGATIVE) Urine Occult Blood Negative (Negative) Urine Nitrate Negative (Negative) Urine Bilirubin Negative (NEGATIVE) Urine Urobilinogen 0.2 (0.2) E.U./dL Ur Leukocyte Esterase Negative (NEGATIVE) Urine RBC None seen (0-5/HPF) Urine WBC None seen (0-5/HPF) Ur Squamous Epith Cells 0-1 /hpf (0-5/HPF) Urine Bacteria None seen (None) Ur Culture Indicated? Cult not indicated Vol Urine Centrifuged 10ml (spun) U Opiates 300ng/mL cut Negative (Negative) Ur Oxycodone Screen Negative (Negative) Urine Methadone Screen Positive H (Negative) Ur Barbiturates Screen Negative (Negative) U Tricyclic Antidepress Negative (Negative) Ur Phencyclidine Scrn Negative (Negative) Ur Amphetamines Screen Negative (Negative) U Methamphetamines Scrn Negative (Negative) Ur MDMA Scrn (Ecstasy) Negative (Negative) U Benzodiazepines Scrn Negative (Negative) Urine Cocaine Screen Negative (Negative) U Marijuana (THC) Screen Negative (Negative) Urine Specific [place] TNP Ur Creatinine TNP MDM Narrative Medical decision making narrative: 64-year-old with tumble rolling fall down a mossy rock slope about 20 ft, 2 days ago, was not initially evaluated, has numerous areas of increasing pain including his head, neck, back, left ankle, left abdomen, right lower chest. Afebrile, sirs screen negative. No respiratory distress. Unremarkable triage vitals. CT head, C-spine, chest, abdomen, pelvis imaging. X-ray left ankle. He declined pain medications when offered X-ray left ankle. Impressions: ?No acute traumatic injury is identified. Posterior calcaneal spur.? See teleradiology report CT head without contrast. Impression: ?No acute intracranial abnormality.? See teleradiology report CT cervical spine. Impressions: ?Multilevel spondylotic changes of the cervical spine without acute traumatic injury. See teleradiology report CT chest abdomen and pelvis with IV contrast. Impressions: ?No acute traumatic injury within the chest abdomen and pelvis. No pulmonary embolism aortic dissection or aneurysm. See teleradiology report Left forearm cellulitis changes, PO Keflex, Rx sent to pharmacy for 7d course. Continue taking methadone as prescribed. Recheck symptoms 2 d with your PCP, return precautions discussed Discharge Plan Departure Patient Disposition: Home Clinical Impression: Injury resulting from fall from height, Left ankle strain, Cervical strain, Strain of thoracic spine, Strain of lumbar spine, Abdominal contusion, Cellulitis of left forearm Activity Restrictions/Additional Instructions: Recent fall down a slippery embankment a proximally 20 ft by report. Persisting neck back pain, some abdominal discomfort as well, also left ankle pain. He also has some redness of the left forearm that on exam appears to look consistent with cellulitis skin infection, unclear if related to the fall or incidental. No fever on triage. You had trauma imaging including your left ankle x-rays, CT scanning of the head and spine and chest and abdomen and pelvis. No identified traumatic sequelae. Take oral Keflex antibiotic for your cellulitis skin infection, prescription sent to your pharmacy. Take [id number] pain medications, it is noted that you have methadone chronic pain as well, but you could consider use of ibuprofen and/or Tylenol as well if needed. Consider trial muscle relaxant for neck and back discomfort after your recent fall. Prescription sent for methocarbamol muscle relaxant to your pharmacy as well. Take medications as directed. Recheck with your regular doctor in the next couple of days to reassess for new symptoms, also to evaluate progress of your forearm skin cellulitis. Return earlier if any change worsening symptoms or any concerns prior Prescriptions: New cephalexin 500 mg capsule 500 mg PO QID 7 Days Qty: 28 0RF methocarbamol 500 mg tablet 500 mg PO TID 7 Days Qty: 21 0RF No Action methadone 10 mg Tablet 75 mg PO DAILY tamsulosin [Flomax] 0.4 mg Capsule 0.4 mg PO BEDTIME lisinopril 30 mg Tablet 30 mg PO BEDTIME sulfamethoxazole-trimethoprim 800-160 mg tablet 1 tab PO BID Qty: 10 0RF Referrals: Miscellaneous,Doctor, MD [Primary Care Provider] - Stand Alone Forms: Patient Portal/API
--- NOTE | 2024-03-12 00:30 | PC.NURSE ---
Dr Stein in to evaluate pt
--- NOTE | 2024-03-12 00:50 | DI.CT.S_ITS ---
PROCEDURE: CT TRAUMA CHEST ABDOMEN PELVIS INDICATIONS: blunt trauma/fall TECHNIQUE: After the administration of intravenous contrast, 5 mm thick sections acquired from the lung apices to the symphysis. 2.5 mm thick coronal and sagittal reformats were acquired. Additional 7 mm thick coronal maximum intensity projection (MIP) reformats acquired through the lungs. Optional 10-minute delayed imaging may be performed from the kidneys to the bladder. For radiation dose reduction, the following was used: automated exposure control, adjustment of mA and/or kV according to patient size. COMPARISON: None. FINDINGS: Image quality: Diagnostic. CHEST: Lower Neck: No enlarged lymph nodes. Thyroid: No thyroid nodules which require sonographic evaluation. Axillae: No enlarged lymph nodes. Chest Wall: No subcutaneous gas. Lungs and Pleura: No pulmonary contusions or lacerations. No acute airspace opacities. No pneumothorax or hemothorax. Incidentally noted of a 3 mm solid nodule in lateral right upper lobe series 7, image 90. Mild dependent atelectasis in posterior aspect of bilateral lung mario are seen. Mediastinum: No mediastinal hematomas. Heart size is mildly enlarged. No pericardial effusion. Thoracic aorta and pulmonary arteries demonstrate normal size and enhancement. No mediastinal or hilar adenopathy. Esophagus is normal in caliber. No hiatal hernia. ABDOMEN: Liver: No lacerations. Gallbladder: Gallbladder is surgically absent. Biliary ducts: No biliary dilation. Pancreas: Homogenous enhancement. Spleen: Homogenous enhancement without laceration or hematoma. Adrenal Glands: Symmetric enhancement. Kidneys and Ureters: Symmetric enhancement. No hydronephrosis. No solid mass. No complex renal cystic lesion which requires follow up. Stomach and Bowel: Normal colonic caliber, without significant wall thickening. Sigmoid diverticulosis without CT evidence of acute diverticulitis. Peritoneum: No abnormal intraperitoneal fluid. No free air. Ventral Wall: No hernia. Abdominal Nodes: No retroperitoneal or mesenteric adenopathy by size criteria. Vessels: Aorta and inferior vena cava are normal in size. PELVIS: Pelvic Organs: Enlarged prostate gland with mass effect on floor of urinary bladder is seen.. Bladder: Mild diffuse bladder wall thickening is noted. Pelvic Nodes: No enlarged lymph nodes. Miscellaneous: No inguinal hernias are seen. Bones: Pelvic ring and hip joints appear intact. No displaced rib fractures. No acute vertebral body compression fracture. IMPRESSION: 1. No evidence of traumatic injury to the chest, abdomen or pelvis. 2. Incidental findings as described above including a tiny 3 mm right upper lobe nodule which can be followed with CT chest in 12 months. No significant discrepancies from preliminary reading. Dictated by: Rikki George M.D. on 03/12/2024 at 8:36 Approved by: Rikki George M.D. on 03/12/2024 at 8:44
--- NOTE | 2024-03-12 00:51 | DI.CT.S_ITS ---
PROCEDURE: CT CERVICAL SPINE WO CON INDICATIONS: Trauma TECHNIQUE: Noncontrast 3 mm thick sections acquired from the skull base to the T4 level. Sagittal and coronal reformats were then constructed. For radiation dose reduction, the following was used: automated exposure control, adjustment of mA and/or kV according to patient size. COMPARISON: None. FINDINGS: Image quality: Excellent. Bones: No fractures or dislocations. Visualized superior ribs are intact. Diffuse cervical spondylosis. Disc osteophyte complex at C5-C6 and C6-C7 results central canal stenosis at these levels. There is multilevel bony foraminal narrowing. Soft tissues: Prevertebral soft tissues are normal in thickness. No paravertebral hematomas. No apical pneumothoraces. IMPRESSION: No displaced fracture or traumatic subluxation. Cervical spondylosis. Comment: Final report is concordant with preliminary interpretation provided by [facility]. Dictated by: Manohar Grant M.D. on 03/12/2024 at 7:34 Approved by: Manohar Grant M.D. on 03/12/2024 at 7:36
--- NOTE | 2024-03-12 00:51 | DI.CT.S_ITS ---
PROCEDURE: CT HEAD/BRAIN WO CON INDICATIONS: Trauma TECHNIQUE: Noncontrast 4.5 mm thick angled axial sections acquired from the foramen magnum to the vertex, with coronal and sagittal reformats. For radiation dose reduction, the following was used: automated exposure control, adjustment of mA and/or kV according to patient size. COMPARISON: [facility], CT, CT HEAD/BRAIN WO CON, 11/02/2023, 21:04. FINDINGS: Image quality: Diagnostic. CSF spaces: Basal cisterns are patent. No extra-axial fluid collections. The ventricles are symmetric in size and shape. Brain: No intracranial bleeds or masses. There is cerebral volume loss for age, with resultant ventricular and sulcal prominence. There are periventricular and deep white matter chronic small vessel ischemic changes. There is intracranial internal carotid artery atherosclerosis. Skull and face: Calvarium and visualized facial bones appear intact, without suspicious lesions. Sinuses: Visualized sinuses and mastoids are clear. IMPRESSION: No evidence acute intracranial process. Comment: Final report is concordant with preliminary interpretation provided by [facility]. Dictated by: Manohar Grant M.D. on 03/12/2024 at 7:33 Approved by: Manohar Grant M.D. on 03/12/2024 at 7:34
--- NOTE | 2024-03-12 00:52 | DI.RAD.S_ITS ---
PROCEDURE: XR ANKLE LT MIN 3V INDICATIONS: fall 20ft down mossy embankment, ankle pain TECHNIQUE: 3 views of the ankle were acquired. COMPARISON: None. FINDINGS: Bones: No fractures or dislocations. Ankle mortise is normally aligned. Small dorsal calcaneal enthesophyte is seen. No suspicious bony lesions. Soft tissues: No tibiotalar joint effusion. Achilles tendon appears normal. IMPRESSION: No acute ankle fracture or dislocation. No discrepancies from preliminary reading. Dictated by: Rikki George M.D. on 03/12/2024 at 8:44 Approved by: Rikki George M.D. on 03/12/2024 at 8:45
[2024-03-12 01:33] LABS: Prothrombin Time 11.9 SECONDS (9.4-12.5)
[2024-03-12 01:43] LABS: Add Manual Diff / Slide Review NO; Basophils Absolute Auto 100 /uL (0-100); Basophils Percent Auto 0.8 % (0-2); Eosinophils Absolute Auto 200 /uL (0-450); Eosinophils Percent Auto 2.9 % (2-4); Hemoglobin 13.2 g/dL (13.5-17.5); Lymphocytes Absolute Auto 1300 /uL (1100-4500); Lymphocytes Percent Auto 18.3 % (25-40); Mean Corpuscular HGB Conc 33.1 % (30-36); Mean Corpuscular Hemoglobin 27.1 PG (26-34); Mean Corpuscular Volume 81.9 fL (80-100); Monocytes Absolute Auto 500 /uL (0-900); Monocytes Percent Auto 6.8 % (3-14); Neutrophils Absolute Auto 5200 /uL (1500-7000); Neutrophils Percent Auto 71.2 % (50-75); Platelet Count 183 X10^3/uL (150-400); Red Blood Cell Count 4.89 X10^6/uL (4.5-5.9); Red Cell Distribution Width 13.8 % (11.6-14.8); White Blood Cell Count 7.3 X10^3/uL (4.5-11.0)
[2024-03-12 01:50] LABS: Alanine Aminotransferase 22 IU/L (<50); Albumin 3.6 g/dL (3.5-5.0); Albumin Globulin Ratio 1.3 (1.0-2.8); Alkaline Phosphatase 82 U/L (38-126); Aspartate Aminotransferase 27 IU/L (17-59); Bilirubin Total 0.4 mg/dL (0.2-1.3); Blood Urea Nitrogen 16 mg/dL (9-20); Calcium 8.8 mg/dL (8.4-10.2); Carbon Dioxide 27 mmol/L (22-32); Chloride 105 mmol/L (98-107); Estimated Glomerular Filt Rate > 60 mL/min (>60); Globulin 2.7 g/dL (1.7-4.1); Glucose 95 mg/dL (80-110); HEMOLYSIS < 15 (0-50); Lipase 27 U/L (23-300); Potassium 3.7 mmol/L (3.4-5.1); Sodium 135 mmol/L (137-145); Total Protein 6.3 g/dL (6.3-8.2)
[2024-03-12] MEDS: SODIUM CHLORIDE 0.9% 1,000 ML 150 ML IV (03:17)
[2024-03-12] MEDS: cephALEXin 250 MG CAPSULE 500 MG PO (03:33)
[2024-03-12 03:36] VITALS: BP 164/85; PULSE 42; RESP 16; O2SAT 94
[2024-03-12 03:45] LABS: Appearance Urine UA CLEAR; Bilirubin Urine UA NEGATIVE (NEGATIVE); Color Urine UA YELLOW; Glucose Urine UA NEGATIVE (Negative); Ketones Urine UA NEGATIVE (NEGATIVE); Leukocyte Esterase Urine UA NEGATIVE (NEGATIVE); Nitrite Urine UA NEGATIVE (Negative); Occult Blood Urine UA NEGATIVE (Negative); Protein Urine UA NEGATIVE (Negative); Specific Gravity Urine UA <=1.005 (1.000-1.035); Urobilinogen Urine UA 0.2 E.U./dL (0.2)
[2024-03-12 03:59] LABS: Bacteria Urine None Seen; Culture Indicated Urine Cult Not Indicated; RBC Urine None Seen (0-5/HPF); Squamous Epithelial Cell Urine 0-1 /HPF (0-5/HPF); Urine Volume 10mL (spun); WBC Urine None Seen (0-5/HPF)
[2024-03-12 04:02] LABS: Urine Amphetamines Negative (Negative); Urine Barbiturates Negative (Negative); Urine Benzodiazepines Negative (Negative); Urine Cocaine Negative (Negative); Urine MDMA Negative (Negative); Urine Methadone Positive (Negative); Urine Methamphetamines Negative (Negative); Urine Opiates Negative (Negative); Urine Oxycodone Negative (Negative); Urine Phencyclidine Negative (Negative); Urine THC Negative (Negative); Urine Tricyclic Antidepressant Negative (Negative)
== END 2024-03-12 03:40 | disposition home or self-care (01) ==
PROVIDERS: Emergency Provider Emergency Medicine
DX: S16.1XXA Strain of muscle, fascia and tendon at neck level, initial encounter (principal); S93.402A Sprain of unspecified ligament of left ankle, initial encounter; S29.012A Strain of muscle and tendon of back wall of thorax, initial encounter; S39.012A Strain of muscle, fascia and tendon of lower back, initial encounter; S30.1XXA Contusion of abdominal wall, initial encounter; L03.114 Cellulitis of left upper limb; R10.32 Left lower quadrant pain; R07.89 Other chest pain; W17.89XA Other fall from one level to another, initial encounter
CPT/HCPCS: 36415; 70450; 71275; 72125; 73610; 74177; 80053; 80305; 81001; 83690; 85025; 85610; 99284; Q9967

== ENCOUNTER 2024-05-12 19:39 | Emergency (ER) | payer MEDICARE, BC, MEDICAID, SELFPAY ==
[2023-11-07 21:09] VITALS: BMI 33.2
--- NOTE | 2024-05-12 19:41 | DI.US.S_ITS ---
PROCEDURE: US PERIPH VENOUS LOW EXTREM RT INDICATIONS: RIGHT THIGH AND KNEE PAIN S/P FALL 3 WEEKS AGO TECHNIQUE: Real-time imaging, as well as color and pulse Doppler interrogation, were performed of the lower extremity deep veins from the inguinal ligament to the popliteal fossa, with documentation of the visualized calf veins. COMPARISON: None. FINDINGS: The common femoral, femoral, popliteal, and the visualized calf veins are normally compressible, and free of intraluminal thrombus. Color and pulse Doppler demonstrate normal phasic intraluminal flow. There is normal augmentation response to distal compression maneuver. Fluid collection along the lateral anterior knee measuring 4.0 cm. IMPRESSION: No findings of lower extremity deep venous thrombosis. Anterior lateral fluid collection possibly representing hematoma. Dictated by: Elsy Jaffe M.D. on 05/12/2024 at 20:20 Approved by: Elsy Jaffe M.D. on 05/12/2024 at 20:22
[2024-05-12 19:45] VITALS: BP 137/79; PULSE 65; RESP 18; TEMP 37.4; O2SAT 92
--- NOTE | 2024-05-12 19:50 | PC.NURSE ---
to US from triage
--- NOTE | 2024-05-12 20:25 | ED_ITS ---
HPI - Extremity Problem General Chief complaint: Extremity Problem,Nontraumatic Stated complaint: R Thigh DVT Concerns Time Seen by Provider: 05/12/24 19:40 Source: patient, RN notes reviewed and old records reviewed Mode of arrival: Ambulatory Limitations: no limitations History of Present Illness HPI Narrative: 64-year-old with a fall 3 weeks ago. patient describes a tumbling fall states he did hit his head he was little bit dazed. States no anticoagulants. He states since then he has had discomfort in his right thigh little bit in his right knee as well as shoulder. He has been able to ambulate and move everything appropriately. He noted some bruising over his right thigh which has resolved after about a week. Patient states did not lose any consciousness. Denies any neck or midline back pain. No chest pain or shortness of breath. No nausea or vomiting no other GI or urinary symptoms. No numbness tingling weakness in his extremities. Patient saw patient provider who had ordered a DVT ultrasound and x-ray but patient presented during after hours and was not able to get these as an outpatient presented to the ED. patient states he takes methadone daily as well as tamsulosin. States he has had prior back surgery. Denies any drug allergies. No tobacco, no regular alcohol, no recreational drugs. Related Data Home Medications Medication Instructions Recorded Confirmed lisinopril 30 mg tablet 30 mg PO BEDTIME 11/02/23 11/07/23 methadone 10 mg tablet 75 mg PO DAILY 11/02/23 11/07/23 tamsulosin 0.4 mg capsule (Flomax) 0.4 mg PO BEDTIME 11/02/23 11/07/23 Previous Rx's Medication Instructions Recorded sulfamethoxazole 800 1 tab PO BID #10 tabs 02/18/24 mg-trimethoprim 160 mg tablet Allergies Allergy/AdvReac Type Severity Reaction Status Date / Time No Known Drug Allergies Allergy Verified 11/20/23 18:21 Review of Systems Review of Systems ROS Unobtainable: All systems reviewed & are unremarkable except as noted in HPI and below Patient History Medical History Methadone maintenance therapy patient Hypertension BPH (benign prostatic hyperplasia) Chronic back pain Social History household members: spouse Smoking Status: Never smoker alcohol intake: never Smoking Status: Never smoker alcohol intake frequency: 0-2 drinks per day Substance Use Type: does not use Exam Narrative Exam Narrative: GENERAL: Alert and oriented x three, male in mild distress HEENT: Head normocephalic, atraumatic, EOMI, pupils reactive, face symmetric, moist mucous membranes NECK: Supple, full range of motion CARDIOVASCULAR: Regular rate and rhythm without murmurs, rubs or gallops. RESPIRATORY: Breath sounds equal bilaterally, no wheezes rales or rhonchi. ABDOMEN: Soft, nontender. Normoactive bowel sounds all 4 quadrants. No guarding or rebound, rigidity, no mass : No CVA tenderness BACK: No cervical, thoracic or lumbar vertebral point tenderness. Patient has normal range of motion. Patient's gait is normal. Muscle strength is 5/5 in lower extremities. EXTREMITIES: Normal range of motion, no clubbing or edema. Neurovascularly intact, Patient has a little bit of fullness over the right lateral thigh, no ecchymosis or other changes. Patient does not have any significant bony tenderness to the right hip. No tenderness to the knee. No joint laxity. Patient is able to stand and walk appropriately. Full range of motion of the right shoulder with no discrete bony tenderness. NEUROLOGICAL: Cranial nerves II through XII grossly intact. Moving all extremities SKIN: Warm, dry, no petechiae, no rashes or lesions. Initial Vital Signs Initial Vital Signs: Vital Signs Temperature 99.3 F 05/12/24 19:45 Pulse Rate 65 05/12/24 19:45 Respiratory Rate 18 05/12/24 19:45 Blood Pressure 137/79 05/12/24 19:45 Pulse Oximetry 92 05/12/24 19:45 Oxygen Delivery Method Room Air 05/12/24 19:45 Course Orders Ordered: ED Orders 05/12/24 19:41 US periph venous low extrem rt Stat 05/12/24 20:30 XR femur RT min 2V Stat XR knee RT 3V Stat Vital Signs Vital signs: Vital Signs - 8 hr 05/12/24 19:45 Temperature 99.3 F Pulse Rate 65 Respiratory Rate 18 Blood Pressure 137/79 Pulse Oximetry 92 Oxygen Delivery Method Room Air MDM - Extremity (Nontraumatic) Imaging Data US - DVT: Radiologist's Impression: Mahendra Norwood??64??M??1960 ? Allergy/Adv: No Known Drug Allergies Close Vascular Ultrasound (Signed) Elsy Jaffe - 05/12/24 Ankle X-Ray (Signed) Rikki George - 03/12/[address] (Signed) RudyManohar - 03/12/[address] (Signed) Donavon Grantderic - 03/12/24 Chest/Abdomen/Pelvis CT (Signed) Rikki George - 03/12/24 Hand X-Ray (Signed) Dennise Jordan - 02/18/24 Hand X-Ray (Signed) Yony Adams - 02/07/24 Chest CTA (Signed) CaputaLaney - 12/25/23 Chest X-Ray (Signed) Rikki George - 12/25/23 Chest X-Ray (Signed) Bam Ramon - 12/05/23 Telemetry Strips 12/04/23 Chest X-Ray (Signed) CaputaAlbertLaney - 11/20/23 Radiology Report (Cancelled) Sera Hayward - 11/08/23 Myocardial Perfusion Scan Nuc Med (Signed) Sera Hayward - 11/08/23 Telemetry Strips 11/07/23 Chest X-Ray (Signed) Martin Day - 11/07/23 Chest X-Ray (Signed) Ramiro Garcia - 11/05/23 Echocardiogram Ultrasound (Signed) Wei George - 11/03/23 Telemetry Strips 11/03/23 Chest CTA (Signed) Call,Mina - 11/02/[address] (Signed) Call,Mina - 11/02/23 Chest X-Ray (Signed) Call,Mina - 11/02/23 Knee X-Ray (Signed) Bam Ramon - 10/11/23 Launch?[address] [address] Ultrasound Report Signed Patient: Mahendra Norwood MR#: [id number] : 1960 Acct:[id number] Age/Sex: 64 / M Date of Service: 05/12/24 Loc: ED Accession Number: [id number] Procedure: US periph venous low extrem rt Ordering Provider: Sejal Mcadams D.O. PROCEDURE: US PERIPH VENOUS LOW EXTREM RT INDICATIONS: RIGHT THIGH AND KNEE PAIN S/P FALL 3 WEEKS AGO TECHNIQUE: Real-time imaging, as well as color and pulse Doppler interrogation, were performed of the lower extremity deep veins from the inguinal ligament to the popliteal fossa, with documentation of the visualized calf veins. COMPARISON: None. FINDINGS: The common femoral, femoral, popliteal, and the visualized calf veins are normally compressible, and free of intraluminal thrombus. Color and pulse Doppler demonstrate normal phasic intraluminal flow. There is normal augmentation response to distal compression maneuver. Fluid collection along the lateral anterior knee measuring 4.0 cm. IMPRESSION: No findings of lower extremity deep venous thrombosis. Anterior lateral fluid collection possibly representing hematoma. Dictated by: Elsy Jaffe M.D. on 05/12/2024 at 20:20 Approved by: Elsy Jaffe M.D. on 05/12/2024 at 20:22 Extremity x-ray #1: Radiologist's Impression: Close Knee X-Ray (Signed) Elsy Jaffe - 05/12/24 Femur X-Ray (Signed) Elsy Jaffe - 05/12/24 Vascular Ultrasound (Signed) Elsy Jaffe - 05/12/24 Ankle X-Ray (Signed) Rikki George - 03/12/[address] (Signed) Manohar Grant - 03/12/[address] (Signed) Manohar Grant - 03/12/24 Chest/Abdomen/Pelvis CT (Signed) Rikki George - 03/12/24 Hand X-Ray (Signed) Dennise Jordan - 02/18/24 Hand X-Ray (Signed) Yony Adams - 02/07/24 Chest CTA (Signed) Laney Morton - 12/25/23 Chest X-Ray (Signed) Rikki George - 12/25/23 Chest X-Ray (Signed) Bam Ramon - 12/05/23 Telemetry Strips 12/04/23 Chest X-Ray (Signed) Laney Morton - 11/20/23 Radiology Report (Cancelled) Sera Hayward - 11/08/23 Myocardial Perfusion Scan Nuc Med (Signed) Sera Hayward - 11/08/23 Telemetry Strips 11/07/23 Chest X-Ray (Signed) Martin Day - 11/07/23 Chest X-Ray (Signed) Ramiro Garcia - 11/05/23 Echocardiogram Ultrasound (Signed) Wei George - 11/03/23 Telemetry Strips 11/03/23 Chest CTA (Signed) Call,Mina - 11/02/[address] (Signed) Call,Mina - 11/02/23 Chest X-Ray (Signed) Call,Mina - 11/02/23 Knee X-Ray (Signed) Bam Ramon - 10/11/23 Launch?Image [address] [address] XRay Report Signed Patient: Mahendra Norwood MR#: [id number] : 1960 Acct:[id number] Age/Sex: 64 / M Date of Service: 05/12/24 Loc: ED Accession Number: [id number] Procedure: XR knee RT 3V Ordering Provider: Sejal Mcadams D.O. PROCEDURE: XR KNEE RT 3V INDICATIONS: fall, femur/knee pain fall 3wks ago, walking TECHNIQUE: 3 views of the knee were acquired. COMPARISON: [facility], CR, XR FEMUR RT MIN 2V, 05/12/2024, 20:34. [facility], CR, XR KNEE RT 3V, 10/11/2023, 23:44. FINDINGS: Bones: No fractures or dislocations. No suspicious bony lesions. Moderate tricompartmental arthritic change most severe medially. Soft tissues: Prominent joint effusion. No suspicious soft tissue calcifications. IMPRESSION: Prominent effusion. No visualized acute fracture or dislocation. However, if clinical concern and/or pain persist, short interval imaging followup in 7-10 days is recommended, as occult injury cannot be definitively excluded. Dictated by: Elsy Jaffe M.D. on 05/12/2024 at 20:57 Approved by: Elsy Jaffe M.D. on 05/12/2024 at 20:58 Extremity x-ray #2: Radiologist's Impression: Close Knee X-Ray (Signed) Elsy Jaffe - 05/12/24 Femur X-Ray (Signed) Elsy Jaffe - 05/12/24 Vascular Ultrasound (Signed) Elsy Jaffe - 05/12/24 Ankle X-Ray (Signed) Rikki George - 03/12/[address] (Signed) Manohar Grant - 03/12/[address] (Signed) Jorge Grantic - 03/12/24 Chest/Abdomen/Pelvis CT (Signed) Rikki George - 03/12/24 Hand X-Ray (Signed) Dennise Jordan - 02/18/24 Hand X-Ray (Signed) Yony Adams - 02/07/24 Chest CTA (Signed) Praveen,Laney - 12/25/23 Chest X-Ray (Signed) Rikki George - 12/25/23 Chest X-Ray (Signed) Bam Ramon - 12/05/23 Telemetry Strips 12/04/23 Chest X-Ray (Signed) Caputa,Laney - 11/20/23 Radiology Report (Cancelled) Sera Hayward - 11/08/23 Myocardial Perfusion Scan Nuc Med (Signed) Paliwal,Annydhu - 11/08/23 Telemetry Strips 11/07/23 Chest X-Ray (Signed) Martin Day - 11/07/23 Chest X-Ray (Signed) GarciaRamiro - 11/05/23 Echocardiogram Ultrasound (Signed) Wei George - 11/03/23 Telemetry Strips 11/03/23 Chest CTA (Signed) Call,Mina - 11/02/[address] (Signed) Call,Mina - 11/02/23 Chest X-Ray (Signed) Call,Mina - 11/02/23 Knee X-Ray (Signed) Bam Ramon - 10/11/23 Launch?[place] [address] XRay Report Signed Patient: Mahendra Norwood MR#: [id number] : 1960 Acct:[id number] Age/Sex: 64 / M Date of Service: 05/12/24 Loc: ED Accession Number: [id number] Procedure: XR femur RT min 2V Ordering Provider: Sejal Mcadams D.O. PROCEDURE: XR FEMUR RT MIN 2V INDICATIONS: fall, femur/knee pain fall 3wks ago, walking TECHNIQUE: 2 views of the femur were acquired. COMPARISON: [facility], CR, XR KNEE RT 3V, 05/12/2024, 20:34. FINDINGS: Bones: No fractures or dislocations. No suspicious bony lesions. Soft tissues: No suspicious soft tissue calcifications or masses. IMPRESSION: No visualized acute fracture or dislocation. However, if clinical concern and/or pain persist, short interval imaging followup in 7-10 days is recommended, as occult injury cannot be definitively excluded. Dictated by: Elsy Jaffe M.D. on 05/12/2024 at 20:57 Approved by: Elsy Jaffe M.D. on 05/12/2024 at 20:57 [facility] Narrative Medical decision making narrative: 64-year-old male with complaint of fullness and swelling of his right thigh and pain in his knee after a fall about 3 weeks ago describes as a tumbling fall did hit his head denies any loss of consciousness is not on any anticoagulation as he is 3 weeks out from his initial injury with no acute neurologic changes or other concerning changes not felt to require head CT or cervical spine but he has had persistent pain in his knee and thigh with some fullness which I appreciate on exam as well. Patient ambulates without issue. DVT ultrasound is negative femur x-ray shows no acute change right knee x-ray shows joint effusion no fracture or dislocation. Discussed with patient he is ambulated without issue has a mild pain does not have any difficulty with movement would have patient follow up with primary care if symptoms are persisting for further workup needed. Patient states he has been ambulating okay but a little bit uncomfortable. Discussed he will obtain a neoprene knee brace he has good movement do not think he requires a knee immobilizer he deferred Dontrell wrap here. States he was ambulating well enough does not need crutches. Reviewed all of his findings from today and return precautions. Discharge Plan Departure Patient Disposition: Home Clinical Impression: Hematoma of right thigh, Knee effusion, right Activity Restrictions/Additional Instructions: Your workup today does show fluid collection along the right thigh which consistent with a possible hematoma that could be related to your fall. He also has a little bit of fluid around your knee or joint effusion. You can continue to weightbear as tolerated. If your pain is persistent please follow up with primary care for recheck. Continue your home medications as prescribed. Please return if you have increasing swelling of your legs new redness or warmth, rapidly worsening pain, inability to weightbear or other new or concerning changes. Prescriptions: No Action methadone 10 mg Tablet 75 mg PO DAILY tamsulosin [Flomax] 0.4 mg Capsule 0.4 mg PO BEDTIME lisinopril 30 mg Tablet 30 mg PO BEDTIME sulfamethoxazole-trimethoprim 800-160 mg tablet 1 tab PO BID Qty: 10 0RF Referrals: Miscellaneous,Doctor, MD [Primary Care Provider] - Stand Alone Forms: Patient Portal/API/Survey
--- NOTE | 2024-05-12 20:30 | DI.RAD.S_ITS ---
PROCEDURE: XR FEMUR RT MIN 2V INDICATIONS: fall, femur/knee pain fall 3wks ago, walking TECHNIQUE: 2 views of the femur were acquired. COMPARISON: [facility], CR, XR KNEE RT 3V, 05/12/2024, 20:34. FINDINGS: Bones: No fractures or dislocations. No suspicious bony lesions. Soft tissues: No suspicious soft tissue calcifications or masses. IMPRESSION: No visualized acute fracture or dislocation. However, if clinical concern and/or pain persist, short interval imaging followup in 7-10 days is recommended, as occult injury cannot be definitively excluded. Dictated by: Elsy Jaffe M.D. on 05/12/2024 at 20:57 Approved by: Elsy Jaffe M.D. on 05/12/2024 at 20:57
--- NOTE | 2024-05-12 20:30 | DI.RAD.S_ITS ---
PROCEDURE: XR KNEE RT 3V INDICATIONS: fall, femur/knee pain fall 3wks ago, walking TECHNIQUE: 3 views of the knee were acquired. COMPARISON: [facility], CR, XR FEMUR RT MIN 2V, 05/12/2024, 20:34. [facility], CR, XR KNEE RT 3V, 10/11/2023, 23:44. FINDINGS: Bones: No fractures or dislocations. No suspicious bony lesions. Moderate tricompartmental arthritic change most severe medially. Soft tissues: Prominent joint effusion. No suspicious soft tissue calcifications. IMPRESSION: Prominent effusion. No visualized acute fracture or dislocation. However, if clinical concern and/or pain persist, short interval imaging followup in 7-10 days is recommended, as occult injury cannot be definitively excluded. Dictated by: Elsy Jaffe M.D. on 05/12/2024 at 20:57 Approved by: Elsy Jaffe M.D. on 05/12/2024 at 20:58
[2024-05-12 21:24] VITALS: BP 122/73; PULSE 58; RESP 14; O2SAT 93
== END 2024-05-12 21:26 | disposition home or self-care (01) ==
PROVIDERS: Emergency Provider Emergency Medicine
DX: S70.11XA Contusion of right thigh, initial encounter (principal); M25.461 Effusion, right knee; M79.651 Pain in right thigh; M25.561 Pain in right knee; M25.511 Pain in right shoulder; W18.30XA Fall on same level, unspecified, initial encounter
CPT/HCPCS: 73552; 73562; 93971; 99281; 99283

== ENCOUNTER 2024-08-27 00:55 | Emergency (ER) | payer MEDICARE, MEDICAID, SELFPAY ==
[2023-11-07 21:09] VITALS: BMI 33.2
[2024-08-27 01:01] VITALS: BP 167/84; PULSE 66; RESP 17; TEMP 37.1; O2SAT 98; BMI 31.1
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
[2024-08-27] MEDS: CLINDAMYCIN 150 MG CAPSULE 300 MG PO (01:22)
== END 2024-08-27 01:29 | disposition home or self-care (01) ==
PROVIDERS: Emergency Provider Emergency Medicine
DX: L73.8 Other specified follicular disorders (principal); Z87.820 Personal history of traumatic brain injury
CPT/HCPCS: 99283

== ENCOUNTER 2024-10-22 23:53 | Emergency (ER) | payer MEDICARE, MEDICAID, SELFPAY ==
[2023-11-07 21:09] VITALS: BMI 33.2
[2024-10-23] VITALS (8 sets, daily range): BP systolic 117–151; BP diastolic 68–85; PULSE 50–77; RESP 18–25; TEMP 33.3; O2SAT 91–93; BMI 31.8
--- NOTE | 2024-10-23 00:07 | DI.RAD.S_ITS ---
PROCEDURE: XR CHEST 1V INDICATIONS: Chest Pain TECHNIQUE: One view of the chest was acquired. COMPARISON: [facility], CR, XR CHEST 1V, 12/25/2023, 19:19. [facility], CR, XR CHEST 1V, 12/05/2023, 0:04. [facility], CR, XR CHEST 1V, 11/20/2023, 18:43. [facility], CR, XR CHEST 1V, 11/07/2023, 16:35. FINDINGS: Surgical changes and devices: None. Lungs and pleura: Lungs are clear. No pleural effusions or pneumothorax. Mediastinum: Mediastinal contours appear normal. Heart size is normal. Bones and chest wall: No suspicious bony lesions. Overlying soft tissues appear unremarkable. IMPRESSION: No acute cardiothoracic process. Dictated by: Adam Hayes M.D. on 10/23/2024 at 0:44 Approved by: Adam Hayes M.D. on 10/23/2024 at 0:44
--- NOTE | 2024-10-23 00:12 | EKG_ITS ---
[id number] [address] Test Date: 2024-10-23 Pat Name: Mahendra Norwood Department: [facility] Room: Gender: Male Vascular Sonographer: BENNIE : 1960 Requested By: Order Number: [id number] Reading MD: Riley Kaiser MD Measurements Intervals [place] Rate: 68 P: 52 NC: 176 QRS: -52 QRSD: 102 T: 39 QT: 412 QTc: 438 Interpretive Statements Normal sinus rhythm Left axis deviation Electronically Signed On 10-23-2024 6:52:47 PDT by Riley Kaiser MD
[2024-10-23 00:36] LABS: Add Manual Diff / Slide Review NO; Basophils Absolute Auto 100 /uL (0-100); Basophils Percent Auto 0.7 % (0-2); Eosinophils Absolute Auto 200 /uL (0-450); Eosinophils Percent Auto 2.1 % (2-4); Hematocrit 44.1 % (41-53); Hemoglobin 14.8 g/dL (13.5-17.5); Lymphocytes Absolute Auto 1100 /uL (1100-4500); Lymphocytes Percent Auto 14.4 % (25-40); Mean Corpuscular HGB Conc 33.7 % (30-36); Mean Corpuscular Hemoglobin 27.5 PG (26-34); Mean Corpuscular Volume 81.7 fL (80-100); Monocytes Absolute Auto 500 /uL (0-900); Monocytes Percent Auto 6.6 % (3-14); Neutrophils Absolute Auto 5700 /uL (1500-7000); Neutrophils Percent Auto 76.2 % (50-75); Platelet Count 187 X10^3/uL (150-400); Red Blood Cell Count 5.39 X10^6/uL (4.5-5.9); Red Cell Distribution Width 13.3 % (11.6-14.8); White Blood Cell Count 7.4 X10^3/uL (4.5-11.0)
[2024-10-23 00:50] LABS: Prothrombin Time 11.8 SECONDS (9.4-12.5)
[2024-10-23 00:53] LABS: PTT Partial Thromboplastin Tim 37 SECONDS (25.1-36.5)
--- NOTE | 2024-10-23 00:54 | ED_ITS ---
HPI - Chest Pain General Chief Complaint: Chest Pain Stated Complaint: chest pain Time Seen by Provider: 10/23/24 00:54 Source: patient Mode of arrival: Ambulatory Limitations: no limitations History of Present Illness HPI narrative: 64-year-old male past medical history of hypertension on methadone presents to the emergency department from home for evaluation of chest pain that has been intermittent nature for the past several days, he states that in the past he has had to use nitro for this with improvement of his symptoms but states he could not find them this time which is what brought him into the ED for further evaluation treatment. He states that he last saw his supervisor [place] 8 months ago, states he can not remember their name but states that they are here in [place]. At time of evaluation patient is stating that he has had himself left-sided chest pain. He denies any other symptoms at this time Related Data Home Medications Medication Instructions Recorded Confirmed methadone 10 mg tablet 44 mg PO DAILY 11/02/23 10/23/24 tamsulosin 0.4 mg capsule (Flomax) 0.4 mg PO BEDTIME 11/02/23 10/23/24 Allergies Allergy/AdvReac Type Severity Reaction Status Date / Time No Known Drug Allergies Allergy Verified 08/27/24 01:04 Review of Systems Review of Systems Narrative: General: Denies fever, chills, weight loss HEENT: Denies headache, eye drainage, eye irritation, head trauma, sore throat, voice change Cardiovascular: Positive chest pain, denies palpitations, tachycardia Respiratory: Denies any shortness of breath, cough, wheeze, stridor GI/: Denies any abdominal pain, nausea, vomiting, diarrhea, bright red blood per rectum, melanotic stools, urinary frequency, urinary retention, dysuria, hematuria MSK: Denies any joint pain, muscle pains, swelling Skin: Denies any rashes, lesions, discoloration Neuro: Denies any headache, lightheadedness, dizziness, fainting, weakness Psych: Denies SI/HI Patient History Medical History Methadone maintenance therapy patient Hypertension BPH (benign prostatic hyperplasia) Chronic back pain Social History household members: spouse Smoking Status: Never smoker alcohol intake: never Smoking Status: Never smoker alcohol intake frequency: 0-2 drinks per day Exam Narrative Exam Narrative: General: Cooperative, well-developed, not in acute distress HEENT: Normocephalic, atraumatic, PERRLA, normal sclera, eyelids normal Neck: Active full range of motion, atraumatic Chest: Normal to inspection, negative crepitus, no overlying erythema ecchymosis Respiratory: Normal respiratory effort, not in acute respiratory distress, clear to auscultation bilaterally negative cough, wheeze, tachypnea, rhonchi, rales Cardiology: Regular rate rhythm negative gallop, murmur, rubs GI/: No tenderness to palpation, soft, non rigid, normal to inspection, exam deferred MSK: Full active range of motion in all 4 extremities, atraumatic, no tenderness to palpation of any bony prominences Skin: No rashes or lesions noted Neuro: Alert awake oriented x3, moves all 4 extremities spontaneously, cranial nerves intact, able to answer all questions appropriately follows commands appropriately Psych: Cooperative, negative suicidal or homicidal ideations Initial Vital Signs Initial Vital Signs: Vital Signs Temperature 92 F L 10/23/24 00:08 Pulse Rate 67 10/23/24 00:08 Respiratory Rate 18 10/23/24 00:08 Blood Pressure 142/85 H 10/23/24 00:08 Pulse Oximetry 92 10/23/24 00:08 Oxygen Delivery Method Room Air 10/23/24 00:08 Course Orders Ordered: ED Orders 10/23/24 00:07 XR chest 1V Stat EKG-12 Lead Stat RT Consult Eval and Treat NOW 10/23/24 00:22 Complete Blood Count AUTO DIFF Stat Comprehensive Metabolic Panel Stat Lactate (Lactic Acid) Stat Lipase Stat Magnesium Stat NT-proBNP (BNP-Adult 18+) Stat PTT Partial Thromboplastin Jose Stat Prothrombin Time INR Stat Troponin & CK Cardiac Panel Stat 10/23/24 02:20 Trop I [Troponin I] Stat Discontinued Medications Aspirin (Aspirin 81 Mg Chew Tab) 324 mg PO NOW ONE Stop: 10/23/24 00:07 Last Admin: 10/23/24 01:06 Dose: 324 mg Documented By: AB Nitroglycerin (Nitroglycerin 0.4 Mg Sl Tab) 0.4 mg SL NOW ONE Stop: 10/23/24 01:03 Last Admin: 10/23/24 01:06 Dose: 0.4 mg Documented By: AB Vital Signs Vital signs: Vital Signs - 8 hr 10/23/24 00:08 10/23/24 01:06 10/23/24 01:20 Temperature 92 F L Pulse Rate 67 64 77 Respiratory Rate 18 25 H Blood Pressure 142/85 H 151/82 H Pulse Oximetry 92 Oxygen Delivery Method Room Air 10/23/24 01:30 10/23/24 01:31 10/23/24 01:31 Temperature Pulse Rate 60 61 Respiratory Rate 19 18 Blood Pressure 137/69 Pulse Oximetry 91 91 Oxygen Delivery Method 10/23/24 02:00 10/23/24 02:00 Temperature Pulse Rate 55 L Respiratory Rate 19 Blood Pressure 121/71 Pulse Oximetry 93 Oxygen Delivery Method Room Air MDM - Chest Pain Differential Diagnosis Differential diagnosis: Likely costochondritis and other (ACS, pneumonia, electrolyte abnormality) Lab Data 10/23/24 00:22 10/23/24 00:22 Labs: Lab Results 10/23/24 Range/Units 00:22 WBC 7.4 (4.5-11.0) X10^3/uL RBC 5.39 (4.5-5.9) X10^6/uL Hgb 14.8 (13.5-17.5) g/dL Hct 44.1 (41-53) % MCV 81.7 (80-100) fL MCH 27.5 (26-34) PG MCHC 33.7 (30-36) % RDW 13.3 (11.6-14.8) % Plt Count 187 (150-400) X10^3/uL Neut % (Auto) 76.2 H (50-75) % Lymph % (Auto) 14.4 L (25-40) % Caroline % (Auto) 6.6 (3-14) % Eos % (Auto) 2.1 (2-4) % Baso % (Auto) 0.7 (0-2) % Neut # (Auto) 5700 (3058-3803) /uL Lymph # (Auto) 1100 (9751-5621) /uL Caroline # (Auto) 500 (0-900) /uL Eos # (Auto) 200 (0-450) /uL Baso # (Auto) 100 (0-100) /uL PT 11.8 (9.4-12.5) SECONDS INR 1.0 (0.9-1.3) APTT 37 H (25.1-36.5) SECONDS Sodium 136 L (137-145) mmol/L Potassium 3.7 (3.4-5.1) mmol/L Chloride 105 (98-107) mmol/L Carbon Dioxide 23 (22-32) mmol/L BUN 19 (9-20) mg/dL Creatinine 1.37 H (0.66-1.25) mg/dL Estimated GFR 57 L (>60) mL/min BUN/Creatinine Ratio 13.9 (6-22) Glucose 98 (70-99) mg/dL Lactate 0.9 (0.7-2.1) mmol/L Calcium 9.1 (8.4-10.2) mg/dL Magnesium 2.0 (1.6-2.3) mg/dL Total Bilirubin 1.2 (0.2-1.3) mg/dL AST 44 (17-59) IU/L ALT 33 (<50) IU/L Alkaline Phosphatase 84 (38-126) U/L Total Creatine Kinase 461 H (55-170) U/L Troponin I < 0.012 (0.01-0.034) ng/mL NT-Pro-B Natriuret Pep 180 H (<125) pg/mL Total Protein 7.4 (6.3-8.2) g/dL Albumin 4.5 (3.5-5.0) g/dL Globulin 2.9 (1.7-4.1) g/dL Albumin/Globulin Ratio 1.6 (1.0-2.8) Lipase 33 (23-300) U/L Imaging Data Chest x-ray: Radiologist's Impression: [address] [address] XRay Report Signed Patient: Mahendra Norwood MR#: [id number] : 1960 Acct:[id number] Age/Sex: 64 / M Date of Service: 10/23/24 Loc: ED Accession Number: [id number] Procedure: XR chest 1V Ordering Provider: Pradeep Knowles D.O. PROCEDURE: XR CHEST 1V INDICATIONS: Chest Pain TECHNIQUE: One view of the chest was acquired. COMPARISON: [facility], XR CHEST 1V, 12/25/2023, 19:19. [facility], XR CHEST 1V, 12/05/2023, 0:04. [facility], CR, XR CHEST 1V, 11/20/2023, 18:43. [facility], CR, XR CHEST 1V, 11/07/2023, 16:35. FINDINGS: Surgical changes and devices: None. Lungs and pleura: Lungs are clear. No pleural effusions or pneumothorax. Mediastinum: Mediastinal contours appear normal. Heart size is normal. Bones and chest wall: No suspicious bony lesions. Overlying soft tissues appear unremarkable. IMPRESSION: No acute cardiothoracic process. ECG Data Interpretation: EKG interpreted by ED physician sinus 68 beats per minute normal axis nonspecific ST changes no STEMI MDM Narrative Medical decision making narrative: 64-year-old male past medical history of hypertension, on methadone comes into the ED from home for evaluation of chest pain, comes into the ED from home for evaluation of chest pain, he states it has been intermittent in nature for the past several days, he states that he has a history of this normally uses nitro to take care of this, however he states that he was unable to find this at home which is what brought him into the ED today. He states that he last saw his supervisor [place] proximally 8 months ago states he does not remember their name but states that they are here in [place]. Patient had lab work imaging EKG chest x-ray performed here in the emergency department. Patient without any cardiopulmonary abnormality on chest x-ray, EKG nonischemic in nature, lab work unremarkable troponin negative x2, patient with a heart score of 3 patient instructed follow up with Cardiology and PCP in outpatient setting, patient was given full-dose aspirin and nitro with complete resolution of his pain here in the emergency department. Patient was given strict return precautions he verbalized understanding of this and agrees to being discharged home with outpatient follow up Discharge Plan Departure Patient Disposition: Home Clinical Impression: Chest pain Instructions: DI for Chest Pain Activity Restrictions/Additional Instructions: Please follow up with your supervisor [place] and your primary care doctor Please read the discharge instructions sheet carefully and bring all papers to all doctor follow-up visits, as it may contain information that your doctor may want to see. Disease processes change and evolve, if your symptoms worsen or if you develop any new symptoms that are concerning to you please return for evaluation. Your evaluation today does not show any evidence of any life- threatening/serious illnesses requiring admission to the hospital or surgery. Please follow-up with your doctor for re-evaluation in approximately 1 day. Seek immediate medical attention for any worrisome symptoms. *If you do not have a primary care provider please contact the [facility] Resource line at [phone]. They will ask some questions about your medical history and help get you set up with a doctor in the community. Prescriptions: No Action methadone 10 mg Tablet 44 mg PO DAILY tamsulosin [Flomax] 0.4 mg Capsule 0.4 mg PO BEDTIME Referrals: Miscellaneous,Doctor, MD [Primary Care Provider] - Stand Alone Forms: Patient Portal/API/Survey
[2024-10-23 00:55] LABS: Alanine Aminotransferase 33 IU/L (<50); Albumin 4.5 g/dL (3.5-5.0); Albumin Globulin Ratio 1.6 (1.0-2.8); Alkaline Phosphatase 84 U/L (38-126); Aspartate Aminotransferase 44 IU/L (17-59); BUN Creatinine Ratio 13.9 (6-22); Bilirubin Total 1.2 mg/dL (0.2-1.3); Blood Urea Nitrogen 19 mg/dL (9-20); Calcium 9.1 mg/dL (8.4-10.2); Carbon Dioxide 23 mmol/L (22-32); Chloride 105 mmol/L (98-107); Creatine Kinase 461 U/L (55-170); Estimated Glomerular Filt Rate 57 mL/min (>60); Globulin 2.9 g/dL (1.7-4.1); Glucose 98 mg/dL (70-99); HEMOLYSIS < 15 (0-50); Lactate (Lactic Acid) 0.9 mmol/L (0.7-2.1); Lipase 33 U/L (23-300); Potassium 3.7 mmol/L (3.4-5.1); Sodium 136 mmol/L (137-145); Total Protein 7.4 g/dL (6.3-8.2)
[2024-10-23 01:06] LABS: NT-proBNP (BNP-Adult 18+) 180 pg/mL (<125); Troponin I < 0.012 ng/mL (0.01-0.034)
[2024-10-23] MEDS: NITROGLYCERIN 0.4 MG SL TAB SL (01:06)
[2024-10-23] MEDS: ASPIRIN 81 MG CHEW TAB 324 MG PO (01:06)
[2024-10-23 03:03] LABS: Troponin I < 0.012 ng/mL (0.01-0.034)
== END 2024-10-23 03:19 | disposition home or self-care (01) ==
PROVIDERS: Emergency Provider Student in an Organized Health Care Education/Training Program
DX: R07.9 Chest pain, unspecified (principal); I10 Essential (primary) hypertension
CPT/HCPCS: 36415; 71045; 80053; 82550; 83605; 83690; 83735; 83880; 84484; 85025; 85610; 85730; 93005; 93010; 99284

== ENCOUNTER 2024-12-07 20:55 | Emergency (ER) | payer MEDICARE, MEDICAID, SELFPAY ==
[2023-11-07 21:09] VITALS: BMI 33.2
[2024-12-07 20:58] VITALS: BP 144/74; PULSE 62; RESP 18; TEMP 37.3; O2SAT 94; BMI 31.8
[2024-12-07] MEDS: ACETAMINOPHEN 325 MG TABLET 975 MG PO (21:07)
--- NOTE | 2024-12-07 21:16 | DI.RAD.S_ITS ---
PROCEDURE: XR ELBOW LT MIN 3V INDICATIONS: fall one week ago, pain TECHNIQUE: 3 views of the elbow were acquired. COMPARISON: None. FINDINGS AND IMPRESSION: Mild arthrosis. No displaced fracture or dislocation. No significant joint effusion. If there is high concern for occult injury, consider repeat radiography in about 7 days or cross-sectional imaging. Dictated by: Yonathan Person M.D. on 12/07/2024 at 22:06 Approved by: Yonathan Person M.D. on 12/07/2024 at 22:06
--- NOTE | 2024-12-07 23:14 | ED_ITS ---
HPI - Fall General Chief Complaint: Fall Stated Complaint: fell x week ago, Lt side arm+rib pain Time Seen by Provider: 12/07/24 23:13 Source: patient Mode of arrival: Ambulatory History of Present Illness HPI Narrative: Patient is a 64-year-old male without any significant past medical history not on blood thinners presents to the emergency department from home for evaluation of left elbow and left rib pain, he states that a proximally 1 week ago he was on a ladder states he was on 4 or 5 steps high and fell to the left side denies head strike states he is only having pain to the left lower ribs as well as left elbow, he denies any other symptoms at this time Related Data Home Medications ?Medication ?Instructions ?Recorded ?Confirmed methadone 10 mg tablet 44 mg PO DAILY 11/02/2301/10 tamsulosin 0.4 mg capsule (Flomax) 0.4 mg PO BEDTIME 0 11/02/23 10/23/24 Previous Rx's ?Medication ?Instructions ?Recorded lidocaine 5 % topical patch 1 patch topical DAILY PRN pain #15 12/08/24 ea methocarbamol 500 mg tablet 500 mg PO BID 5 days #10 t abs 12/08/24 naproxen 500 mg tablet (Naprosyn) 500 mg PO BID PRN pa in 5 days #10 12/08/24 tabs Allergies Allergy/AdvReac Type Severity Reaction Status Date / Time No Known Drug Allergies Allergy Verified 12/07/24 20:58 Review of Systems Review of Systems Narrative: General: Denies fever, chills, weight loss HEENT: Denies headache, eye drainage, eye irritation, head trauma, sore throat, voice change Cardiovascular: Denies any chest pain, palpitations, tachycardia Respiratory: Denies any shortness of breath, cough, wheeze, stridor GI/: Denies any abdominal pain, nausea, vomiting, diarrhea, bright red blood per rectum, melanotic stools, urinary frequency, urinary retention, dysuria, hematuria MSK: Positive left elbow and left rib pain Skin: Denies any rashes, lesions, discoloration Neuro: Denies any headache, lightheadedness, dizziness, fainting, weakness Psych: Denies SI/HI Patient History Medical History Methadone maintenance therapy patient Hypertension BPH (benign prostatic hyperplasia) Chronic back pain Social History household members: spouse alcohol intake: never Smoking Status: Never smoker alcohol intake frequency: 0-2 drinks per day Exam Narrative Exam Narrative: General: Cooperative, well-developed, not in acute distress HEENT: Normocephalic, atraumatic, PERRLA, normal sclera, eyelids normal Neck: Active full range of motion, atraumatic Chest: Normal to inspection, negative crepitus, no overlying erythema ecchymosis Respiratory: Normal respiratory effort, not in acute respiratory distress, clear to auscultation bilaterally negative cough, wheeze, tachypnea, rhonchi, rales Cardiology: Regular rate rhythm negative gallop, murmur, rubs GI/: No tenderness to palpation, soft, non rigid, normal to inspection, exam deferred MSK: Full active range of motion in all 4 extremities, patient without any tenderness to palpation of any bony prominences bilateral upper extremities neurovascular intact, there is some mild tenderness to palpation of the anterior lower left ribs but no ecchymosis gross deformity Skin: No rashes or lesions noted Neuro: Alert awake oriented x3, moves all 4 extremities spontaneously, cranial nerves intact, able to answer all questions appropriately follows commands appropriately Psych: Cooperative, negative suicidal or homicidal ideations Initial Vital Signs Initial Vital Signs: Vital Signs Temperature 99.1 F 12/07/24 20:58 Pulse Rate 62 12/07/24 20:58 Respiratory Rate 18 12/07/24 20:58 Blood Pressure 144/74 H 12/07/24 20:58 Pulse Oximetry 94 12/07/24 20:58 Oxygen Delivery Method Room Air 12/07/24 20:58 Course Orders Ordered: ED Orders 12/07/24 21:16 XR elbow LT min 3V Stat Discontinued Medications Acetaminophen (Acetaminophen 325 Mg Tablet) 975 mg PO NOW ONE Stop: 12/07/24 21:04 Last Admin: 12/07/24 21:07 Dose: 975 mg Documented By: NIRU Vital Signs Vital signs: Vital Signs - 8 hr 12/07/24 20:58 Temperature 99.1 F Pulse Rate 62 Respiratory Rate 18 Blood Pressure 144/74 H Pulse Oximetry 94 Oxygen Delivery Method Room Air MDM - Fall Differential Diagnosis Differential diagnosis: Likely other (Rib fracture, chest contusion, elbow fracture, arm contusion) Imaging Data Extremity x-ray #1: Radiologist's Impression: [address] [address] XRay Report Signed Patient: Mahendra Norwood MR#: [id number] : 1960 Acct:[id number] Age/Sex: 64 / M Date of Service: 12/07/24 Loc: ED Accession Number: [id number] Procedure: XR elbow LT min 3V Ordering Provider: Pradeep Knowles D.O. PROCEDURE: XR ELBOW LT MIN 3V INDICATIONS: fall one week ago, pain TECHNIQUE: 3 views of the elbow were acquired. COMPARISON: None. FINDINGS AND IMPRESSION: Mild arthrosis. No displaced fracture or dislocation. No significant joint effusion. If there is high concern for occult injury, consider repeat radiography in about 7 days or cross-sectional imaging. CT scan - chest: Radiologist's Impression: [address] [address] [address] Scan Report Signed Patient: Mahendra Norwood MR#: [id number] : 1960 Acct:[id number] Age/Sex: 64 / M Date of Service: 12/07/24 Loc: ED Accession Number: [id number] Procedure: CT chest wo con Ordering Provider: Pradeep Knowles D.O. PROCEDURE: CT CHEST WO CON INDICATIONS: trauma left sided rib pain TECHNIQUE: Noncontrast 5 mm thick sections acquired from the pulmonary apices to the posterior costophrenic angles. 1 mm lung window, 5 mm thick coronal and sagittal and 7 mm axial MIP reformats were then acquired. For radiation dose reduction, the following was used: automated exposure control, adjustment of mA and/or kV according to patient size. COMPARISON: None. FINDINGS: Image quality: Diagnostic Lungs and pleura: No pneumothorax. Bibasal atelectasis. No pulmonary laceration. No dense airspace consolidation. Mild basal atelectasis. Micro nodules and granulomas for example in the right . Follow-up is range optional for high risk patients in [address] Mediastinum, heart, and esophagus: Coronary calcifications. Borderline cardiomegaly. No pathologic lymphadenopathy by size criteria. Unremarkable esophagus. Chest wall and thyroid: Unremarkable Upper abdomen: Nonobstructing left renal calculi partially seen. Bones: There are degenerative osseous changes. No displaced fracture is identified. IMPRESSION: No definite acute traumatic abnormality. No displaced fractures identified. Other findings above. MDM Narrative Medical decision making narrative: Patient is a 64-year-old male without any significant past medical history presents to the emergency department from home for evaluation of left elbow/chest pain, he states that he fell approximately a week ago on a ladder, he denies head strike no LOC no blood thinners, he states that he had persistent pain therefore decided come into the ED for further evaluation treatment. On exam some mild tenderness to palpation to the left anterior chest but no gross deformity no ecchymosis, there is no tenderness to palpation to bony prominence to the left arm but states that there is some pain with motion therefore will place patient in a sling, he is neurovascularly intact to bilateral upper extremities otherwise. Patient will be treated with symptomatic relief and instructed to follow up with the primary care in outpatient setting, he was given strict return precautions he verbalized understanding of this and agrees to being discharged home with outpatient follow up Discharge Plan Departure Patient Disposition: Home Clinical Impression: Chest wall contusion, Arm pain, left Activity Restrictions/Additional Instructions: Please follow up with the primary care in outpatient setting and orthopedic surgery as needed Please read the discharge instructions sheet carefully and bring all papers to all doctor follow-up visits, as it may contain information that your doctor may want to see. Disease processes change and evolve, if your symptoms worsen or if you develop any new symptoms that are concerning to you please return for evaluation. Your evaluation today does not show any evidence of any life- threatening/serious illnesses requiring admission to the hospital or surgery. Please follow-up with your doctor for re-evaluation in approximately 1 day. Seek immediate medical attention for any worrisome symptoms. *If you do not have a primary care provider please contact the [facility] Resource line at [phone]. They will ask some questions about your medical history and help get you set up with a doctor in the community. Prescriptions: New lidocaine 5 % adhesive patch,medicated 1 patch topical DAILY PRN (Reason: pain) Qty: 15 0RF Rx Instructions: leave on most painful area for up to 12 hrs methocarbamol 500 mg tablet 500 mg PO BID 5 Days Qty: 10 0RF naproxen [Naprosyn] 500 mg tablet 500 mg PO BID PRN (Reason: pain) 5 Days Qty: 10 0RF No Action methadone 10 mg Tablet 44 mg PO DAILY tamsulosin [Flomax] 0.4 mg Capsule 0.4 mg PO BEDTIME Referrals: Miscellaneous,Doctor, MD [Primary Care Provider, Medical] Stand Alone Forms: Patient Portal/API
[2024-12-08 00:49] VITALS: BP 140/72; PULSE 61; RESP 18; O2SAT 99
== END 2024-12-08 00:51 | disposition home or self-care (01) ==
PROVIDERS: Emergency Provider Student in an Organized Health Care Education/Training Program
DX: S20.212A Contusion of left front wall of thorax, initial encounter (principal); M25.522 Pain in left elbow; W11.XXXA Fall on and from ladder, initial encounter
CPT/HCPCS: 71250; 73080; 99283; 99284

== ENCOUNTER 2025-03-06 21:23 | Emergency (ER) | payer MEDICARE, MEDICAID, SELFPAY ==
[2023-11-07 21:09] VITALS: BMI 33.2
[2025-03-06 21:26] VITALS: BP 182/95; PULSE 55; RESP 18; TEMP 37.1; O2SAT 96; BMI 31.8
[2025-03-06] MEDS: ACETAMINOPHEN 325 MG TABLET 975 MG PO (21:33)
--- NOTE | 2025-03-06 23:46 | DI.CT.S_ITS ---
PROCEDURE: CT HEAD/BRAIN WO CON INDICATIONS: Hit head, worsening nausea TECHNIQUE: Noncontrast 4.5 mm thick angled axial sections acquired from the foramen magnum to the vertex, with coronal and sagittal reformats. For radiation dose reduction, the following was used: automated exposure control, adjustment of mA and/or kV according to patient size. COMPARISON: [facility], CT, CT HEAD/BRAIN WO CON, 03/12/2024, 1:03. FINDINGS: Image quality: Diagnostic. CSF spaces: Basal cisterns are patent. No extra-axial fluid collections. The ventricles are symmetric in size and shape. Brain: No intracranial bleeds or mass effect. There is cerebral volume loss, with resultant ventricular and sulcal prominence. There are periventricular and deep white matter chronic small vessel ischemic changes. There is intracranial internal carotid artery atherosclerosis. Skull and face: Calvarium and visualized facial bones appear intact, without suspicious lesions. Sinuses: Visualized sinuses and mastoids are clear. IMPRESSION: No acute intracranial pathology. Dictated by: Rikki George M.D. on 03/07/2025 at 0:15 Approved by: Rikki George M.D. on 03/07/2025 at 0:16
[2025-03-06 23:52] VITALS: BP 137/79; PULSE 50; RESP 16; O2SAT 96
--- NOTE | 2025-03-07 01:17 | ED_ITS ---
HPI - Head Injury General Chief complaint: Head Injury Stated complaint: hit head, nausea , blurry vision Time Seen by Provider: 03/06/25 23:46 Source: patient Mode of arrival: Ambulatory History of Present Illness HPI Narrative: 65-year-old male struck the top of his head backing out underneath his deck a few hours prior to arrival, hit top of head on a wood beam, local abrasion, did not lose consciousness, has had nausea since then. Did have some neck discomfort. No numbness or tingling to the arms or legs. No focal weakness to face arm or leg. Related Data Home Medications ?Medication ?Instructions ?Recorded ?Confirmed methadone 10 mg tablet 44 mg PO DAILY 11/02/2301/10 tamsulosin 0.4 mg capsule (Flomax) 0.4 mg PO BEDTIME 0 11/02/23 10/23/24 Previous Rx's ?Medication ?Instructions ?Recorded lidocaine 5 % topical patch 1 patch topical DAILY PRN pain #15 12/08/24 ea Allergies Allergy/AdvReac Type Severity Reaction Status Date / Time No Known Drug Allergies Allergy Verified 02/16/25 00:02 Patient History Medical History Methadone maintenance therapy patient Hypertension BPH (benign prostatic hyperplasia) Chronic back pain Social History household members: spouse Smoking Status: Never smoker alcohol intake: never Smoking Status: Never smoker alcohol intake frequency: 0-2 drinks per day Exam Narrative Exam Narrative: GENERAL: Well-developed patient, in mild distress. HEAD: Vertex small abrasion 1.5 cm diameter, no active bleeding, no suturable lacerations. No crepitance. EYES: Pupils equal round and reactive. Extraocular motions intact. No scleral icterus. No injection or drainage. ENT: Nose without bleeding, purulent drainage. Throat without erythema, tonsillar hypertrophy or exudate. Airway patent. NECK: Trachea midline. Nontender midline, right mid cervical paracervical tenderness without gross step-off, moves neck well. CARDIOVASCULAR: Regular rate and rhythm without murmurs, gallops, or rubs. RESPIRATORY: Clear to auscultation. Breath sounds equal bilaterally. No wheezes, rales, or rhonchi. GASTROINTESTINAL: Abdomen soft, non-tender, nondistended. EXTREMITIES: No edema or joint tenderness. BACK: Nontender without deformity or crepitance. No flank tenderness. NEURO: AOx3. Motor functions grossly nonfocal. SKIN: No rash or erythema of visible areas Initial Vital Signs Initial Vital Signs: Vital Signs Temperature 98.7 F 03/06/25 21:26 Pulse Rate 55 L 03/06/25 21:26 Respiratory Rate 18 03/06/25 21:26 Blood Pressure 182/95 H 03/06/25 21:26 Pulse Oximetry 96 03/06/25 21:26 Oxygen Delivery Method Room Air 03/06/25 21:26 Course Orders Ordered: ED Orders 03/06/25 23:46 CT head/brain wo con Stat Discontinued Medications Acetaminophen (Acetaminophen 325 Mg Tablet) 975 mg PO NOW ONE Stop: 03/06/25 21:32 Last Admin: 03/06/25 21:33 Dose: 975 mg Documented By: NIRU Bacitracin (Bacitracin Oint 0.9 Gm Pckt) 1 applic TOP NOW ONE Stop: 03/07/25 01:31 Last Admin: 03/07/25 01:37 Dose: 1 applic Documented By: DANAE Vital Signs Vital signs: Vital Signs - 8 hr 03/06/25 21:26 03/06/25 23:52 03/07/25 01:46 Temperature 98.7 F Pulse Rate 55 L 50 L 50 L Respiratory Rate 18 16 14 Blood Pressure 182/95 H 137/79 156/84 H Pulse Oximetry 96 96 97 Oxygen Delivery Method Room Air Room Air Room Air MDM - Head Injury Imaging Data CT scan - head: Radiologist's Impression: [place] [address] CT Scan Report Signed Patient: Mahendra Norwood MR#: [id number] : 1960 Acct:[id number] Age/Sex: 65 / M Date of Service: 03/06/25 Loc: ED Accession Number: [id number] Procedure: CT head/brain wo con Ordering Provider: Buck Stein MD PROCEDURE: CT HEAD/BRAIN WO CON INDICATIONS: Hit head, worsening nausea TECHNIQUE: Noncontrast 4.5 mm thick angled axial sections acquired from the foramen magnum to the vertex, with coronal and sagittal reformats. For radiation dose reduction, the following was used: automated exposure control, adjustment of mA and/or kV according to patient size. COMPARISON: [facility], CT, CT HEAD/BRAIN WO CON, 03/12/2024, 1:03. FINDINGS: Image quality: Diagnostic. CSF spaces: Basal cisterns are patent. No extra-axial fluid collections. The ventricles are symmetric in size and shape. Brain: No intracranial bleeds or mass effect. There is cerebral volume loss, with resultant ventricular and sulcal prominence. There are periventricular and deep white matter chronic small vessel ischemic changes. There is intracranial internal carotid artery atherosclerosis. Skull and face: Calvarium and visualized facial bones appear intact, without suspicious lesions. Sinuses: Visualized sinuses and mastoids are clear. IMPRESSION: No acute intracranial pathology. Dictated by: Rikki George M.D. on 03/07/2025 at 0:15 Approved by: Rikki George M.D. on 03/07/2025 at 0:16 MDM Narrative Medical decision making narrative: 65-year-old male struck the top of the said backing out from underneath the deck, small abrasion in the top of his head, persisting nausea. Nonfocal exam. No suturable laceration at vertex scalp. Advised local antibiotic ointment. Some discomfort right mid cervical spine, offered CT cervical spine imaging which he declined. Feels better after Motrin taken prior to arrival. He would like to go home, discharge per patient request. Discharge Plan Departure Patient Disposition: Home Clinical Impression: Closed head injury without concussion, Nausea, Neck pain Prescriptions: No Action methadone 10 mg Tablet 44 mg PO DAILY tamsulosin [Flomax] 0.4 mg Capsule 0.4 mg PO BEDTIME lidocaine 5 % adhesive patch,medicated 1 patch topical DAILY PRN (Reason: pain) Qty: 15 0RF Rx Instructions: leave on most painful area for up to 12 hrs Referrals: Miscellaneous,Doctor, MD [Primary Care Provider, Medical] Stand Alone Forms: Patient Portal/API
[2025-03-07] MEDS: BACITRACIN OINT 0.9 GM PCKT 1 APPLIC TOP (01:37)
[2025-03-07 01:46] VITALS: BP 156/84; PULSE 50; RESP 14; O2SAT 97
== END 2025-03-07 01:47 | disposition home or self-care (01) ==
PROVIDERS: Emergency Provider Emergency Medicine
DX: S09.90XA Unspecified injury of head, initial encounter (principal); M54.2 Cervicalgia; R11.0 Nausea; W22.8XXA Striking against or struck by other objects, initial encounter
CPT/HCPCS: 70450; 99283; 99284